=== PATIENT | female | born 1965 | race Caucasian/White ===

== ENCOUNTER 2017-03-17 13:17 | Emergency (ER) | payer OTHER ==
[2017-03-17] MEDS: NS 0.9% 1000 ML* 1,000 ML IV SCH ×2 (18:42→22:04)
[2017-03-17 18:50] LABS: Hematocrit 42 % (35-47); Hemoglobin 13.9 g/dl (12.0-16.0); Mean Corpuscular HGB Conc 33 g/dl (31-36); Mean Corpuscular Hemoglobin 28 pg (27-31); Mean Corpuscular Volume 86 fL (80-97); Mean Platelet Volume 10 um3 (7.4-10.4); Red Blood Count 4.94 10^6/ul (4.0-5.4); Red Cell Distribution Width 15 % (10.5-15); White Blood Count 11.1 10^3/ul (3.5-10.8)
[2017-03-17 19:03] LABS: Urine Bacteria Absent (Absent); Urine Bilirubin Negative (Negative); Urine Glucose Negative (Negative); Urine Nitrite Negative (Negative)
[2017-03-17 19:08] LABS: Albumin 4.6 g/dL (3.2-5.2); BUN/Creatinine Ratio 13.2 (8-20); C Reactive Protein 2.92 mg/L (< 5.00); Calcium 9.6 mg/dL (8.6-10.3); EGFR African American 116.9 (>60); EGFR Non-African American 90.9 (>60); Globulin 3.6 g/dL (2-4); Potassium 3.4 mmol/L (3.5-5.0); Total Bilirubin 0.3 mg/dL (0.2-1.0); Total Protein 8.2 g/dL (6.4-8.9)
[2017-03-17] MEDS ORDERED: Iodixanol* (CONTRAST) 320 MG/ML 100 ML SDV IV ONE (20:06)
--- NOTE | 2017-03-17 20:08 | ED ---
Matteo Guerin Matthew, scribed for Sawyer Bolivar MD on 03/17/17 at 2008 . Abdominal Pain/Female - HPI Summary HPI Summary: A 51 y/o female presents to the ED with abdominal pain since 2 days ago. The pain is rated 8/10 in severity. Associated symptoms include bloating and decreased appetite. She states that she had an abdominal hernia 6 years ago and her current pain feels similar. - History of Current Complaint Chief Complaint: EDAbdPain Stated Complaint: ABDOMINAL PAIN Time Seen by Provider: 03/17/17 19:32 Hx Obtained From: Patient ?: No Onset/Duration: Lasting Days, Still Present Timing: Constant Severity Initially: Moderate Severity Currently: Moderate Pain Intensity: 8 Pain Scale Used: 0-10 Numeric Associated Signs and Symptoms: Positive: Decreased Appetite, Other: - Bloating Allergies/Adverse Reactions: Allergies Allergy/AdvReac Type Severity Reaction Status Date / Time Penicillins [PCN] Allergy Intermediate Rash Verified 03/17/17 18:06 Aspirin Allergy Blisters Verified 03/17/17 18:06 Latex Allergy Rash Verified 03/17/17 18:06 NSAIDs Allergy Rash Verified 03/17/17 18:06 Sulfa Antibiotics Allergy Rash Verified 03/17/17 18:06 Meloxicam AdvReac Itching Verified 03/17/17 18:06 Tramadol AdvReac Unknown Verified 03/17/17 18:06 Reaction Details PMH/Surg Hx/FS Hx/Imm Hx Endocrine/Hematology History: Reports: Hx Diabetes - borderline type 2 Cardiovascular History: Reports: Hx Hypertension Denies: Hx Pacemaker/ICD Respiratory History: Reports: Hx Asthma, Hx Chronic Obstructive Pulmonary Disease (COPD) History: Denies: Hx Renal Disease Musculoskeletal History: Reports: Hx Arthritis, Hx Back Problems Denies: Hx Osteoporosis Sensory History: Reports: Hx Contacts or Glasses Denies: Hx Hearing Aid Opthamlomology History: Reports: Hx Contacts or Glasses Psychiatric History: Denies: Hx Panic Disorder - Cancer History Hx Chemotherapy: No Hx Radiation Therapy: No - Surgical History Surgery Procedure, Year, and Place: APPY, CHOLECYSTECTOMY, CSECTION X 1, EXPLORATORY STOMACH SURGERY, HYSTERECTOMY. STOMACH MESH - HERNIATION WITH MESH REPAIR. Infectious Disease History: No Infectious Disease History: Denies: Traveled Outside the [place] in Last 30 Days - Family History Family History: No FHx of breast CA - Social History Alcohol Use: None Substance Use Type: Reports: Marijuana Substance Use Comment - Amount & Last Used: SMOKES MARIJUANA OCCASSIONALLY, NONE IN LAST MONTH Smoking Status (MU): Current Every Day Smoker Type: Cigarettes Amount Used/How Often: 1/2 PPD Review of Systems Constitutional: Negative Eyes: Negative ENT: Negative Cardiovascular: Negative Respiratory: Negative Gastrointestinal: Other - decreased appetite; abdominal bloating Positive: Abdominal Pain Genitourinary: Negative Musculoskeletal: Negative Skin: Negative Neurological: Negative Psychological: Normal All Other Systems Reviewed And Are Negative: Yes Physical Exam Triage Information Reviewed: Yes Vital Signs On Initial Exam: Initial Vitals Temp Pulse Resp BP Pulse Ox 97.7 F 87 19 177/96 97 03/17/17 13:20 03/17/17 13:20 03/17/17 13:20 03/17/17 13:20 03/17/17 13:20 Vital Signs Reviewed: Yes Appearance: Positive: Well-Appearing, Pain Distress - mild discomfort, Obese Skin: Positive: Warm Head/Face: Positive: Normal Head/Face Inspection Eyes: Positive: ALYSE ENT: Positive: Hearing grossly normal Neck: Positive: Supple Respiratory/Lung Sounds: Positive: Clear to Auscultation, Breath Sounds Present Cardiovascular: Positive: RRR Abdomen Description: Positive: No Organomegaly, Soft, Other: - mild mid abd tenderness Bowel Sounds: Positive: Present Musculoskeletal: Positive: Strength/ROM Intact Neurological: Positive: Sensory/Motor Intact, Alert, Oriented to Person Place, Time Psychiatric: Positive: Affect/Mood Appropriate Diagnostics - Vital Signs Vital Signs Temp Pulse Resp BP Pulse Ox 03/17/17 18:05 78 97 03/17/17 18:03 139/94 03/17/17 18:02 97.4 F 80 18 139/94 98 03/17/17 16:40 97.6 F 81 17 136/68 97 03/17/17 15:49 97.7 F 71 19 130/70 98 03/17/17 14:30 97.6 F 81 17 135/74 98 03/17/17 13:20 97.7 F 87 19 177/96 97 - Laboratory Lab Results: Lab Results 03/17/17 03/17/17 03/17/17 Range/Units 16:44 18:40 18:40 WBC 11.1 H (3.5-10.8) 10^3/ul RBC 4.94 (4.0-5.4) 10^6/ul Hgb 13.9 (12.0-16.0) g/dl Hct 42 (35-47) % MCV 86 (80-97) fL MCH 28 (27-31) pg MCHC 33 (31-36) g/dl RDW 15 (10.5-15) % Plt Count 182 (150-450) 10^3/ul MPV 10 (7.4-10.4) um3 Neut % (Auto) 63.0 (38-83) % Lymph % (Auto) 27.9 (25-47) % Schuyler % (Auto) 7.0 (1-9) % Eos % (Auto) 1.2 (0-6) % Baso % (Auto) 0.9 (0-2) % Absolute Neuts (auto) 7.0 (1.5-7.7) 10^3/ul Absolute Lymphs (auto) 3.1 (1.0-4.8) 10^3/ul Absolute Monos (auto) 0.8 (0-0.8) 10^3/ul Absolute Eos (auto) 0.1 (0-0.6) 10^3/ul Absolute Basos (auto) 0.1 (0-0.2) 10^3/ul Absolute Nucleated RBC 0.01 10^3/ul Nucleated RBC % 0.1 INR (Anticoag Therapy) 0.82 L (0.89-1.11) APTT 28.2 (26.0-36.3) seconds Sodium (133-145) mmol/L Potassium (3.5-5.0) mmol/L Chloride (101-111) mmol/L Carbon Dioxide (22-32) mmol/L Anion Gap (2-11) mmol/L BUN (6-24) mg/dL Creatinine (0.51-0.95) mg/dL Est GFR ( Amer) (>60) Est GFR (Non-Af Amer) (>60) BUN/Creatinine Ratio (8-20) Glucose (70-100) mg/dL POC Glucose (mg/dL) 113 H (74-106) mg/dL Lactic Acid (0.5-2.0) mmol/L Calcium (8.6-10.3) mg/dL Total Bilirubin (0.2-1.0) mg/dL AST (13-39) U/L ALT (7-52) U/L Alkaline Phosphatase (34-104) U/L C-Reactive Protein (< 5.00) mg/L Total Protein (6.4-8.9) g/dL Albumin (3.2-5.2) g/dL Globulin (2-4) g/dL Albumin/Globulin Ratio (1-3) Lipase (11.0-82.0) U/L Urine Color Urine Appearance Urine pH (5-9) Ur Specific Hazen (1.010-1.030) Urine Protein (Negative) Urine Ketones (Negative) Urine Blood (Negative) Urine Nitrate (Negative) Urine Bilirubin (Negative) Urine Urobilinogen (Negative) Ur Leukocyte Esterase (Negative) Urine WBC (Auto) (Absent) Urine RBC (Auto) (Absent) Ur Squamous Epith Cells (Absent) Urine Bacteria (Absent) Urine Glucose (Negative) 03/17/17 03/17/17 03/17/17 Range/Units 18:40 18:40 18:45 WBC (3.5-10.8) 10^3/ul RBC (4.0-5.4) 10^6/ul Hgb (12.0-16.0) g/dl Hct (35-47) % MCV (80-97) fL MCH (27-31) pg MCHC (31-36) g/dl RDW (10.5-15) % Plt Count (150-450) 10^3/ul MPV (7.4-10.4) um3 Neut % (Auto) (38-83) % Lymph % (Auto) (25-47) % Schuyler % (Auto) (1-9) % Eos % (Auto) (0-6) % Baso % (Auto) (0-2) % Absolute Neuts (auto) (1.5-7.7) 10^3/ul Absolute Lymphs (auto) (1.0-4.8) 10^3/ul Absolute Monos (auto) (0-0.8) 10^3/ul Absolute Eos (auto) (0-0.6) 10^3/ul Absolute Basos (auto) (0-0.2) 10^3/ul Absolute Nucleated RBC 10^3/ul Nucleated RBC % INR (Anticoag Therapy) (0.89-1.11) APTT (26.0-36.3) seconds Sodium 137 (133-145) mmol/L Potassium 3.4 L (3.5-5.0) mmol/L Chloride 100 L (101-111) mmol/L Carbon Dioxide 28 (22-32) mmol/L Anion Gap 9 (2-11) mmol/L BUN 9 (6-24) mg/dL Creatinine 0.68 (0.51-0.95) mg/dL Est GFR ( Amer) 116.9 (>60) Est GFR (Non-Af Amer) 90.9 (>60) BUN/Creatinine Ratio 13.2 (8-20) Glucose 123 H (70-100) mg/dL POC Glucose (mg/dL) (74-106) mg/dL Lactic Acid 2.3 H* (0.5-2.0) mmol/L Calcium 9.6 (8.6-10.3) mg/dL Total Bilirubin 0.30 (0.2-1.0) mg/dL AST 21 (13-39) U/L ALT 25 (7-52) U/L Alkaline Phosphatase 111 H (34-104) U/L C-Reactive Protein 2.92 (< 5.00) mg/L Total Protein 8.2 (6.4-8.9) g/dL Albumin 4.6 (3.2-5.2) g/dL Globulin 3.6 (2-4) g/dL Albumin/Globulin Ratio 1.3 (1-3) Lipase 26 (11.0-82.0) U/L Urine Color Yellow Urine Appearance Cloudy Urine pH 5.0 (5-9) Ur Specific Hazen 1.013 (1.010-1.030) Urine Protein Negative (Negative) Urine Ketones Negative (Negative) Urine Blood Negative (Negative) Urine Nitrate Negative (Negative) Urine Bilirubin Negative (Negative) Urine Urobilinogen Negative (Negative) Ur Leukocyte Esterase 1+ H (Negative) Urine WBC (Auto) 1+(6-10/hpf) H (Absent) Urine RBC (Auto) Trace(0-2/hpf) (Absent) Ur Squamous Epith Cells Present H (Absent) Urine Bacteria Absent (Absent) Urine Glucose Negative (Negative) Result Diagrams: 03/17/17 18:40 03/17/17 18:40 Lab Statement: Any lab studies that have been ordered have been reviewed, and results considered in the medical decision making process. - CT A/P CT CT Interpretation: No Acute Changes - IMPRESSION: 1. NO EVIDENCE FOR ACUTE FINDING OR CAUSE FOR THE PATIENT'S ABDOMINAL PAIN IS SEEN. 2. HEPATOMEGALY AND HEPATIC STEATOSIS. 3. STATUS POST CHOLECYSTECTOMY AND HYSTERECTOMY. 4. STATUS POST ANTERIOR ABDOMINAL WALL HERNIA REPAIR. NO EVIDENCE FOR RECURRENT HERNIA. CT Interpretation Completed By: Radiologist Re-Evaluation - Re-Evaluation First Eval Change: Improved Comment: results d/w pt Abdominal Pain Fem Course/Dx - Course Course Of Treatment: A 51 y/o female presents to the ED with abdominal pain since 2 days ago. The pain is rated 8/10 in severity. Associated symptoms include bloating and decreased appetite. She states that she had an abdominal hernia 6 years ago and her current pain feels similar. Labs were reviewed and lactic acid was 2.3. CT A/P shows 1. no evidence for acute finding or cause for the patient's abdominal pain is seen. 2. hepatomegaly and hepatic steatosis. 3. status post cholecystectomy and hysterectomy. 4. status post anterior abdominal wall hernia repair. no evidence for recurrent hernia. In the ED course, the patient was given Morphine and 1L of IV fluids. The patient will be discharged home to follow-up with her PCP. - Diagnoses Provider Diagnoses: Abdominal pain Discharge - Discharge Plan Condition: Stable Disposition: HOME Patient Education Materials: Abdominal Pain (ED) Referrals: Maddie Manzo MD [Primary Care Provider] - 2 Days Additional Instructions: Please follow-up with your primary care physician in 2 days. The documentation as recorded by the Matteo lemos Matthew accurately reflects the service I personally performed and the decisions made by me, Sawyer Bolivar MD.
[2017-03-17] MEDS ORDERED: Morphine INJ* 2 MG/ML 1 ML SYRINGE IV ONE (21:35)
--- NOTE | 2017-03-17 22:44 | RAD ---
INDICATION: Abdominal pain, history of mesh hernia repair. COMPARISON: There are no prior studies available for comparison. TECHNIQUE: A CT scan of the abdomen and pelvis was performed with intravenous and oral contrast following intravenous injection of 114 ml of 320 nonionic contrast. Contiguous axial sections were obtained from the lung bases through the symphysis pubis. Images were reconstructed in the coronal and sagittal planes. FINDINGS: The lung bases are clear. No pleural effusion is present. The liver is moderately enlarged and decreased in attenuation consistent with fatty infiltration. No significant focal abnormality is seen. The patient is status post cholecystectomy. No intrahepatic ductal distention is seen. There is mild extrahepatic ductal distention measuring 1 cm in diameter likely within normal limits in this postcholecystectomy patient. The spleen is within normal limits in size. The pancreas appears to be within normal limits. The kidneys and adrenal glands are normal in size. No hydronephrosis is seen. No significant focal renal abnormality is seen. The aorta is normal in caliber with mild calcific plaque present. No significant enlarged retroperitoneal lymph nodes are seen. The stomach, small and large bowel appear nondistended. The patient is status post appendectomy by history. There is no evidence for diverticulitis or colitis. The patient is status post anterior abdominal wall hernia repair. There is a mesh graft noted in place. There is no evidence for recurrent hernia. The patient is status post hysterectomy. No free intraperitoneal air or fluid is seen. No significant focal osseous abnormality is seen. IMPRESSION: 1. NO EVIDENCE FOR ACUTE FINDING OR CAUSE FOR THE PATIENT'S ABDOMINAL PAIN IS SEEN. 2. HEPATOMEGALY AND HEPATIC STEATOSIS. 3. STATUS POST CHOLECYSTECTOMY AND HYSTERECTOMY. 4. STATUS POST ANTERIOR ABDOMINAL WALL HERNIA REPAIR. NO EVIDENCE FOR RECURRENT HERNIA.
[2017-03-17 23:22] VITALS: BP 158/96
== END 2017-03-17 23:20 | disposition home or self-care (01) ==
LOC: ED 13:17
DX: R10.9 Unspecified abdominal pain (principal); F17.210 Nicotine dependence, cigarettes, uncomplicated
CPT/HCPCS: 36415; 74177; 80053; 81003; 81015; 83605; 83690; 85025; 85610; 85730; 86140; 87086; 99283; J2270; Q9967

== ENCOUNTER 2019-06-01 08:45 | Inpatient (IN) | payer OTHER ==
--- NOTE | 2019-05-16 13:40 | HP ---
AMENDED REPORT NOW INCLUDES DESIGNATED COSIGNER PREOPERATIVE HISTORY AND PHYSICAL: DATE OF ADMISSION: 06/01/19 ATTENDING PHYSICIAN: Dr. Tamia Odom.* (DICTATED BY JONO SOMMER) CHIEF COMPLAINT: Left hip pain. SURGERY SCHEDULED: Left total hip arthroplasty. HISTORY OF PRESENT ILLNESS: Ms. Paige is a 53-year-old female with a history of 2 years of left hip pain. She has 8/10 pain in her left groin and lateral hip. She is needed to use a cane. She has tried antiinflammatories, pain medication, muscle relaxers, ice, rest, home exercise program, and physical therapy without relief of her left hip pain. Her plain films revealed advanced degenerative arthritis and she is now elected to proceed with left total hip arthroplasty, which is scheduled for 06/01/19. PAST MEDICAL HISTORY: Significant for hypertension, COPD, asthma, hypercholesterolemia, chronic back pain, lupus, diabetes, depression, anxiety and sleep apnea. PAST SURGICAL HISTORY: She has had cataract surgery both eyes, , appendectomy, cholecystectomy, abdominal laparotomy, hernia repair. CURRENT MEDICATIONS: 1. Gabapentin 400 mg 1 tablet t.i.d. 2. Metformin 500 mg 1 tablet b.i.d. 3. Lisinopril/hydrochlorothiazide 20/12.5 mg 1 p.o. daily. 4. Potassium chloride ER 20 mEq 1 tablet daily. 5. Nicotrol 10 mg inhaler every 1 to 3 hours as needed. 6. Clonazepam 0.5 mg 1 q.a.m., 1 q.p.m., and 2 q.h.s. 7. Escitalopram 20 mg p.o. daily. 8. Amlodipine 2.5 mg p.o. daily. 9. Fenofibrate 160 mg p.o. daily. 10. Albuterol inhaler, nebulizer 4 times a day as needed. 11. Omeprazole 40 mg 1 tablet q.a.m. 12. Nateglinide 60 mg 3 times daily. 13. Trazodone 300 mg 1 p.o. q.h.s. 14. Methocarbamol 500 mg 2 tabs p.o. t.i.d. p.r.n. muscle spasm. ALLERGIES: To PENICILLIN, SULFA, LATEX, TRAMADOL, MELOXICAM, ADHESIVE TAPE, and BEE VENOM. FAMILY HISTORY: Mother with a history of diabetes and hypertension. Father with a history of colorectal cancer and lung cancer. SOCIAL HISTORY: The patient states she lives alone. She is currently disabled. She continues to smoke cigarettes, roughly one-half pack cigarettes per day. She denies use of alcohol. She states she uses marijuana for anxiety. REVIEW OF SYSTEMS: A 14-point review of systems reviewed. Positive for left hip pain, diarrhea, chronic back pain, prior fracture, weight loss, fatigue, easy bleeding and bruising, seasonal allergies, depression, and anxiety. PHYSICAL EXAMINATION GENERAL: She is alert and oriented x3, in no acute distress, pleasant, cooperative. VITAL SIGNS: Height 4 feet 10 inches tall, weight 186 pounds. Pulse 62, BP 124 /82. HEENT: PERRLA. EOMI. LUNGS: Clear to auscultation without wheeze. HEART: Regular rate and rhythm. Positive murmur auscultated. ABDOMEN: Soft, nontender. Normoactive bowel sounds x4 quadrants. EXTREMITIES: Left lower extremity: The patient's skin is intact. No abrasions or open wounds. Hip flexion to 95 degrees, 0 degrees internal rotation, 35 degrees external rotation. She has full sensation distally. She has active dorsiflexion of the left ankle. She has 2+ dorsalis pedis pulse. IMPRESSION: Advanced degenerative arthritis, left hip. PLAN: The patient has failed conservative management and continues to have debilitating left hip pain. She is scheduled for left total [place] Tamia [place] [facility] [place] The patient has been cleared medically by her primary care provider; however, cardiac clearance will need to be obtained due to the new onset murmur. She is scheduled to see a donor technician 05/26/19 for preoperative cardiology clearance. Risks and benefits of procedure fully discussed by Dr. Odom today. All questions were answered at her preoperative history and physical examination today 05/15/19. JONO VELASQUEZ [id number]/[facility] #: [id number]
[~2019-06-01 08:45] MED LIST: Acetaminophen TAB* 325 MG PO ONE; Buffered Lidocaine 1% SYRIN* 1 ML/SYRINGE INTRADERM ONE; Famotidine IV* 10 MG/ML 2 ML (20 mg) IV ONE; Lactated Ringers 1000 ML Bag* 1,000 ML IV SCH; Tranexamic Acid 1,000 MG in NS 0.9% 50 ML* (outpatient use) IV SCH
--- OUTSIDE RECORDS SUMMARY | 2019-06-01 08:49 | XMS REPORT | Continuity of Care Document ---
:1965 External Reference #:[id number] Author Name Carol Flores Care Team Providers Name Role Phone Carleen Murrieta M.D. Primary Care Physician Unavailable Payers Date Identification Numbers Payment Provider Subscriber Effective: 2012 Policy Number: [id number] Jonathan Juan Francisco Paige Group Name: [id number] [address] PayID: [id number] [place] [address] Advance Directives Type Date Description Status Comment Other Directive 11/19/2017 Health Care Proxy Current and Verified Problems Active Problems Provider Date Essential hypertension Maddie Manzo M.D. Onset: 03/24/2012 Degenerative joint disease involving multiple Maddie Manzo M.D. Onset: 01/2012 joints Tobacco user Maddie Manzo M.D. Onset: 03/24/2012 Chronic obstructive lung disease Maddie Manzo M.D. Onset: 03/24/2012 Family history of cancer of colon Maddie Manzo M.D. Onset: 01/30/2015 Note: 1st degree relative Internal hemorrhoids without Maddie Manzo M.D. Onset: 01/30/2015 complication Chronic paranoid schizophrenia Maddie Manzo M.D. Onset: 01/30/2015 Insomnia Maddie Manzo M.D. Onset: 01/30/2015 Hypertriglyceridemia Maddie Manzo M.D. Onset: 01/30/2015 Type 2 diabetes mellitus in obese Maddie Manzo M.D. Onset: 01/30/2015 Allergic rhinitis Maddie Manzo M.D. Onset: 12/30/2015 Morbid obesity Maddie Manzo M.D. Onset: 12/30/2015 Cannabis abuse Maddie Manzo M.D. Onset: 12/30/2015 Osteopenia Maddie Manzo M.D. Onset: 02/08/2013 Obstructive sleep apnea syndrome Nabil Beasley M.D. Onset: 04/09/2016 Obesity Bety Diallo DNP, RN, Onset: 07/22/2016 DISABILITY PROGRAM NAVIGATOR-BC Type 2 diabetes mellitus Jefferson Long M.D. Onset: 11/19/2017 Chronic obstructive pulmonary disease Jefferson Long M.D. Onset: 2016 with (acute) exacerbation Gastroesophageal reflux disease Jefferson Long M.D. Onset: 11/19/2017 Localized, primary osteoarthritis of Tamia Odom M.D. Onset: 04/10/2019 the pelvic region and thigh Inactive Problems Impaired fasting glycaemia Maddie Manzo M.D. Onset: 03/24/2012 Inactive: 02/03/2015 Family History Date Family Member(s) Observation Comments General Diabetes General Heart Disease General Hypertension General Stroke General Cancer General Rheumatoid Arthritis Father due to Heart () - smoker + Disease Colon cancer in late 50's Mother due to Pneumonia () - 70 Mother due to Diabetes () Onset: (age 23 Children 1 daughter ( healthy) Years) Siblings 4 Social History Type Date Description Comments Sex Unknown Marital Status Significant Other Marital Status Lives With Alone Occupation Unemployed ETOH Use Denies alcohol use Recreational Drug Use Current Drug User Tobacco Use Start: Unknown Heavy tobacco smoker (more than 10 cigarettes/day) Recreational Drug Use marihuana Smoking Status Reviewed: 05/15/19 Heavy tobacco smoker (more than 10 cigarettes/day) Exercise Type/Frequency Exercises regularly Currently Active Patient is currently sexually active Allergies, Adverse Reactions, Alerts Active Allergies Reaction Severity Comments Date Penicillin Contact dermatitis 03/24/2012 Sulfa Contact dermatitis 03/24/2012 Latex Contact dermatitis 03/24/2012 Antiinflamatory Drugs Blisters ?? has taken ibuprofen 03/24/2012 with no issues Bee Sting throat swelling 03/08/2013 /difficulty breathing Tramadol 03/24/2017 Meloxicam 03/24/2017 Adhesive 04/10/2019 Medications Active Medications SIG Qnty Indications Ordering Date Provider Clindamycin HCL take one tab 2 times 10caps Tamia Odom, 05/22/2019 150mg a day for 5 days M.D. Capsules Walker rolling walker with 1units Z47.1 Tamia Odom, 04/19/2019 [facility] [place] seat dx: s/p left M.D. hip replacement; left hip OA Toilet Seat Elevator s/p left hip 1units Z47.1 Tamia Odom, 04/19/2019 replacement M.D. [facility] [place] Cane standard adjustable 1units Tamia Odom, 04/10/2019 [facility] [place] height cane. dx: M.D. left hip OA Ketoconazole apply twice a day as 120units B35.4 [place] 07/28/2018 2% Cream needed Aurea Long Freestyle Lite Test test BS 2 times a 100units E11.9 [place] 07/15/2018 day and prn Pachika, Strips M.D. Calcium Take One Tablet By 90tabs [facility] 01/31/2018 Carbonate-Vitamin D Mouth Every Day Aurea Manzo [id number] Tablets Omeprazole Take 1 Capsule By 30caps K21.9 [place] 11/19/2017 40mg Mouth In The Morning EkaterinaikaMikhail scott DR 1 Hour Before Eating M.DAngel Nebulizer every 4-6 hrs as 1units J44.1 [facility] 09/01/2017 [facility] [place] needed Aurea Manzo Albuterol Sulfate Inhale The Contents 300units J44.1 [facility] 09/01/2017 Of One Vial Via Aurea Manzo (2.5mg/3ML) 0.083% Nebulizer Four Times Nebulizer A Day as Needed Fenofibrate take one tablet once 90tabs E78.1 [place] 07/06/2017 160mg daily Pachikara, Tablets Aurea Amlodipine Besylate take one tablet by 90tabs I10 Constantino Garcia 01/21/2016 mouth every day Ono, 2.5mg Tablets M.D.,FACP Freestyle Lancets 2 daily and as 100units E11.9 [facility] 08/06/2014 needed Aurea Manzo [facility] [place] Freestyle Glucometer test 2 times a day 1units Maddie 08/06/2014 Aurea Manzo Epipen 2-Timi subcutaneously as 2unmarcelle Perkins 05/27/2014 needed for Aurea Manzo 0.3mg/0.3ML Solution anaphylaxis Auto-Inject Ventolin HFA Inhale Two Puffs By 18unmarcelle Paulino 03/13/2013 Mouth Every 4 Hours Pachika, 108(90Base) mcg/Act as Needed M.DAngel Aerosol Potassium Chloride Take One Tablet By 30tabs Maddie 10/10/2012 [facility] ER Mouth Every Day Aurea Manzo 20Meq Tablets ER Cetirizine HCL 1 by mouth every day Unknown 10mg Tablets Betoptic-S Instill 1 Drop In Unknown 0.25% Both Eyes Two Times Suspension A Day Latanoprost as directed Christiana 0.005% Wayne Elias MD Solution Metformin HCL 1 by mouth twice a Unknown 500mg day Tablets Ibuprofen one tablet by mouth Unknown 600mg every 6 hours as Tablets needed pain Gabapentin take one capsule by Unknown 400mg mouth 3 times a day Capsules Hydrocodone-Acetamin 1 tab every 4 hours Unknown ophen up to 6 a day 7.5-325mg Tablets Lisinopril-Hydrochlo take one tablet by 90tabs Jefferson rothiazide mouth every day Mercedes 20-12.5mg M.DAngel Tablets Methocarbamol 2 tabs by mouth tid Unknown 500mg as needed for spasm Tablets Mirtazapine 1 tab po hs 30tabs Unknown 15mg Tablets Dispers Ziprasidone HCL 1 tab po qd Unknown 60mg Capsules Clonazepam 2 po qd 60tabs Unknown 0.5mg Tablets Trazodone HCL 1 po qhs 7tabs Unknown 300mg Tablets History Medications Clotrimazole apply twice daily 90gm B35.4 Jefferson 07/14/2018 - 1% to back of right Aurea Long 07/28/2018 Cream thigh Montelukast Sodium Take One Tablet By 30tabs J30.2 [place] 04/26/2018 - Mouth Every Day Aurea Long 05/01/2019 10mg Tablets Nateglinide three times a day 90tabs [place] 02/16/2018 - 60mg Aurea Long 05/01/2019 Tablets Prednisone 2 tab by mouth 5 10tabs [place] 11/30/2017 - 20mg days Aurea Long 01/13/2018 Tablets Metformin HCL Take One Tablet By 180tabs Constantino Garcia 11/29/2017 - Mouth Twice A Day Aurea Yarbrough,[facility] 05/01/2019 1000mg Tablets Azithromycin 2 tab today and 6tabs [place] 11/23/2017 - 250mg then 1tab daily Aurea Long 11/28/2017 Tablets Mucinex 1 tab twice a day 30tabs [place] 11/23/2017 - 600mg by mouth Aurea Long 04/25/2018 Tablets ER 12HR Cheratussin ac 10 milliliters by 473ml Constantino Garcia 09/16/2017 - mouth four times a Aurea Yarbrough,[facility] 11/19/2017 100-10mg/5ML Syrup day as needed Azithromycin 2 tab today and 6tabs J06.9 [place] 09/07/2017 - 250mg then 1tab daily Aurea Long 04/25/2018 Tablets Prednisone 3 tab by mouth QS J44.1 Maddie Manzo, 09/01/2017 - 20mg every day x1 day M.DAngel 09/11/2017 Tablets then 2 tab daily for 3 days, then 1 tab daily X 3 days then 1/2 tab daily for 3 days Nicotrol every 6 hrs as 168units F17.210 Maddie Manzo, 09/01/2017 - 10mg needed for M.D. 04/25/2018 Inhaler cravings Magnesium 1 by mouth daily 30tabs Maddie Manzo, 07/18/2017 - 400mg M.D. 05/01/2019 Tablets Calcium 600-D 1 by mouth every 90tabs Maddie Manzo, 02/24/2017 - day M.DAngel 01/31/2018 [id number] Tablets Atorvastatin 1 by mouth every 90tabs E78.2 Maddie Manzo, 02/15/2017 - Calcium day M.D. 07/06/2017 10mg Tablets Levaquin 1 by mouth every 14tabs S92.511A Philipp Armijo, 08/06/2016 - 500mg day x 14 days - M.D. 02/15/2017 Tablets verbal order given to lavelle at [facility] (No longer taking) Nicotine Step 3 once a day 30units Z71.6 Maddie Manzo, 07/23/2016 - M.D. 07/05/2017 7mg/24HR Patches 24HR Lidocaine apply patch up to 30units Maddie Manzo, 07/01/2016 - 5% 12 hours once a M.D. 03/23/2017 Patches day. (pt not using due to insurance) Lidocaine apply to painful 35.440gm Maddie Manzo, 05/05/2016 - 5% areas three times M.D. 03/23/2017 Ointment a day as needed. Ibuprofen Take One Tablet By 45tabs Maddie Manzo, 04/21/2016 - 400mg Mouth Every 8 hrs M.D. 05/02/2019 Tablets as Needed For Lower Back Pain (taking 600mg) Caltrate 600+D 1 by mouth once a 60tabs Maddie Manzo, 03/23/2016 - day M.D. 02/23/2017 [id number] Tablets Ibuprofen Take One Tablet By 30tabs Maddie Manzo, 03/16/2016 - 600mg Mouth Three Times M.D. 04/21/2016 Tablets A Day as Needed Freestyle 28G Use For Testing 100units Maddie Manzo, 01/16/2016 - Lancets Two Times A Day as M.D. 07/15/2018 Needed Freestyle Lite Test use for testing 100units E11.9 Jefferson 01/15/2016 - two times a day Rachel Long.DAngel 07/15/2018 Strip Atorvastatin take one tablet by 90tabs E78.1 Maddie Manzo, 12/30/2015 - Calcium mouth at bedtime M.D. 02/15/2017 20mg Tablets Ibuprofen Take One Tablet By 45tabs M15.0 Maddie Manzo, 12/16/2015 - 400mg Mouth Every Day as M.D. 03/16/2016 Tablets Needed For Lower Back Pain Permethrin apply to all body 1units B86 Maddie Manzo, 12/10/2015 - 5% Cream once/may repeat in M.D. 03/23/2017 1 week (Never used) Freestyle Lite Test Use as Directed 100units Shirlene 11/19/2015 - Every Day 2 To 3 Cotton, M.D. 01/15/2016 Strip Times Or as Needed Benzonatate one by mouth three 30caps Paola Hopson, 09/13/2015 - 100mg times daily as N.P. 09/23/2015 Capsules needed for cough Doxycycline Hyclate 1 tablet twice a 20tabs J01.80 Maddie Manzo, 2014 - day x 10 days M.D. 12/10/2015 100mg Tablets Prednisone take 4 tab daily x QS J44.1 Maddie Manzo, 09/12/2015 - 10mg 2 days then 3 tab M.D. 12/10/2015 Tablets daily x 3 days and then 2 tab daily x 3 days then 1 tab daily X 3 days Albuterol Sulfate every 6 hours as 75ml J44.1 Maddie Manzo, 09/12/2015 - needed M.D. 09/01/2017 1.25mg/3ML Nebulizer Percocet 11/23 -1 tab by 14tabs M15.0 Maddie Manzo, 08/05/2015 - 5-325mg mouth every 12 M.D. 12/16/2015 Tablets hours as needed pain Fexofenadine HCL 1 by mouth every 90tabs Maddie Manzo, 05/14/2015 - day as needed for M.D. 11/19/2017 180mg Tablets allergies Doxycycline Hyclate 1 tablet twice a 20tabs 461.8 Maddie Manzo, 2014 - day x 10 days M.D. 08/05/2015 100mg Tablets Requip Take One Tablet By 30tabs G25.81 Maddie Manzo, 05/14/2015 - 0.25mg Mouth AT Bedtime M.D. 04/09/2019 Tablets Nicotine Polacrilex as needed for 30units 305.1 Maddie Manzo, 2014 - cravings M.D. 05/14/2015 2mg Lozenges Fluticasone [place] One [place] In 16units Jefferson 02/20/2015 - Propionate Each Nostril Every Pachikara, M.D. 05/01/2019 Day 50mcg/Act Suspension Benzonatate one by mouth three 30caps Paola Hopson, 02/01/2015 - 100mg times daily as N.P. 02/15/2015 Capsules needed for cough Advair Diskus Inhale One puff By 60units J44.9 Maddie Manzo, 01/30/2015 - Mouth Twice A Day M.D. 04/09/2019 250-50mcg/Dose Aerosol Doxycycline Hyclate 1 by mouth twice a 14caps Maddie Manzo, 01/30/2015 - day M.D. 02/20/2015 100mg Capsules Azithromycin take 2 tab on day 6tabs 461.8 Maddie Manzo, 01/30/2015 - 250mg 1 then 1 tab daily M.D. 01/30/2015 Tablets x 4 days Freestyle Lite Test use as directed 100units Maddie Manzo, 08/06/2014 - Strip every day 2-3 or M.D. 11/19/2015 as needed dx: 250.00 Accucheck Purvi check bs 2 100units 250.00 Maddie Manzo, 08/02/2014 - Chem Strips times/day dx M.D. 08/06/2014 250.00 Accucheck Lancets check bs 2 times a 100units 250.00 Maddie Manzo, 08/02 - day M.D. 08/06/2014 Accu-Check Glucose check 2-3 times a 1units E11.9 Maddie Manzo, 2013 - Monitor day dx 250.00 M.D. 01/15/2016 Device Ibuprofen Take One Tablet By 90tabs 715.09 Maddie Manzo, 08/02/2014 - 600mg Mouth Three Times M.D. 12/16/2015 Tablets A Day as Needed for severe pain Metformin HCL Take One Tablet By 60tabs E11.9 Maddie Manzo, 08/02/2014 - 500mg Mouth Twice A Day M.D. 11/29/2017 Tablets Accu-Chek Softclix Use as Directed as 100units Maddie Manzo, 2012 - Lancets Needed M.D. 01/15/2016 Misc Caltrate 600+D 1 by mouth once a 60tabs Maddie Manzo, 09/14/2013 - day M.D. 03/23/2016 [id number] Tablets Fluconazole 1 po qd 2tabs 112.1 Maddie Manzo, 07/05/2013 - 150mg M.D. 08/07/2013 Tablets Calcium 500 +D 1 po bid 60tabs Maddie Manzo, 06/06/2013 - M.D. 09/14/2013 [id number] Tablets Fluconazole 1 po then repeat 2tabs Angélica Lee, 05/16/2013 - 150mg x1 in 1week M.D. 06/06/2013 Tablets Ergocalciferol 1 tab by mouth 8caps Maddie Manzo, 04/24/2013 - every week M.D. 06/06/2013 [id number] Capsules 2-Timi sc as needed as 1units Maddie Manzo, 03/20/2013 - 0.3mg/0.3ML needed for M.D. 08/05/2015 Device anaphylaxis Fluconazole 1 po qd 2tabs Maddie Manzo, 03/09/2013 - 150mg M.D. 06/06/2013 Tablets Nystatin apply to affected 5units 112.3 Maddie Manzo, 03/08/2013 - areas twice a day M.D. 08/07/2013 [id number]/GM as needed for rash Powder x 10 days Nicotine apply every day 30units 305.1 Maddie Manzo, 03/08/2013 - 7mg/24HR M.D. 08/07/2013 Patches 24HR Januvia 1 po qd 90tabs 112.1 Maddie Manzo, 01/25/2013 - 50mg M.D. 08/07/2013 Tablets Hydroxyzine tid Maddie Manzo, 12/27/2012 - M.D. 01/30/2015 Fluticasone 1 squirts each 1units 477.9 Maddie Manzo, 12/27/2012 - Propionate nostril qd M.D. 03/12/2014 50mcg/Act Suspension Claritin take one tablet by 90tabs 477.9 Maddie Manzo, 12/27/2012 - 10mg mouth every day as M.D. 05/14/2015 Tablets needed for [id number] Blood test daily 1units Juliana Spann, 11/11/2012 - Glucose Monitoring N.P. 01/15/2016 System w/Device Kit Truetest Blood test daily 50units Maddie Manzo, 11/11/2012 - Glucose T Est M.D. 01/15/2016 Strips Ciprofloxacin HCL 1 tab by mouth 20tabs 616.3 Maddie Manzo, 11/03/2012 - twice a day M.D. 12/27/2012 500mg Tablets Fluconazole 1 po qd 3tabs 112.1 Maddie Manzo, 11/03/2012 - 150mg M.D. 12/27/2012 Tablets Ciprofloxacin HCL 1 tab by mouth 14tabs 599.0 Maddie Manzo, 10/20/2012 - twice a day M.D. 11/03/2012 250mg Tablets Flovent Diskus 1 puff twice a 1units Maddie Manzo, 09/30/2012 - day, swish mouth M.D. 04/01/2015 250mcg/Blist 45 min afterwar Aerosol the intake Flovent Diskus 1 puff bid, swish 1units Maddie Manzo, 08/25/2012 - mouth 45 min M.D. 09/30/2012 250mcg/Blist afterwar the Aerosol intake Fluconazole 1 po daily X 3 3tabs Maddie Manzo, 08/11/2012 - 150mg days M.D. 08/16/2012 Tablets Albuterol Sulfate every 4-6 hrs as 1box Maddie Manzo, 08/04/2012 - needed M.D. 06/06/2013 (2.5mg/3ML) 0.083% Nebulizer Prednisone 3 tab by mouth 27tabs Maddie Manzo, 08/03/2012 - 20mg every day x3 days M.D. 08/16/2012 Tablets then 2 tab daily for 5 days, then 1 tab daily for 5 days then 1/2 tab daily for 5 days Levaquin 1 po qd 5tabs Maddie Manzo, 08/03/2012 - 750mg M.D. 08/16/2012 Tablets Percocet 1 tab po q12 h prn 10tabs 715.09 Angélica Lee, 08/02/2012 - 5-325mg pain M.D. 09/14/2013 Tablets Anusol-HC apply 5units 455.6 Maddie Manzo, 07/26/2012 - 25mg intrarectally M.D. 09/29/2012 Suppository every day Metamucil once a day as 30units 564.00 Maddie Manzo, 07/26/2012 - 48.57% needed M.D. 03/12/2014 Powder Percocet 1 tab bid 60tabs 715.98 Maddie Manzo, 06/30/2012 - 7.5-325mg M.D. 09/01/2012 Tablets Oxybutynin Chloride Take One Tablet By 90tabs Maddie Manzo, 06/13/2012 - Mouth Every Day M.D. 08/02/2014 5mg Tablets Vesicare once a day 30tabs 788.33 Maddie Manzo, 06/09/2012 - 5mg M.D. 06/13/2012 Tablets Oxycodone HCL 1 tablet po q 40tabs 715.09 Maddie Manzo, 06/09/2012 - 10mg 12hrs prn M.D. 07/10/2012 Tablets Nicotine as directed for 60units 305.1 Maddie Manzo, 05/26/2012 - 2mg Gum cravings M.D. 03/08/2013 Janumet Take One Tablet 90tabs Maddie Manzo, 05/04/2012 - 50-500mg tab by mouth every M.D. 01/25/2013 Tablets day Nicotine Polacrilex as needed for 60units 305.1 Maddie Manzo, 2011 - cravings M.D. 05/26/2012 2mg Lozenges Symbicort 2 puff inhaled bid 1units 496 Maddie Manzo, 04/25/2012 - M.D. 08/25/2012 160-4.5mcg/Act Aerosol Metformin HCL Take One Tablet By 60tabs Maddie Manzo, 03/30/2012 - 500mg Mouth Twice A Day M.D. 05/05/2012 Tablets Januvia Take One Tablet By 30tabs Maddie Manzo, 03/30/2012 - 50mg Mouth Every Day M.D. 05/05/2012 Tablets Gemfibrozil take one tablet by 180tabs E78.1 Maddielele Manzo, 03/29/2012 - 600mg mouth twice a day M.D. 12/30/2015 Tablets Accucheck Purvi check BS1- 2 100units 599.0 [facility] Jovany, 03/29/2012 - Chem Strips times/day M.D. 11/11/2012 Accucheck Lancets as needed 100units 599.0 [facility] Jovany, 03/29/2012 - (Soft-Clix) M.D. 11/11/2012 Accu-Check Glucose check 2-3 times a 1units 599.0 [facility] Jovany, 2011 - Monitor day M.D. 08/02/2014 Device Janumet 1 po bid 60tabs 599.0 Maddielele Manzo, 03/29/2012 - 50-500mg M.D. 03/30/2012 Tablets Percocet 1 tab times a day 56tabs 715.09 Maddievy Manzo, 03/24/2012 - 7.5-500mg as needed M.D. 06/09/2012 Tablets Morphine Sulfate take 1 tab every Unknown - 12 hours as needed 04/06/2019 15mg Tablets for pain. rx'd by pain clinic Famotidine Take One Tablet By 120tabs Maddie Manzo, - 40mg Mouth Twice A Day M.D. 11/19/2017 Tablets Hydrocodone-Acetami 1 tab by mouth 60tabs Unknown - nophen four times a day 03/25/2018 5-325mg Tablets Colace take 1-2 tab 2 Unknown - 100mg times a day as 11/19/2017 Capsules needed for constipation Dulcolax 1 PO bid Unknown - 5mg 05/01/[address] Duralax Unknown - 03/25/2017 Tylenol With 1 tablet by mouth Unknown - Codeine #3 every 6- 8 hours 07/05/2017 300-30mg as needed MDD=4 Tablets Amlodipine Besylate Take One Tablet By 90tabs Maddie Manzo, - Mouth Every Day M.D. 01/30/2014 5mg Tablets Gabapentin 1 po qd 90tabs Unknown - 600mg 06/06/2013 Tablets Anusol-HC apply 5units 455.6 Maddie Manzo, - 25mg intrarectally M.D. 10/20/2012 Suppository every day Benzonatate po tid prn 20caps Unknown - 200mg 09/29/2012 Capsules Hydrocodone/Acetami 1 po qid prn 120tabs Unknown - nophen 05/26/2012 10-650mg Tablets Gabapentin 1 po tid 120caps Unknown - 100mg 09/29/2012 Capsules Gabapentin 1 po tid Unknown - 400mg 09/29/2012 Capsules Potassium Chloride 1 po qd 30tabs Maddie Jovany, - CR M.D. 10/20/2012 20Meq Tablets ER Medications Administered in Office Medication SIG Qnty Indications Ordering Provider Date Depomedrol 40MG Roscoe Trinidad MD 04/11/2018 Injection Immunizations CPT Code Status Date Vaccine Lot # [id number] Given 04/01/2015 Pneumococcal Conjugate Vaccine 13 Valent For [id number] Intramuscular Use 36718 Given 09/26/2014 Flu Vaccine Split Virus Preservative Free For [id number] Indiv 3Yr Older 72096 Given 09/14/2013 Flu Vaccine Split Virus Preservative Free For [id number] Indiv 3Yr Older 21582 Given 01/25/2013 Pneumonia Vaccine [id number] Given 08/16/2012 Fluzone Vaccine [id number] Given 08/16/2012 Influenza Virus 3Yrs & Over [id number] Given 05/26/2012 Tdap - Tetanus/Diptheria/Acellular Pertussis [id number] Vital Signs Date Vital Result Comment 05/15/2019 1:39pm Height 59 inches 4'11" Weight 186.00 lb Heart Rate 62 /min BP Systolic 124 mmHg BP Diastolic 82 mmHg Respiratory Rate 16 /min Pain Level 9 BMI (Body Mass Index) 37.6 kg/m2 05/02/2019 10:45am Height 59 inches 4'11" Weight 185.00 lb Heart Rate 71 /min BP Systolic Sitting 182 mmHg BP Diastolic Sitting 94 mmHg Respiratory Rate 14 /min O2 % BldC Oximetry 93 % room air BMI (Body Mass Index) 37.4 kg/m2 04/10/2019 8:29am Height 59 inches 4'11" Weight 189.00 lb Heart Rate 72 /min BP Systolic 160 mmHg BP Diastolic 92 mmHg Pain Level 8 BMI (Body Mass Index) 38.2 kg/m2 07/28/2018 9:34am Height 58 inches 4'10" Weight 190.00 lb Heart Rate 79 /min BP Systolic 120 mmHg BP Diastolic 80 mmHg O2 % BldC Oximetry 93 % BMI (Body Mass Index) 39.7 kg/m2 07/14/2018 8:43am Height 58 inches 4'10" Weight 211.38 lb Body Temperature 97.7 F BMI (Body Mass Index) 44.2 kg/m2 04/26/2018 10:05am Heart Rate 68 /min BP Systolic Sitting 118 mmHg BP Diastolic Sitting 74 mmHg Respiratory Rate 16 /min Pain Level 7 O2 % BldC Oximetry 93 % 04/11/2018 1:16pm Height 58 inches 4'10" Weight 207.00 lb Heart Rate 74 /min BP Systolic 126 mmHg BP Diastolic 76 mmHg Respiratory Rate 12 /min Pain Level 6 BMI (Body Mass Index) 43.3 kg/m2 03/30/2018 10:10am Height 58 inches 4'10" Weight 209.50 lb Heart Rate 66 /min BP Systolic Sitting 118 mmHg Rue large cuff BP Diastolic Sitting 80 mmHg Rue large cuff Respiratory Rate 20 /min O2 % BldC Oximetry 92 % On Ra BMI (Body Mass Index) 43.8 kg/m2 03/25/2018 10:55am Height 58 inches 4'10" Weight 210.00 lb Heart Rate 91 /min BP Systolic Sitting 120 mmHg BP Diastolic Sitting 80 mmHg Body Temperature 97.6 F O2 % BldC Oximetry 91 % BMI (Body Mass Index) 43.9 kg/m2 01/13/2018 8:38am Height 58 inches 4'10" Weight 216.50 lb Heart Rate 71 /min BP Systolic Sitting 146 mmHg BP Diastolic Sitting 82 mmHg O2 % BldC Oximetry 94 % BMI (Body Mass Index) 45.2 kg/m2 11/19/2017 8:43am Height 58 inches 4'10" Weight 214.00 lb Heart Rate 73 /min BP Systolic Sitting 150 mmHg BP Diastolic Sitting 90 mmHg Body Temperature 97.5 F O2 % BldC Oximetry 94 % BMI (Body Mass Index) 44.7 kg/m2 09/07/2017 3:21pm Weight 218.00 lb Heart Rate 104 /min BP Systolic Sitting 118 mmHg BP Diastolic Sitting 70 mmHg Body Temperature 97.6 F O2 % BldC Oximetry 94 % 09/01/2017 2:47pm Weight 215.00 lb Heart Rate 75 /min BP Systolic Sitting 125 mmHg BP Diastolic Sitting 78 mmHg Respiratory Rate 19 /min Body Temperature 96.9 F O2 % BldC Oximetry 95 % 07/06/2017 10:50am Weight 218.00 lb Heart Rate 73 /min BP Systolic Sitting 140 mmHg BP Diastolic Sitting 82 mmHg Body Temperature 97.3 F O2 % BldC Oximetry 93 % 03/25/2017 8:48am Height 58 inches 4'10" Weight 226.12 lb Heart Rate 70 /min BP Systolic 140 mmHg BP Diastolic 84 mmHg Body Temperature 98.0 F O2 % BldC Oximetry 95 % BMI (Body Mass Index) 47.3 kg/m2 03/24/2017 8:37am Height 58 inches 4'10" Weight 220.00 lb Heart Rate 71 /min BP Systolic Sitting 126 mmHg BP Diastolic Sitting 78 mmHg Respiratory Rate 16 /min O2 % BldC Oximetry 94 % BMI (Body Mass Index) 46.0 kg/m2 02/15/2017 11:48am Height 58 inches 4'10" Weight 220.25 lb Heart Rate 74 /min BP Systolic 132 mmHg BP Diastolic 80 mmHg BP Systolic Sitting 148 mmHg Lue lrg cuff BP Diastolic Sitting 94 mmHg Lue lrg cuff Respiratory Rate 18 /min Body Temperature 98.0 F O2 % BldC Oximetry 95 % BMI (Body Mass Index) 46.0 kg/m2 09/29/2016 10:31am BP Systolic Sitting 112 mmHg BP Diastolic Sitting 82 mmHg Pain Level 4 in toe 08/27/2016 11:24am Height 58.5 inches 4'10.50" Weight 216.00 lb Pain Level 5 BMI (Body Mass Index) 44.4 kg/m2 08/06/2016 9:24am Height 58.5 inches 4'10.50" Weight 216.00 lb BP Systolic 130 mmHg BP Diastolic 80 mmHg Pain Level 4 BMI (Body Mass Index) 44.4 kg/m2 07/23/2016 11:44am Weight 214.00 lb Heart Rate 69 /min BP Systolic 118 mmHg BP Diastolic 78 mmHg Body Temperature 97.8 F O2 % BldC Oximetry 98 % 07/22/2016 11:38am Heart Rate 76 /min BP Systolic Sitting 130 mmHg BP Diastolic Sitting 70 mmHg Respiratory Rate 16 /min O2 % BldC Oximetry 95 % 06/30/2016 10:51am Weight 220.00 lb Heart Rate 90 /min BP Systolic Sitting 128 mmHg BP Diastolic Sitting 86 mmHg Body Temperature 97.9 F O2 % BldC Oximetry 97 % 04/09/2016 1:04pm Height 58 inches 4'10" Heart Rate 81 /min BP Systolic 124 mmHg BP Diastolic 84 mmHg Respiratory Rate 16 /min O2 % BldC Oximetry 95 % 02/04/2016 9:15am Heart Rate 84 /min BP Systolic Sitting 122 mmHg L Arm BP Diastolic Sitting 80 mmHg L Arm BP Systolic Standing 118 mmHg R Arm BP Diastolic Standing 82 mmHg R Arm 01/30/2016 1:47pm Height 58 inches 4'10" Weight 215.00 lb Heart Rate 86 /min BP Systolic 130 mmHg BP Diastolic 86 mmHg Respiratory Rate 14 /min O2 % BldC Oximetry 93 % BMI (Body Mass Index) 44.9 kg/m2 01/21/2016 10:58am Height 58 inches 4'10" Weight 215.00 lb Heart Rate 80 /min BP Systolic Sitting 160 mmHg BP Diastolic Sitting 90 mmHg O2 % BldC Oximetry 96 % BMI (Body Mass Index) 44.9 kg/m2 12/30/2015 11:46am Height 58 inches 4'10" Weight 217.00 lb Heart Rate 80 /min BP Systolic Sitting 132 mmHg BP Diastolic Sitting 88 mmHg Body Temperature 98.1 F O2 % BldC Oximetry 98 % BMI (Body Mass Index) 45.3 kg/m2 12/10/2015 11:59am Weight 218.00 lb Heart Rate 75 /min BP Systolic Sitting 110 mmHg BP Diastolic Sitting 66 mmHg Respiratory Rate 20 /min Body Temperature 96.4 F Pain Level 7 back O2 % BldC Oximetry 96 % 09/12/2015 10:22am Weight 202.00 lb Heart Rate 83 /min BP Systolic Sitting 113 mmHg BP Diastolic Sitting 76 mmHg Body Temperature 97.8 F O2 % BldC Oximetry 97 % 08/05/2015 1:06pm Weight 201.00 lb Heart Rate 90 /min BP Systolic Sitting 148 mmHg BP Diastolic Sitting 95 mmHg Body Temperature 97.9 F 05/21/2015 10:25am Heart Rate 71 /min BP Systolic 116 mmHg BP Diastolic 78 mmHg 05/14/2015 10:53am Weight 214.00 lb Heart Rate 85 /min BP Systolic Sitting 150 mmHg BP Diastolic Sitting 90 mmHg Body Temperature 98.3 F 04/01/2015 10:10am Weight 223.00 lb Heart Rate 87 /min BP Systolic Sitting 120 mmHg BP Diastolic Sitting 85 mmHg 02/20/2015 9:48am Weight 218.50 lb Heart Rate 81 /min BP Systolic Sitting 118 mmHg BP Diastolic Sitting 74 mmHg Respiratory Rate 16 /min Body Temperature 97.5 F O2 % BldC Oximetry 96 % 01/30/2015 2:49pm Weight 216.25 lb Heart Rate 80 /min BP Systolic Sitting 100 mmHg BP Diastolic Sitting 70 mmHg Body Temperature 98.7 F 09/26/2014 10:53am Weight 209.00 lb Heart Rate 74 /min BP Systolic Sitting 122 mmHg BP Diastolic Sitting 76 mmHg 08/02/2014 1:58pm Weight 210.00 lb Heart Rate 72 /min BP Systolic Sitting 124 mmHg BP Diastolic Sitting 80 mmHg 03/12/2014 1:14pm Height 58 inches 4'10" Weight 196.00 lb Heart Rate 76 /min BP Systolic Sitting 113 mmHg BP Diastolic Sitting 85 mmHg Body Temperature 98.1 F BMI (Body Mass Index) 41.0 kg/m2 01/30/2014 1:47pm Height 58 inches 4'10" Weight 195.00 lb Heart Rate 80 /min BP Systolic Sitting 105 mmHg BP Diastolic Sitting 68 mmHg Body Temperature 98.4 F BMI (Body Mass Index) 40.8 kg/m2 09/14/2013 11:49am Weight 193.50 lb Heart Rate 80 /min BP Systolic Sitting 110 mmHg BP Diastolic Sitting 78 mmHg 08/07/2013 10:41am Weight 197.00 lb Heart Rate 85 /min BP Systolic Sitting 118 mmHg BP Diastolic Sitting 78 mmHg 07/05/2013 2:25pm Weight 202.50 lb Heart Rate 83 /min BP Systolic Sitting 112 mmHg BP Diastolic Sitting 76 mmHg 06/06/2013 1:52pm Weight 204.50 lb Heart Rate 87 /min BP Systolic Sitting 124 mmHg BP Diastolic Sitting 91 mmHg 03/08/2013 1:14pm Weight 213.00 lb Heart Rate 70 /min BP Systolic Sitting 110 mmHg BP Diastolic Sitting 82 mmHg 02/27/2013 10:34am Height 58.75 inches 4'10.75" Weight 214.00 lb Heart Rate 71 /min BP Systolic Sitting 111 mmHg BP Diastolic Sitting 70 mmHg BMI (Body Mass Index) 43.6 kg/m2 01/25/2013 9:57am Height 58.75 inches 4'10.75" Weight 216.00 lb Heart Rate 76 /min BP Systolic Sitting 118 mmHg BP Diastolic Sitting 80 mmHg BMI (Body Mass Index) 44.0 kg/m2 12/27/2012 11:59am Height 58.75 inches 4'10.75" Weight 214.50 lb Heart Rate 80 /min BP Systolic Sitting 120 mmHg BP Diastolic Sitting 82 mmHg BMI (Body Mass Index) 43.7 kg/m2 11/03/2012 9:53am Height 58.75 inches 4'10.75" Weight 211.00 lb Heart Rate 76 /min BP Systolic Sitting 118 mmHg BP Diastolic Sitting 78 mmHg BMI (Body Mass Index) 43.0 kg/m2 10/20/2012 10:38am Height 58.75 inches 4'10.75" Weight 212.00 lb Heart Rate 78 /min BP Systolic Sitting 118 mmHg BP Diastolic Sitting 76 mmHg Body Temperature 97.0 F BMI (Body Mass Index) 43.2 kg/m2 09/29/2012 11:49am Height 58.75 inches 4'10.75" Weight 219.00 lb Heart Rate 80 /min BP Systolic Sitting 114 mmHg BP Diastolic Sitting 68 mmHg O2 % BldC Oximetry 95 % Room air BMI (Body Mass Index) 44.6 kg/m2 09/01/2012 9:04am Height 58.75 inches 4'10.75" Weight 213.00 lb Heart Rate 84 /min BP Systolic Sitting 108 mmHg BP Diastolic Sitting 76 mmHg Body Temperature 97.3 F BMI (Body Mass Index) 43.4 kg/m2 08/16/2012 9:39am Height 58.75 inches 4'10.75" Weight 214.00 lb Heart Rate 88 /min BP Systolic Sitting 122 mmHg BP Diastolic Sitting 86 mmHg BMI (Body Mass Index) 43.6 kg/m2 08/02/2012 9:57am Height 58.75 inches 4'10.75" Weight 213.00 lb Heart Rate 98 /min BP Systolic Sitting 110 mmHg BP Diastolic Sitting 70 mmHg Body Temperature 97.4 F BMI (Body Mass Index) 43.4 kg/m2 07/26/2012 10:21am Height 58.75 inches 4'10.75" Weight 210.00 lb Heart Rate 100 /min BP Systolic Sitting 110 mmHg BP Diastolic Sitting 68 mmHg BMI (Body Mass Index) 42.8 kg/m2 06/30/2012 3:05pm Height 58.75 inches 4'10.75" Weight 210.00 lb Heart Rate 76 /min BP Systolic Sitting 108 mmHg BP Diastolic Sitting 80 mmHg BMI (Body Mass Index) 42.8 kg/m2 06/09/2012 9:49am Height 58.75 inches 4'10.75" Weight 214.00 lb Heart Rate 64 /min BP Systolic Sitting 118 mmHg BP Diastolic Sitting 68 mmHg BMI (Body Mass Index) 43.6 kg/m2 05/26/2012 9:03am Height 58.75 inches 4'10.75" Weight 215.00 lb Heart Rate 68 /min BP Systolic Sitting 110 mmHg BP Diastolic Sitting 70 mmHg BMI (Body Mass Index) 43.8 kg/m2 04/25/2012 9:12am Height 58.75 inches 4'10.75" Weight 217.00 lb Heart Rate 62 /min BP Systolic Sitting 104 mmHg BP Diastolic Sitting 70 mmHg BMI (Body Mass Index) 44.2 kg/m2 03/29/2012 9:29am Height 58.75 inches 4'10.75" Weight 234.00 lb Heart Rate 80 /min BP Systolic Sitting 104 mmHg BP Diastolic Sitting 70 mmHg BMI (Body Mass Index) 47.7 kg/m2 03/24/2012 8:43am Height 58.75 inches 4'10.75" Weight 234.00 lb Heart Rate 60 /min BP Systolic Sitting 114 mmHg BP Diastolic Sitting 80 mmHg BMI (Body Mass Index) 47.7 kg/m2 Results Test Date Facility Test Result H/L Range Note Urinalysis Profile 05/19/2019 [facility] Urine Color Yellow [address] [place] [address] [phone] Urine Appearance Clear Urine Specific Tuttle 1.016 N 1.010-1.030 Urine pH 5.0 N 5-9 Urine Urobilinogen Negative Negative Urine Ketones Negative Negative Urine Protein Negative Negative Urine Leukocytes Negative Negative Urine Blood Negative Negative Urine Nitrite Negative Negative Urine Bilirubin Negative Negative Urine Glucose Negative Negative Urine Culture And 05/19/2019 [facility] Urine Culture SEE RESULT [address] [place] [address] [phone] Inr/Protime 05/19/2019 [facility] Inr 0.94 N 0.82- [address] 1[address]09 [place] [address] [phone] Laboratory test 05/19/2019 [facility] Partial 30.9 seconds N 26.0- finding [address] Thrombo Time 38.0 [place] [address] PTT [phone] Comp Metabolic 05/19/2019 [facility] Sodium 141 mmol/L N 135- [address] [place] [address] [phone] Potassium 4.0 mmol/L N 3.5-5.0 Chloride 104 mmol/L N 101-111 Co2 Carbon Dioxide 32 mmol/L N 22-32 Anion Gap 5 mmol/L N 2-11 Glucose 94 mg/dL N 70-100 Blood Urea Nitrogen 14 mg/dL N 6-24 Creatinine 0.50 mg/dL Low 0.51-0.95 BUN/Creatinine Ratio 28.0 High 8-20 Calcium 9.4 mg/dL N 8.6-10.3 Total Protein 7.0 g/dL N 6.4-8.9 Albumin 4.1 g/dL N 3.2-5.2 Globulin 2.9 g/dL N 2-4 Albumin/Globulin Ratio 1.4 N 1-3 Total Bilirubin 0.20 mg/dL N 0.2-1.0 Alkaline Phosphatase 73 U/L N 34-104 Alt 10 U/L N 7-52 Ast 13 U/L N 13-39 Egfr Non- 128.6 >60 Egfr 155.6 >60 3 CBC Auto 05/19/2019 [facility] White Blood 12.2 10^3/uL High 3.5-10.[address] [place] [address] [phone] Red Blood Count 4.61 10^6/uL N 3.70-4.87 Hemoglobin 11.9 g/dL Low 12.0-16.0 Hematocrit 37 % N 35-47 Mean Corpuscular Volume 81 fL N 80-97 Mean Corpuscular Hemoglobin 26 pg Low 27-31 Mean Corpuscular HGB Conc 32 g/dL N 31-36 Red Cell Distribution Width 14 % N 10-15 Platelet Count Platelets clumpe <SEE NOTE> 10^3/uL High 150-450 4 Abs Neutrophils 8.3 10^3/uL High 1.5-7.7 Abs Lymphocytes 2.8 10^3/uL N 1.0-4.8 Abs Monocytes 0.7 10^3/uL N 0-0.8 Abs Eosinophils 0.3 10^3/uL N 0-0.6 Abs Basophils 0.1 10^3/uL N 0-0.2 Abs Nucleated RBC 0.0 10^3/uL Granulocyte % 67.8 % Lymphocyte % 23.2 % Monocyte % 5.7 % Eosinophil % 2.4 % Basophil % 0.9 % Nucleated Red Blood Cells % 0.1 Type & Screen 05/19/2019 [facility] Patient Blood Type O Positive [address] [place] [address] [phone] Antibody Screen NEGATIVE Laboratory test 07/28/2018 [facility] Hemoglobin A1c 7.4 High 5-7 finding Lipid Profile 07/26/2018 [facility] Triglycerides 309 mg/dL 5 (Trig/Chol/HDL) [address] [place] [phone] Cholesterol 138 mg/dL 6 HDL Cholesterol 25.3 mg/dL 7 LDL Cholesterol 51 mg/dL 8 Laboratory test 04/26/2018 [facility] Hemoglobin A1c 7.2 High 5-7 finding Lipid Profile 02/10/2018 [facility] Triglycerides 370 mg/dL 9, 10 (Trig/Chol/HDL) [address] [place] [address] [phone] Cholesterol 160 mg/dL 11 HDL Cholesterol 27.4 mg/dL 12 LDL Cholesterol 59 mg/dL 13 Comp Metabolic Panel 02/10/2018 [facility] Sodium 137 mmol/L N 133-145 [address] [place] [address] [phone] Potassium 3.9 mmol/L N 3.5-5.0 Chloride 102 mmol/L N 101-111 Co2 Carbon Dioxide 26 mmol/L N 22-32 Anion Gap 9 mmol/L N 2-11 Glucose 212 mg/dL High 70-100 Blood Urea Nitrogen 20 mg/dL N 6-24 Creatinine 0.62 mg/dL N 0.51-0.95 BUN/Creatinine Ratio 32.3 High 8-20 Calcium 9.5 mg/dL N 8.6-10.3 Total Protein 7.4 g/dL N 6.4-8.9 Albumin 4.3 g/dL N 3.2-5.2 Globulin 3.1 g/dL N 2-4 Albumin/Globulin Ratio 1.4 N 1-3 Total Bilirubin 0.40 mg/dL N 0.2-1.0 Alkaline Phosphatase 69 U/L N 34-104 Alt 25 U/L N 7-52 Ast 23 U/L N 13-39 Egfr Non- 100.7 >60 Egfr 129.5 >60 14 Laboratory test 02/10/2018 [facility] Hemoglobin A1c 8.2 % High 4.0-5.6 [address] (Glyco HGB) [place] [address] [phone] Laboratory test 01/13/2018 [facility] Hemoglobin A1c 7.6 High 5-7 finding Laboratory test 11/19/2017 [facility] Hemoglobin A1c 8.7 High 5-7 finding Laboratory test 07/14/2017 [facility] Magnesium 1.7 Low 1.9- 2.[address] mg/[place] [address] [phone] Calcium Ionized 4.85 mg/dL N 4.65-5.28 Basic Metabolic Panel 07/14/2017 [facility] Sodium 135 mmol/L N 133-[address] [place] [address] [phone] Potassium 4.0 mmol/L N 3.5-5.0 Chloride 101 mmol/L N 101-111 Co2 Carbon Dioxide 28 mmol/L N 22-32 Anion Gap 6 mmol/L N 2-11 Glucose 199 mg/dL High 70-100 Blood Urea Nitrogen 12 mg/dL N 6-24 Creatinine 0.60 mg/dL N 0.51-0.95 BUN/Creatinine Ratio 20.0 N 8-20 Calcium 9.6 mg/dL N 8.6-10.3 Egfr Non- 104.6 N >60 Egfr 134.5 N >60 16 Laboratory test 06/14/2017 [facility] Hemoglobin A1c 6.9 % High Less [address] (Glyco HGB) than 6.0 [place] [address] [phone] Lipid Profile 06/14/2017 [facility] Triglycerides 369 N 18 (Trig/Chol/HDL) [address] mg/dL [place], [place] [id number] [phone] Cholesterol 113 mg/dL N 19 HDL Cholesterol 28.2 mg/dL N 20 LDL Cholesterol 11 mg/dL N 21 Urine Microalbumin 06/14/2017 [facility] Urine Creatinine 95.45 mg/dL N Random [address] [place] [address] [phone] Ur Microalbumin (mg/L) 27.4 mg/L N Urine Microalbumin/Creatinine 28.7 ug/mg N <31 Urinalysis Profile 03/17/2017 [facility] Urine Color Yellow [address] [place] [address] [phone] Urine Appearance Cloudy N Urine Specific Tuttle 1.013 N 1.010-1.030 Urine pH 5.0 N 5-9 Urine Urobilinogen Negative N Negative Urine Ketones Negative N Negative Urine Protein Negative N Negative Urine Leukocytes 1+ Abnormal Negative Urine Blood Negative N Negative Urine Nitrite Negative N Negative Urine Bilirubin Negative N Negative Urine Glucose Negative N Negative Urine White Blood Cell 1+(6-10/hpf) Abnormal Absent Urine Red Blood Cell Trace(0-2/hpf) N Absent Urine Bacteria Absent N Absent Urine Squamous Epithelial Cell Present Abnormal Absent Comp Metabolic Panel 03/17/2017 [facility] Sodium 137 mmol/L N 133-[address] [place] [address] [phone] Potassium 3.4 mmol/L Low 3.5-5.0 Chloride 100 mmol/L Low 101-111 Co2 Carbon Dioxide 28 mmol/L N 22-32 Anion Gap 9 mmol/L N 2-11 Glucose 123 mg/dL High 70-100 Blood Urea Nitrogen 9 mg/dL N 6-24 Creatinine 0.68 mg/dL N 0.51-0.95 BUN/Creatinine Ratio 13.2 N 8-20 Calcium 9.6 mg/dL N 8.6-10.3 Total Protein 8.2 g/dL N 6.4-8.9 Albumin 4.6 g/dL N 3.2-5.2 Globulin 3.6 g/dL N 2-4 Albumin/Globulin Ratio 1.3 N 1-3 Total Bilirubin 0.30 mg/dL N 0.2-1.0 Alkaline Phosphatase 111 U/L High 34-104 Alt 25 U/L N 7-52 Ast 21 U/L N 13-39 Egfr Non- 90.9 N >60 Egfr 116.9 N >60 22 Laboratory test 03/17/2017 [facility] Point of 113 mg/dL High 74-106 [address] [place] [address] Glucose [phone] Urine Culture And 03/17/2017 [facility] Urine SEE RESULT [address] [place] [address] [phone] Laboratory test 03/17/2017 [facility] Lipase 26 U/L N 11.0- 82.[address] [place], [place] [id number] [phone] C Reactive Protein 2.92 mg/L N < 5.00 25 Lactic Acid 2.3 mmol/L High 0.5-2.0 26 CBC Auto 03/17/2017 [facility] White Blood 11.1 10^3/uL High 3.5-10.[address] [place] [address] [phone] Red Blood Count 4.94 10^6/uL N 4.0-5.4 Hemoglobin 13.9 g/dL N 12.0-16.0 Hematocrit 42 % N 35-47 Mean Corpuscular Volume 86 fL N 80-97 Mean Corpuscular Hemoglobin 28 pg N 27-31 Mean Corpuscular HGB Conc 33 g/dL N 31-36 Red Cell Distribution Width 15 % N 10.5-15 Platelet Count 182 10^3/uL N 150-450 Mean Platelet Volume 10 um3 N 7.4-10.4 Abs Neutrophils 7.0 10^3/uL N 1.5-7.7 Abs Lymphocytes 3.1 10^3/uL N 1.0-4.8 Abs Monocytes 0.8 10^3/uL N 0-0.8 Abs Eosinophils 0.1 10^3/uL N 0-0.6 Abs Basophils 0.1 10^3/uL N 0-0.2 Abs Nucleated RBC 0.01 10^3/uL N Granulocyte % 63.0 % N 38-83 Lymphocyte % 27.9 % N 25-47 Monocyte % 7.0 % N 1-9 Eosinophil % 1.2 % N 0-6 Basophil % 0.9 % N 0-2 Nucleated Red Blood Cells % 0.1 N Inr/Protime 03/17/2017 [facility] Inr 0.82 Low 0.89-1.[address] [place] [address] [phone] Laboratory 03/17/2017 [facility] Partial Thrombo 28.2 N 26.0- 36.[address] [place] [address] [phone] Lipid Profile 02/08/2017 [facility] Triglycerides 207 mg/dL N 27 (Trig/Chol/HDL [address] ) [place] [address] [phone] Cholesterol 111 mg/dL N 28 HDL Cholesterol 32.1 mg/dL N 29 LDL Cholesterol 38 mg/dL N 30 Laboratory test 02/08/2017 [facility] Hemoglobin A1c 7.3 % High Less than 31 finding (Glyco HGB) 6.0 [place] [address] [phone] Comp Metabolic 07/31/2016 [facility] Sodium 135 N 133-[address] mmol/[place] [address] [phone] Potassium 4.0 mmol/L N 3.5-5.0 Chloride 103 mmol/L N 101-111 Co2 Carbon Dioxide 27 mmol/L N 22-32 Anion Gap 5 mmol/L N 2-11 Glucose 158 mg/dL High 70-100 Blood Urea Nitrogen 10 mg/dL N 6-24 Creatinine 0.65 mg/dL N 0.51-0.95 BUN/Creatinine Ratio 15.4 N 8-20 Calcium 9.5 mg/dL N 8.6-10.3 Total Protein 7.0 g/dL N 6.4-8.9 Albumin 4.2 g/dL N 3.2-5.2 Globulin 2.8 g/dL N 2-4 Albumin/Globulin Ratio 1.5 N 1-3 Total Bilirubin 0.40 mg/dL N 0.2-1.0 Alkaline Phosphatase 90 U/L N 34-104 Alt 19 U/L N 7-52 Ast 17 U/L N 13-39 Egfr Non- 95.7 N >60 Egfr 123.1 N >60 32 Laboratory test 06/30/2016 [facility] Hemoglobin A1c 6.1 5-7 finding Laboratory test 02/04/2016 [facility] Hepatitis C Nonreactive N Nonreactive finding [address] [place] [address] [phone] HIV 1/2 AB 02/04/2016 [facility] HIV 1 2 Nonreactive N Nonreactive [address] [place] [address] [phone] Liver Function 02/04/2016 [facility] Total Protein 6.9 g/dL N 6.4-8.[address] [place] [address] [phone] Albumin 4.3 g/dL N 3.2-5.2 Globulin 2.6 g/dL N 2-4 Albumin/Globulin Ratio 1.7 N 1-3 Total Bilirubin 0.20 mg/dL N 0.2-1.0 Direct Bilirubin 0.10 mg/dL N 0.03-0.18 Indirect Bilirubin 0.1 mg/dL Low 0.3-1.0 Alkaline Phosphatase 89 U/L N 34-104 Alt 16 U/L N 7-52 Ast 14 U/L N 13-39 Laboratory test 02/04/2016 [facility] Potassium 4.2 mmol/L N 3.5-5.[address] [place] [address] [phone] Urine 01/21/2016 [facility] Ur Microalbumin 44.0 mg/L N Microalbumin [address] (mg/L) [place] [address] [phone] Urine Creatinine 82.01 mg/dL N Urine Microalbumin/Creatinine 53.6 ug/mg High <31 Laboratory test 12/30/2015 [facility] Hemoglobin A1c 6.0 5-7 finding Oxycodone,Urine 12/10/2015 [facility] Oxycodone Negative ng/mL N [address] [place] [address] [phone] Oxymorphone 270 ng/mL N 35 Oxycodone Interpretation Positive. N 36 THC Confirmation 12/10/2015 [facility] Urine Carboxy 280 ng/mL N [address] [place] [place] [address] [phone] Urine THC Interpretation Positive. N 38 Drug Abuse 20 12/10/2015 [facility] Urine Amphetamine Negative ng/mL N [address] [place] [address] [phone] Urine Barbiturates Negative ng/mL N 40 Urine Benzodiazepines Negative ng/mL N 41 Urine Cocaine Negative ng/mL N 42 Urine Methadone Negative ng/mL N 43 Urine Opiates Negative ng/mL N 44 Urine Phencyclidine Negative ng/mL N Cutoff: 25 Urine Tetrahydrocannabinol Presumptive Posi <SEE NOTE> ng/mL N Cutoff: 20 45 Urine Oxycodone Presumptive Posi <SEE NOTE> ng/mL N 46 Comp Metabolic Panel 08/02/2015 [facility] Sodium 136 mmol/L N 133-[address] [place] [address] [phone] Potassium 4.7 mmol/L N 3.5-5.0 Chloride 101 mmol/L N 101-111 Co2 Carbon Dioxide 28 mmol/L N 22-32 Anion Gap 7 mmol/L N 2-11 Glucose 151 mg/dL High 70-100 Blood Urea Nitrogen 10 mg/dL N 6-24 Creatinine 0.64 mg/dL N 0.51-0.95 BUN/Creatinine Ratio 15.6 N 8-20 Calcium 9.2 mg/dL N 8.6-10.3 Total Protein 7.2 g/dL N 6.4-8.9 Albumin 4.4 g/dL N 3.2-5.2 Globulin 2.8 g/dL N 2-4 Albumin/Globulin Ratio 1.6 N 1-3 Total Bilirubin 0.30 mg/dL N 0.2-1.0 Alkaline Phosphatase 69 U/L N 34-104 Alt 13 U/L N 7-52 Ast 15 U/L N 13-39 Egfr Non- 97.8 N >60 Egfr 125.8 N >60 47 Lipid Profile 08/02/2015 [facility] Triglycerides 72 mg/dL N 48 (Trig/Chol/HDL) [address] [place] [address] [phone] Cholesterol 111 mg/dL N 49 HDL Cholesterol 34.0 mg/dL N 50 LDL Cholesterol 63 mg/dL N 51 Laboratory test 08/02/2015 [facility] Hemoglobin A1c 6.1 % High Less than [address] (Glyco HGB) 6.0 [place] [address] [phone] Laboratory test 01/30/2015 [facility] Hemoglobin A1c 6.2 5-7 finding Comp Metabolic 01/18/2015 [facility] Sodium 136 N 133-145 [address] mmol/[place] [address] [phone] Potassium 4.2 mmol/L N 3.5-5.0 Chloride 102 mmol/L N 101-111 Co2 Carbon Dioxide 27 mmol/L N 22-32 Anion Gap 7 mmol/L N 2-11 Glucose 126 mg/dL High 70-100 Blood Urea Nitrogen 10 mg/dL N 6-24 Creatinine 0.68 mg/dL N 0.51-0.95 BUN/Creatinine Ratio 14.7 N 8-20 Calcium 9.7 mg/dL N 8.6-10.3 Total Protein 7.4 g/dL N 6.4-8.9 Albumin 4.5 g/dL N 3.2-5.2 Globulin 2.9 g/dL N 2-4 Albumin/Globulin Ratio 1.6 N 1-3 Total Bilirubin 0.30 mg/dL N 0.2-1.0 Alkaline Phosphatase 78 U/L N 34-104 Alt 13 U/L N 7-52 Ast 14 U/L N 13-39 Egfr Non- 91.6 N >60 Egfr 117.8 N >60 54 Lipid Profile 07/27/2014 [facility] Triglycerides 98 mg/dL N 55, 56 (Trig/Chol/HDL) [address] [place] [address] [phone] Cholesterol 144 mg/dL N 57 HDL Cholesterol 27.0 mg/dL N 58 LDL Cholesterol 97 mg/dL N 59 Comp Metabolic Panel 07/27/2014 [facility] Sodium 136 mmol/L N 133-145 [address] [place] [address] [phone] Potassium 4.0 mmol/L N 3.7-5.6 Chloride 102 mmol/L N 101-111 Co2 Carbon Dioxide 28 mmol/L N 22-32 Anion Gap 6 mmol/L N 2-11 Glucose 131 mg/dL High 70-100 Blood Urea Nitrogen 12 mg/dL N 6-24 Creatinine 0.68 mg/dL N 0.51-0.95 BUN/Creatinine Ratio 17.6 N 8-20 Calcium 9.4 mg/dL N 8.6-10.3 Total Protein 7.8 g/dL N 6.4-8.9 Albumin 4.6 g/dL N 3.2-5.2 Globulin 3.2 g/dL N 2-4 Albumin/Globulin Ratio 1.4 N 1-3 Total Bilirubin 0.30 mg/dL N 0.2-1.0 Alkaline Phosphatase 83 U/L N 34-104 Alt 16 U/L N 7-52 Ast 19 U/L N 13-39 Egfr Non- 91.6 N >60 Egfr 117.8 N >60 60 Urine Microalbumin 07/27/2014 [facility] Ur Microalbumin 6.0 mg/ dL N <30 [address] (mg/L) [place] [address] [phone] Urine Creatinine 70.22 mg/dL N Urine Microalbumin/Creatinine 8.5 N Less Than 31 Laboratory test 07/27/2014 [facility] Hemoglobin A1c 6.4 % High Less than [address] 6[address]0 [place] [address] [phone] Ua Routine 03/12/2014 [facility] Ua Specific 1.005 Tuttle Ua PH 5 Ua Color yellow Ua Appera clear Ua WBC neg Ua Protein neg Ua Glucose neg Ua Ketones neg Ua Bilirubin neg Ua Urobilinogen neg Ua Nitrite neg Ua Occult Blood neg Vitamin D, 25 01/30/2014 [facility] 25-Hydroxy Vitamin 4.8 ng/ mL Hydroxy [address] D2 [place] [address] [phone] 25-Hydroxy Vitamin D3 35 ng/mL 25-Hydroxy Vitamin D Total 40 ng/mL 63 Basic Metabolic Panel 01/30/2014 [facility] Sodium 136 mmol/L 133-[address] [place] [address] [phone] Potassium 4.2 mmol/L 3.7-5.6 Chloride 100 mmol/L Low 101-111 Co2 Carbon Dioxide 27 mmol/L 22-32 Anion Gap 9 mmol/L 2-11 Glucose 87 mg/dL 70-100 Blood Urea Nitrogen 8 mg/dL 6-24 Creatinine 0.68 mg/dL 0.51-0.95 BUN/Creatinine Ratio 11.8 8-20 Calcium 9.3 mg/dL 8.6-10.3 Egfr Non- 92.0 >60 Egfr 118.3 >60 64 Urine Microalbumin 01/30/2014 [facility] Ur Microalbumin 12.0 mg /dL <30 65 Random [address] [facility] (mg/L) [place] [address] [phone] Urine Creatinine 35.77 mg/dL Urine Microalbumin/Creatinine 33.5 High Less Than 31 Laboratory test 01/30/2014 [facility] Hemoglobin A1c 5.5 5-7 finding Comp Metabolic Panel 08/07/2013 [facility] Sodium 135 mmol/L 133-145 [address] [place] [address] [phone] Potassium 4.0 mmol/L 3.5-5.0 Chloride 99 mmol/L Low 101-111 Co2 Carbon Dioxide 28.0 mmol/L 22-32 Anion Gap 8.0 mmol/L 2-11 Glucose 126 mg/dL High 70-100 Blood Urea Nitrogen 7 mg/dL 6-24 Creatinine 0.70 mg/dL 0.50-1.40 BUN/Creatinine Ratio 10.0 8-20 Calcium 9.7 mg/dL 8.1-9.9 Total Protein 7.0 g/dL 6.2-8.1 Albumin 4.3 g/dL 3.6-5.4 Globulin 2.7 g/dL 2-4 Albumin/Globulin Ratio 1.6 1-3 Total Bilirubin 0.5 mg/dL 0.4-1.5 Alkaline Phosphatase 62 U/L 30-110 Alt 16 U/L 14-54 Ast 21 U/L 12-42 Egfr Non- 88.9 >60 Egfr 114.4 >60 66 Lipid Profile 08/07/2013 [facility] Triglycerides 196 mg/dL 40-200 (Trig/Chol/HDL) [address] [place] [address] [phone] Cholesterol 152 mg/dL Less than 200 HDL Cholesterol 31 mg/dL Low 40-60 67 Cholesterol/HDL Ratio 4.9 Average High 1-4.44 LDL Cholesterol 81.8 Less Than 100 68 Drug Abuse 20 08/07/2013 [facility] Urine Amphetamine Negative ng/mL 69 Urine [address] [place] [address] [phone] Urine Barbiturates Negative ng/mL 70 Urine Benzodiazepines Negative ng/mL 71 Urine Cocaine Negative ng/mL 72 Urine Methadone Negative ng/mL 73 Urine Opiates Negative ng/mL 74 Urine Phencyclidine Negative ng/mL Cutoff: 25 Urine Propoxyphene Negative ng/mL 75 Urine Tetrahydrocannabinol Presumptive Posi <SEE NOTE> ng/mL Cutoff: 20 76 Creatinine 88.8 mg/dL Specific Tuttle 1.013 pH 7.0 Oxidants Negative 77 Urine Opiates Screen Negative 78 Urine Codeine Confirmation Negative ng/mL 79 Urine Hydrocodone Confirm Negative ng/mL 80 Urine Hydromorphone Confirm Negative ng/mL 81 Urine Morphine Confirm Negative ng/mL 82 Urine Oxycodone Confirm 993 ng/mL 83 Urine Opiates Interpretation See Comment 84 THC Confirmation 08/07/2013 [facility] Urine THC Presumptive Cutoff: 20 [address] Screen Posi <SEE NOTE> [place] [address] [phone] Urine Carboxy THC Confirm 226 ng/mL Cutoff: 3 Urine THC Interpretation Positive. 86 Laboratory test 08/07/2013 [facility] Hemoglobin A1c 5.7 5-7 finding Vitamin D, 25 06/06/2013 [facility] 25-Hydroxy Vitamin 31 ng/mL Hydroxy [address] D[address] [place] [address] [phone] 25-Hydroxy Vitamin D3 14 ng/mL 25-Hydroxy Vitamin D Total 45 ng/mL 87 Pthi 04/13/2013 [facility] PTH Intact 2.5 pmol/L 1.3-9.[address] [place] [address] [phone] Calcium (PTH Intact) 9.5 mg/dL 8.1-9.9 Vitamin D, 25 04/13/2013 [facility] 25-Hydroxy Vitamin <4.0 ng/ mL Hydroxy [address] D[address] [place] [address] [phone] 25-Hydroxy Vitamin D3 20 ng/mL 25-Hydroxy Vitamin D Total 20 ng/mL Abnormal 88 Laboratory test 03/08/2013 [facility] Cytology RUN DATE: [address] 03/09/ <[place] [address] NOTE> [phone] Liver Function 02/27/2013 [facility] Total Protein 7.8 g/dL 6.2-8. Panel [address] [place] [address] [phone] Albumin 4.1 g/dL 3.6-5.4 Globulin 3.7 g/dL 2-4 Albumin/Globulin Ratio 1.1 1-3 Total Bilirubin 0.4 mg/dL 0.4-1.5 Direct Bilirubin < 0.1 mg/dL Low 0.1-0.5 Indirect Bilirubin (SEE NOTE) mg/dL 0.3-1.0 90 Alkaline Phosphatase 80 U/L 30-110 Alt 17 U/L 14-54 Ast 24 U/L 12-42 Drug Abuse 20 02/27/2013 [facility] Urine Amphetamine Negative ng/mL 91 Urine [address] [place] [address] [phone] Urine Barbiturates Negative ng/mL 92 Urine Benzodiazepines Negative ng/mL 93 Urine Cocaine Negative ng/mL 94 Urine Methadone Negative ng/mL 95 Urine Opiates Negative ng/mL 96 Urine Phencyclidine Negative ng/mL Cutoff: 25 Urine Propoxyphene Negative ng/mL 97 Urine Tetrahydrocannabinol Negative ng/mL Cutoff: 20 98 Creatinine 16.9 mg/dL 99 Specific Tuttle 1.004 pH 6.3 Oxidants Negative 100 Urine Opiates Screen Negative 101 Urine Codeine Confirmation Negative ng/mL 102 Urine Hydrocodone Confirm Negative ng/mL 103 Urine Hydromorphone Confirm Negative ng/mL 104 Urine Morphine Confirm Negative ng/mL 105 Urine Oxycodone Confirm 481 ng/mL 106 Urine Opiates Interpretation See Comment 107 Lipid Profile 01/25/2013 [facility] Triglycerides 342 mg/dL High 40-200 (Trig/Chol/HDL) [address] [place] [address] [phone] Cholesterol 187 mg/dL Less than 200 HDL Cholesterol 34 mg/dL Low 40-60 108 Cholesterol/HDL Ratio 5.5 Average High 1-4.44 LDL Cholesterol 84.6 mg/dL Less Than 100 109 Comp Metabolic Panel 01/25/2013 [facility] Sodium 137 mmol/L 133-145 [address] [place] [address] [phone] Potassium 4.1 mmol/L 3.5-5.0 Chloride 100 mmol/L Low 101-111 Co2 Carbon Dioxide 28.0 mmol/L 22-32 Anion Gap 9.0 mmol/L 2-11 Glucose 96 mg/dL 70-100 Blood Urea Nitrogen 9 mg/dL 6-24 Creatinine 0.60 mg/dL 0.50-1.40 BUN/Creatinine Ratio 15.0 8-20 Calcium 9.2 mg/dL 8.1-9.9 Total Protein 7.1 g/dL 6.2-8.1 Albumin 4.0 g/dL 3.6-5.4 Globulin 3.1 g/dL 2-4 Albumin/Globulin Ratio 1.3 1-3 Total Bilirubin 0.4 mg/dL 0.4-1.5 Alkaline Phosphatase 86 U/L 30-110 Alt 16 U/L 14-54 Ast 19 U/L 12-42 Egfr Non- 106.7 >60 Egfr 137.2 >60 110 Urine Microalbumin 01/25/2013 [facility] Ur Microalbumin 4.0 mg/ L [address] (Mg/L) [place] [address] [phone] Urine Creatinine 33.0 mg/dL Urine Microalbumin/Creatinine 12.1 ug/mg Less Than 31 Drug Abuse 01/25/2013 [facility] Urine Amphetamine Negative ng/ mL 112 [address] [place] [address] [phone] Urine Barbiturates Negative ng/mL 113 Urine Benzodiazepines Negative ng/mL 114 Urine Cocaine Negative ng/mL 115 Urine Methadone Negative ng/mL 116 Urine Opiates Negative ng/mL 117 Urine Phencyclidine Negative ng/mL Cutoff: 25 Urine Propoxyphene Negative ng/mL 118 Urine Tetrahydrocannabinol Negative ng/mL Cutoff: 20 119 Creatinine 32.3 mg/dL Specific Tuttle 1.008 pH 6.9 Oxidants Negative 120 Urine Opiates Screen Negative 121 Urine Codeine Confirmation Negative ng/mL 122 Urine Hydrocodone Confirm Negative ng/mL 123 Urine Hydromorphone Confirm Negative ng/mL 124 Urine Morphine Confirm Negative ng/mL 125 Urine Oxycodone Confirm 233 ng/mL 126 Urine Opiates Interpretation See Comment 127 CBC Auto 01/25/2013 [facility] White Blood 11.2 10^3/uL High 4.8-10.[address] [place] [address] [phone] Red Blood Count 4.98 10^6/uL 4.0-5.4 Hemoglobin 13.1 g/dL 12.0-16.0 Hematocrit 40 % 35-47 Mean Corpuscular Volume 80 fL 80-97 Mean Corpuscular Hemoglobin 26 pg Low 27-31 Mean Corpuscular HGB Conc 33 g/dL 31-36 Red Cell Distribution Width 14 % 10.5-15 Platelet Count 192 10^3/uL 150-450 Mean Platelet Volume 10 um3 7.4-10.4 Abs Neutrophils 6.8 10^3/uL 1.5-7.7 Abs Lymphocytes 3.4 10^3/uL 1.0-4.8 Abs Monocytes 0.7 10^3/uL 0-0.8 Abs Eosinophils 0.2 10^3/uL 0-0.6 Abs Basophils 0.1 10^3/uL 0-0.2 Abs Nucleated RBC 0.02 10^3/uL Granulocyte % 60.8 % 38-83 Lymphocyte % 30.1 % 25-47 Monocyte % 6.4 % 1-9 Eosinophil % 2.0 % 0-6 Basophil % 0.7 % 0-2 Nucleated Red Blood Cells % 0.2 Laboratory test finding 01/25/2013 [facility] Hemoglobin A1c 5.6 5-7 Ua Routine 10/20/2012 [facility] Ua Specific Tuttle 1.010 Ua PH 5 Ua Color yellow Ua Appera slightly cloudy Ua WBC trace Ua Protein trace Ua Glucose negative Ua Ketones negative Ua Bilirubin negative Ua Urobilinogen negative Ua Nitrite negative Ua Occult Blood trace Urine Culture And 10/20/2012 [facility] Urine Culture (SEE NOTE ) [address] [place] [address] [phone] CBC Auto Diff 10/02/2012 [facility] White Blood 9.4 10^3/uL 4.8-[address] Count 0.8 [place] [address] [phone] Red Blood Count 4.80 10^6/uL 4.0-5.4 Hemoglobin 12.5 g/dL 12.0-16.0 Hematocrit 38 % 35-47 Mean Corpuscular Volume 79 fL Low 80-97 Mean Corpuscular Hemoglobin 26 pg Low 27-31 Mean Corpuscular HGB Conc 33 g/dL 31-36 Red Cell Distribution Width 15 % 10.5-15 Platelet Count 173 10^3/uL 150-450 Mean Platelet Volume 9 um3 7.4-10.4 Abs Neutrophils 5.2 10^3/uL 1.5-7.7 Abs Lymphocytes 3.3 10^3/uL 1.0-4.8 Abs Monocytes 0.6 10^3/uL 0-0.8 Abs Eosinophils 0.2 10^3/uL 0-0.6 Abs Basophils 0.1 10^3/uL 0-0.2 Abs Nucleated RBC 0.01 10^3/uL Granulocyte % 55.7 % 38-83 Lymphocyte % 35.0 % 25-47 Monocyte % 6.8 % 1-9 Eosinophil % 1.6 % 0-6 Basophil % 0.9 % 0-2 Nucleated Red Blood Cells % 0.1 Laboratory test 10/02/2012 [facility] Uric Acid 5.9 mg/dL 2.6 -7.[address] [place] [address] [phone] Laboratory test 09/01/2012 [facility] Throat Culture (SEE [address] NOTE) [place] [address] [phone] Laboratory test 08/16/2012 [facility] Hemoglobin A1c 5.7 5-7 finding Laboratory test 06/30/2012 [facility] Potassium 4.5 3.5-5.[address] mmol/[place] [address] [phone] Laboratory test 03/29/2012 [facility] Hemoglobin A1c 8.3 High 5-7 finding Comp Metabolic 03/28/2012 [facility] Sodium 132 Low 135-[address] mmol/[place] [address] [phone] Potassium 4.1 mmol/L 3.5-5.0 Chloride 97 mmol/L Low 101-111 Co2 (Carbon Dioxide) 30.0 mmol/L 22-32 Anion Gap 5.0 mmol/L 2-11 130 Glucose 234 mg/dL High 70-100 BUN 8 mg/dL 6-24 Creatinine 0.6 mg/dL 0.50-1.40 One Over Creatinine 1.66 BUN/Creatinine Ratio 13.3 8-20 Calcium 8.8 mg/dL 8.1-9.9 Total Protein 6.7 GM/DL 6.2-8.1 Albumin 3.7 GM/DL 3.6-5.4 Globulin 3.0 GM/DL 2-4 Albumin/Globulin Ratio 1.2 1-3 Bilirubin Total 0.4 mg/dL 0.4-1.5 131 Alkaline Phosphatase 91 U/L 30-110 Alt (SGPT) 39 U/L 14-54 Ast (Sgot) 50 U/L High 12-42 eGFR Non- 107.2 > 60 eGFR 137.8 > 60 132 Lipid Profile 03/28/2012 [facility] Triglyceride 348 mg/dL High 40-200 (Trig/Chol/HDL) [address] [place] [address] [phone] Cholesterol 170 mg/dL Less Than 200 133 High Density Lipoprotein 23 mg/dL Low 40-60 134 Cholesterol/HDL Ratio 7.39 AVERAGE High 1-4.44 Low Density Lipoprotein 77 mg/dL Less Than 100 135 Drug Abuse 03/24/2012 [facility] Urine Ampetamines Negative ng/ mL () 136 20 Urine [address] [place] [address] [phone] Urine Barbiturates Negative ng/mL () 137 Urine Benzodiazepines Negative ng/mL () 138 Urine Cocaine Negative ng/mL () 139 Urine Methadone Negative ng/mL () 140 Urine Opiates Negative ng/mL () 141 Urine Phencyclidine Negative ng/mL Cutoff: 25 Urine Propoxyphene Negative ng/mL () 142 Urine Tetrahydrocannabinol Negative ng/mL Cutoff: 20 143 Urine Opiates Screen Negative () 144 Urine Codeine By GC/MS Negative ng/mL () 145 Urine Hydrocodone By GC/MS Negative ng/mL () 146 Urine Hydromophone By GC/MS Negative ng/mL () 147 Urine Morphine By GC/MS Negative ng/mL () 148 Urine Oxycodone By GC/MS Negative ng/mL () 149 Urine Opiates Interpretation Negative. () 150 1 SEE RESULT BELOW Name: JUAN FRANCISCO PAIGE : [address]: Tamia Odom MD Acct: [id number] Unit: [id number] AGE: 53 Location: [facility] Re05/19/19 SEX: F Status: REG REF SPEC: [id number] RASHAAD: 05/19/[address]: Tamia Odom MD REQ: [id number] RECD: 05/19/19 STATUS: SHAINA CH DR: Carleen Murrieta MD _ SOURCE: URINE [facility]: ORDERED: Urine Culture Procedure Result Reported Site Urine Culture Final 05/20/19- 0945 ML Organism 1 STREP GROUP B Sanders Count 25-50,000 (Moderate) CFU/ML Susceptibility testing of penicillins and other B-lactams approved by FDA for treatment of Streptococcus pyogenes (Group A Strep) and Streptococcus agalactiae (Group B Strep) is not necessary for clinical purposes and need not be done routinely, since as with vancomycin, resistant strains have not been recognized. (CLSI D364-J61;p.66) Positive isolates will be saved for one week. Please call the Microbiology Laboratory if further susceptibility testing is needed. * ML - Main Lab . END OF REPORT DEPARTMENT OF PATHOLOGY, [address] [place] [address] Hugo Camacho M.D. Director [facility] # [id number] 2 Standard intensity warfarin therapeutic range: 2.0-3.0 High intensity warfarin therapeutic range: 2.5-3.5 3 Because ethnic data is not always readily available, this report includes an eGFR for both -Americans and non- Americans. The National Kidney Disease Education Program (NKDEP) does not endorse the use of the MDRD equation for patients that are not between the ages of 18 and 70, are , have extremes of body size, muscle mass, or nutritional status, or are non- or non-. According to the National Kidney Foundation, irrespective of diagnosis, the stage of the disease is based on the level of kidney function: Stage Description GFR(mL/min/1.73 m(2)) 1 Kidney damage with normal or decreased GFR 90 2 Kidney damage with mild decrease in GFR 60-89 3 Moderate decrease in GFR 30-59 4 Severe decrease in GFR 15-29 5 Kidney failure <15 (or dialysis) 4 Platelets clumped. Unable to perform accurate count. 5 Desirable: <150 Borderline High: 150-199 High: 200-499 Very High: >500 6 Desirable: <200 Borderline High: 200-239 High: >239 7 Low: <40 Desirable: 40-60 High: >60 8 Desirable: <100 Near Optimal: 100-129 Borderline High: 130-159 High: 160-189 Very High: >189 9 FASTING 10 Desirable: <150 Borderline High: 150-199 High: 200-499 Very High: >500 11 Desirable: <200 Borderline High: 200-239 High: >239 12 Low: <40 Desirable: 40-60 High: >60 13 Desirable: <100 Near Optimal: 100-129 Borderline High: 130-159 High: 160-189 Very High: >189 14 Because ethnic data is not always readily available, this report includes an eGFR for both -Americans and non- Americans. The National Kidney Disease Education Program (NKDEP) does not endorse the use of the MDRD equation for patients that are not between the ages of 18 and 70, are , have extremes of body size, muscle mass, or nutritional status, or are non- or non-. According to the National Kidney Foundation, irrespective of diagnosis, the stage of the disease is based on the level of kidney function: Stage Description GFR(mL/min/1.73 m(2)) 1 Kidney damage with normal or decreased GFR 90 2 Kidney damage with mild decrease in GFR 60-89 3 Moderate decrease in GFR 30-59 4 Severe decrease in GFR 15-29 5 Kidney failure <15 (or dialysis) 15 Therapeutic target for the treatment of diabetes mellitus patients is <7% HBA1C, and in selective patients <6.0%. Please refer to [place] [employer] diabetic care guidelines for further information. 16 Because ethnic data is not always readily available, this report includes an eGFR for both -Americans and non- Americans. The National Kidney Disease Education Program (NKDEP) does not endorse the use of the MDRD equation for patients that are not between the ages of 18 and 70, are , have extremes of body size, muscle mass, or nutritional status, or are non- or non-. According to the National Kidney Foundation, irrespective of diagnosis, the stage of the disease is based on the level of kidney function: Stage Description GFR(mL/min/1.73 m(2)) 1 Kidney damage with normal or decreased GFR 90 2 Kidney damage with mild decrease in GFR 60-89 3 Moderate decrease in GFR 30-59 4 Severe decrease in GFR 15-29 5 Kidney failure <15 (or dialysis) 17 Therapeutic target for the treatment of diabetes Mellitus patients is <7% HBA1C, and in selective patients <6.0%.Please refer to [place] [employer] Diabetic care guidelines for further information. 18 Desirable <150 Borderline high 150-199 High 200-499 Very High >500 19 Desirable <200 Borderline high 200-239 High >239 20 Low <40 Desirable: 40-60 High: >60 21 Desirable: <100 mg/dL Near Optimal: 100-129 mg/dL Borderline High: 130-159 mg/dL High: 160-189 mg/dL Very High: >189 mg/dL 22 Because ethnic data is not always readily available, this report includes an eGFR for both -Americans and non- Americans. The National Kidney Disease Education Program (NKDEP) does not endorse the use of the MDRD equation for patients that are not between the ages of 18 and 70, are , have extremes of body size, muscle mass, or nutritional status, or are non- or non-. According to the National Kidney Foundation, irrespective of diagnosis, the stage of the disease is based on the level of kidney function: Stage Description GFR(mL/min/1.73 m(2)) 1 Kidney damage with normal or decreased GFR 90 2 Kidney damage with mild decrease in GFR 60-89 3 Moderate decrease in GFR 30-59 4 Severe decrease in GFR 15-29 5 Kidney failure <15 (or dialysis) 23 [employer]: [id number] 24 SEE RESULT BELOW Name: JUAN FRANCISCO PAIGE : [address]: Sawyer Bolivar MD Acct: [id number] Unit: [id number] AGE: 51 Location: ED Re03/17/17 SEX: F Status: DEP ER SPEC: [id number] RASHAAD: 03/17/17-[address] [facility] [address]: David Loera MD REQ: [id number] RECD: 03/17/17 STATUS: COMP [facility] DR: [facility] Maddie Manzo MD _ SOURCE: URINE SPDES: ORDERED: Urine Culture Procedure Result Reported Site Urine Culture Final 03/19/17- 808 ML No Growth (<1,000 CFU/mL) * ML - MAIN LAB ([facility]) . END OF REPORT * ML=Testing performed at Main Lab DEPARTMENT OF PATHOLOGY, [address] [place] [address] Hugo Camacho M.D. Director [facility] # [id number] 25 Acute inflammation: >10.00 26 Critical Result LACT:2.3 Called to [id number] at: 19:15:13 by:[id number] Read back by:[facility] Severe Sepsis and Septic Shock Management Bundle Measure requires all lactic acids initially measuring >2.0 mmol/L be repeated. 27 Desirable <150 Borderline high 150-199 High 200-499 Very High >500 28 Desirable <200 Borderline high 200-239 High >239 29 Low <40 Desirable: 40-60 High: >60 30 Desirable: <100 mg/dL Near Optimal: 100-129 mg/dL Borderline High: 130-159 mg/dL High: 160-189 mg/dL Very High: >189 mg/dL 31 Therapeutic target for the treatment of diabetes Mellitus patients is <7% HBA1C, and in selective patients <6.0%.Please refer to [place] [employer] Diabetic care guidelines for further information. 32 Because ethnic data is not always readily available, this report includes an eGFR for both -Americans and non- Americans. The National Kidney Disease Education Program (NKDEP) does not endorse the use of the MDRD equation for patients that are not between the ages of 18 and 70, are , have extremes of body size, muscle mass, or nutritional status, or are non- or non-. According to the National Kidney Foundation, irrespective of diagnosis, the stage of the disease is based on the level of kidney function: Stage Description GFR(mL/min/1.73 m(2)) 1 Kidney damage with normal or decreased GFR 90 2 Kidney damage with mild decrease in GFR 60-89 3 Moderate decrease in GFR 30-59 4 Severe decrease in GFR 15-29 5 Kidney failure <15 (or dialysis) 33 It is recognized that currently available assays for the detection of antibodies to HIV-1 and/or HIV-2 may not detect all infected individuals. HIV antibodies may be undetectable in some stages of the infection and in some clinical conditions. The performance of this assay has not been established for populations of infants or children. Assayed by Chemiluminescence Microparticle Immunoassay on the Siemens Advia Centaur CP. Values obtained with different methods or kits cannot be used interchangeably.The diagnostic specificity of the ADVIA Centaur 1/O/2 Enhanced assay in the low risk population was 99.90% (6052/6058) with a 95% confidence interval of 99.78 to 99.96%. 34 REFERENCE VALUE Cutoff: 100 35 REFERENCE VALUE Cutoff: 100 36 ADDITIONAL INFORMATION This report is intended for use in clinical monitoring and management of patients. It is not intended for use in employment-related testing. Test Performed by: [place] [address] [employer] Type: David Logan II, M.D., Ph.D. 37 REFERENCE VALUE Cutoff: 3.0 38 ADDITIONAL INFORMATION This report is intended for use in clinical monitoring and management of patients. It is not intended for use in employment-related testing. Test Performed by: [facility] [place] [address] [employer] Type: David Logan II, M.D., Ph.D. 39 REFERENCE VALUE Cutoff: 500 40 REFERENCE VALUE Cutoff: 200 41 REFERENCE VALUE Cutoff: 200 42 REFERENCE VALUE Cutoff: 150 43 REFERENCE VALUE Cutoff: 150 44 REFERENCE VALUE Cutoff: 300 45 Presumptive Positive Drug confirmation to follow. Presumptive Positive means that the screening method is positive, but the test needs to be run by a confirmatory method before being finalized. ADDITIONAL INFORMATION This report is intended for use in clinical monitoring or management of patients. It is not intended for use in employment-related testing. 46 Presumptive Positive Drug confirmation to follow. Presumptive Positive means that the screening method is positive, but the test needs to be run by a confirmatory method before being finalized. REFERENCE VALUE Cutoff: 100 ADDITIONAL INFORMATION This report is intended for use in clinical monitoring or management of patients. It is not intended for use in employment-related testing. Test Performed by: [facility] [address] [address] [employer] Type: David Logan II, M.D., Ph.D. 47 Because ethnic data is not always readily available, this report includes an eGFR for both -Americans and non- Americans. The National Kidney Disease Education Program (NKDEP) does not endorse the use of the MDRD equation for patients that are not between the ages of 18 and 70, are , have extremes of body size, muscle mass, or nutritional status, or are non- or non-. According to the National Kidney Foundation, irrespective of diagnosis, the stage of the disease is based on the level of kidney function: Stage Description GFR(mL/min/1.73 m(2)) 1 Kidney damage with normal or decreased GFR 90 2 Kidney damage with mild decrease in GFR 60-89 3 Moderate decrease in GFR 30-59 4 Severe decrease in GFR 15-29 5 Kidney failure <15 (or dialysis) 48 Desirable <150 Borderline high 150-199 High 200-499 Very High >500 49 Desirable <200 Borderline high 200-239 High >239 50 Low <40 Desirable: 40-60 High: >60 51 Desirable: <100 mg/dL Near Optimal: 100-129 mg/dL Borderline High: 130-159 mg/dL High: 160-189 mg/dL Very High: >189 mg/dL 52 Therapeutic target for the treatment of diabetes Mellitus patients is <7% HBA1C, and in selective patients <6.0%.Please refer to [place] [employer] Diabetic care guidelines for further information. 53 FASTING 10 HOUR 54 Because ethnic data is not always readily available, this report includes an eGFR for both -Americans and non- Americans. The National Kidney Disease Education Program (NKDEP) does not endorse the use of the MDRD equation for patients that are not between the ages of 18 and 70, are , have extremes of body size, muscle mass, or nutritional status, or are non- or non-. According to the National Kidney Foundation, irrespective of diagnosis, the stage of the disease is based on the level of kidney function: Stage Description GFR(mL/min/1.73 m(2)) 1 Kidney damage with normal or decreased GFR 90 2 Kidney damage with mild decrease in GFR 60-89 3 Moderate decrease in GFR 30-59 4 Severe decrease in GFR 15-29 5 Kidney failure <15 (or dialysis) 55 PT IS FASTING 56 Desirable <150 Borderline high 150-199 High 200-499 Very High >500 57 Desirable <200 Borderline high 200-239 High >239 58 Low <40 Desirable: 40-60 High: >60 59 Desirable <100 Near Optimal 100-129 Borderline high 130-159 High 160-189 Very High >189 60 Because ethnic data is not always readily available, this report includes an eGFR for both -Americans and non- Americans. The National Kidney Disease Education Program (NKDEP) does not endorse the use of the MDRD equation for patients that are not between the ages of 18 and 70, are , have extremes of body size, muscle mass, or nutritional status, or are non- or non-. According to the National Kidney Foundation, irrespective of diagnosis, the stage of the disease is based on the level of kidney function: Stage Description GFR(mL/min/1.73 m(2)) 1 Kidney damage with normal or decreased GFR 90 2 Kidney damage with mild decrease in GFR 60-89 3 Moderate decrease in GFR 30-59 4 Severe decrease in GFR 15-29 5 Kidney failure <15 (or dialysis) 61 Microalbuminuria in a random sample is defined as: Microalbumin/Creatinine ratio of 30-299 ug/mg. 62 Therapeutic target for the treatment of diabetes Mellitus patients is <7% HBA1C, and in selective patients <6.0%.Please refer to [place] [employer] Diabetic care guidelines for further information. 63 -- REFERENCE VALUE -- 25-HYDROXY D TOTAL (D2+D3) Optimum levels in the healthy population are 20-50, patients with bone disease may benefit from higher levels within this range. Test Performed by: [address] [address] [employer] Type: Param Richardson III, M.D. 64 Because ethnic data is not always readily available, this report includes an eGFR for both -Americans and non- Americans. The National Kidney Disease Education Program (NKDEP) does not endorse the use of the MDRD equation for patients that are not between the ages of 18 and 70, are , have extremes of body size, muscle mass, or nutritional status, or are non- or non-. According to the National Kidney Foundation, irrespective of diagnosis, the stage of the disease is based on the level of kidney function: Stage Description GFR(mL/min/1.73 m(2)) 1 Kidney damage with normal or decreased GFR 90 2 Kidney damage with mild decrease in GFR 60-89 3 Moderate decrease in GFR 30-59 4 Severe decrease in GFR 15-29 5 Kidney failure <15 (or dialysis) 65 Microalbuminuria in a random sample is defined as: Microalbumin/Creatinine ratio of 30-299 ug/mg. 66 Because ethnic data is not always readily available, this report includes an eGFR for both -Americans and non- Americans. The National Kidney Disease Education Program (NKDEP) does not endorse the use of the MDRD equation for patients that are not between the ages of 18 and 70, are , have extremes of body size, muscle mass, or nutritional status, or are non- or non-. According to the National Kidney Foundation, irrespective of diagnosis, the stage of the disease is based on the level of kidney function: Stage Description GFR(mL/min/1.73 m(2)) 1 Kidney damage with normal or decreased GFR 90 2 Kidney damage with mild decrease in GFR 60-89 3 Moderate decrease in GFR 30-59 4 Severe decrease in GFR 15-29 5 Kidney failure <15 (or dialysis) 67 HDL Interpretation: Undesirable: High Risk: Less than 40 mg/dL Desirable: Low Risk: Greater than 60 mg/dL 68 LDL Interpretation: Low Risk Optimal Level: LDL Less than 100 mg/dL Near or Above Optimal: LDL 100-129 mg/dL Borderline High Risk: LDL 130-159 mg/dL High Risk: LDL 160-189 mg/dL Very High Risk: LDL Greater than 189 mg/dL 69 -- REFERENCE VALUE -- Cutoff: 500 70 -- REFERENCE VALUE -- Cutoff: 200 71 -- REFERENCE VALUE -- Cutoff: 200 72 -- REFERENCE VALUE -- Cutoff: 150 73 -- REFERENCE VALUE -- Cutoff: 300 74 -- REFERENCE VALUE -- Cutoff: 300 75 -- REFERENCE VALUE -- Cutoff: 300 76 Presumptive Positive Drug confirmation to follow. Presumptive Positive means that the screening method is positive, but the test needs to be run by a confirmatory method before being finalized. This report is intended for use in clinical monitoring or management of patients. It is not intended for use in employment-related testing. 77 Test Performed by: [address] [address] Screw Machine Operator [place] Type: Param Richardson III, M.D. 78 -- REFERENCE VALUE -- Cutoff: 300 79 -- REFERENCE VALUE -- Cutoff: 100 80 -- REFERENCE VALUE -- Cutoff: 100 81 -- REFERENCE VALUE -- Cutoff: 100 82 -- REFERENCE VALUE -- Cutoff: 100 83 -- REFERENCE VALUE -- Cutoff: 100 84 Positive. Discrepancy noted between immunoassay result and GC/MS result. The GC/MS result is the definitive result. This report is intended for use in clinical monitoring and management of patients. It is not intended for use in employment-related testing. Test Performed by: [place] [address] Scre[employer] Machine Operator [place] Type: aPram Richardson III, M.D. 85 Presumptive Positive 86 This report is intended for use in clinical monitoring and management of patients. It is not intended for use in employment-related testing. Test Performed by: [place] [address] [employer] Machine [employer] [place] Type: Param Richardson III, M.D. 87 -- REFERENCE VALUE -- 25-HYDROXY D TOTAL (D2+D3) Optimum levels in the normal population are 25-80 Test Performed by: [place] [address] [employer] Machine [employer] [place] Type: Param Richardson III, M.D. 88 Interpretation: 10-24 (mild to moderate deficiency) -- REFERENCE VALUE -- 25-HYDROXY D TOTAL (D2+D3) Optimum levels in the normal population are 25-80 Test Performed by: [place] [address] Scre[employer] Machine Operator [place] Type: Param Richardson III, M.D. 89 RUN DATE: 03/09/13 [facility] LAB LIVE PAGE 1 RUN TIME: [address] [place] [address] Specimen Inquiry Name: JUAN FRANCISCO PAIGE : [address]: Maddie Manzo MD Acct: [id number] Unit: [id number] AGE: 47 Location: [facility] Re03/08/13 SEX: F Status: REG REF SPEC: [id number] RASHAAD: 03/08/13-[address] [facility] [address]: Maddie Manzo MD REQ: [id number] RECD: 03/08/131543 STATUS: SOUT _ ORDERED: IMAGE ANALYSIS FINAL DIAGNOSIS Negative for Intraepithelial lesion or Malignancy Fungal organisms morphologically consistent with Francisca species A. Vaginal Specimen Adequacy: Satisfactory of evaluation Patient Information: HPV: Thin Layer Pap Test w/reflex to high risk HPV DNA testing when ASCUS Actual Specimen Date: 03/08/13 LMP If Unknown: 2004 ?: N Hysterectomy?: Y Previous Abnormal Pap Smears?:N Signed (signature on file) ALEX Shea (ASCP) 03/09/13 6994 This Pap test was evaluated with the assistance of the iVerse MediaPrep Test Imaging System. Due to cytologic findings at the hand spinner microscope, comprehensive manual rescreening by a Pan Dumper may be required. The Pap Smear is a screening test designed to aid in the detection of premalignant and malignant conditions of the uterine cervix. It is not a diagnostic procedure and should not be used as the sole means of detecting cervical cancer. Both false- positive and false- negative reports do occur. Depending on your risk status, a Pap smear shoudl be obtained and evaluated every 1-3 years. END OF REPORT * ML=Testing performed at Main Lab DEPARTMENT OF PATHOLOGY, [address] [place] [address] Hugo Camacho M.D. Director [facility] Permit #[id number] 90 UNABLE TO CALCULATE IND.BILI D.BILI IS <0.1 91 -- REFERENCE VALUE -- Cutoff: 500 92 -- REFERENCE VALUE -- Cutoff: 200 93 -- REFERENCE VALUE -- Cutoff: 200 94 -- REFERENCE VALUE -- Cutoff: 150 95 -- REFERENCE VALUE -- Cutoff: 300 96 -- REFERENCE VALUE -- Cutoff: 300 97 -- REFERENCE VALUE -- Cutoff: 300 98 This report is intended for use in clinical monitoring or management of patients. It is not intended for use in employment-related testing. 99 Specimen unusually dilute. 10 Test Performed by: [address] [address] Screw Machine Operator [place] Type: Param Richardson III, M.D. 10 -- REFERENCE VALUE -- 1 Cutoff: 300 10 -- REFERENCE VALUE -- 2 Cutoff: 100 10 -- REFERENCE VALUE -- 3 Cutoff: 100 10 -- REFERENCE VALUE -- 4 Cutoff: 100 10 -- REFERENCE VALUE -- 5 Cutoff: 100 10 -- REFERENCE VALUE -- 6 Cutoff: 100 10 Positive. 7 Discrepancy noted between immunoassay result and GC/MS result. The GC/MS result is the definitive result. This report is intended for use in clinical monitoring and management of patients. It is not intended for use in employment-related testing. Test Performed by: [address] [address] Screw Machine Operator [place] Type: Param Richardson III, M.D. 10 HDL Interpretation: 8 Undesirable: High Risk: Less than 40 MG/DL Desirable: Low Risk: Greater than 60 MG/DL 10 LDL Interpretation: 9 Low Risk Optimal Level: LDL Less than 100 MG/DL Near or Above Optimal: LDL 100-129 MG/DL Borderline High Risk: LDL 130-159 MG/DL High Risk: LDL 160-189 MG/DL Very High Risk: LDL Greater than 189 MG/DL 11 Because ethnic data is not always readily available, 0 this report includes an eGFR for both -Americans and non- Americans. The National Kidney Disease Education Program (NKDEP) does not endorse the use of the MDRD equation for patients that are not between the ages of 18 and 70, are , have extremes of body size, muscle mass, or nutritional status, or are non- or non-. According to the National Kidney Foundation, irrespective of diagnosis, the stage of the disease is based on the level of kidney function: Stage Description GFR(mL/min/1.73 m(2)) 1 Kidney damage with normal or decreased GFR 90 2 Kidney damage with mild decrease in GFR 60-89 3 Moderate decrease in GFR 30-59 4 Severe decrease in GFR 15-29 5 Kidney failure <15 (or dialysis) 11 Microalbuminuria in a random sample is defined as: 1 Microalbumin/Creatinine ratio of 30-299 ug/mg. 11 -- REFERENCE VALUE -- 2 Cutoff: 500 11 -- REFERENCE VALUE -- 3 Cutoff: 200 11 -- REFERENCE VALUE -- 4 Cutoff: 200 11 -- REFERENCE VALUE -- 5 Cutoff: 150 11 -- REFERENCE VALUE -- 6 Cutoff: 300 11 -- REFERENCE VALUE -- 7 Cutoff: 300 11 -- REFERENCE VALUE -- 8 Cutoff: 300 11 This report is intended for use in clinical monitoring or 9 management of patients. It is not intended for use in employment-related testing. 12 Test Performed by: [address] [place] [id number] Scre[employer] Machine Operator [place] Type: Param Richardson III, M.D. 12 -- REFERENCE VALUE -- 1 Cutoff: 300 12 -- REFERENCE VALUE -- 2 Cutoff: 100 12 -- REFERENCE VALUE -- 3 Cutoff: 100 12 -- REFERENCE VALUE -- 4 Cutoff: 100 12 -- REFERENCE VALUE -- 5 Cutoff: 100 12 -- REFERENCE VALUE -- 6 Cutoff: 100 12 Positive. 7 Discrepancy noted between immunoassay result and GC/MS result. The GC/MS result is the definitive result. This report is intended for use in clinical monitoring and management of patients. It is not intended for use in employment-related testing. Test Performed by: [address] [address] Screw Machine Operator [place] Type: Param Richardson III, M.D. 12 RUN DATE: 10/23/12 [facility] LAB LIVE PAGE 1 8 RUN TIME: [address] [place] [address] Specimen Inquiry Name: JUAN FRANCISCO PAIGE : [address]: Maddie Manzo MD Acct: [id number] Unit: [id number] AGE: 47 Location: [facility] Re10/20/12 SEX: F Status: REG REF SPEC: [id number] RASHAAD: 10/20/[address]: Maddie Manzo MD REQ: [id number] RECD: 10/20/12 STATUS: COMP _ SOURCE: URINE SPDESC: ORDERED: Urine Culture QUERIES: Medent Number [id number] Procedure Result Verified Site Urine Culture Final 10/23/12- 0839 ML Organism 1 ESCHERICHIA COLI Sanders Count 25-50,000 (Moderate) CFU/ML Organism 2 NORMAL DEISY Sanders Count 1-10,000 (Few) CFU/ML 1. ESCHERICHIA COLI M.I.C. RX --------- ------ Amikacin <=2 S Ampicillin <=2 S * Ampicillin/Sublactam <=2 S Cefazolin <=4 S Cefepime <=1 S Cefoxitin <=4 S Ceftazidime <=1 S Ceftriaxone <=1 S Ciprofloxacin <=0.25 S Gentamicin <=1 S Imipenem <=1 S Levofloxacin <=0.12 S Nitrofurantoin <=16 S Piperacillin <=4 S Tigecycline <=0.5 S Trimethoprim/Sulfamethoxazole <=20 S CONTINUED ON NEXT PAGE * ML=Testing performed at Main Lab DEPARTMENT OF PATHOLOGY, [facility] [place] [employer] [place] [address] Hugo Camacho M.D. Director [facility] Permit #[id number] RUN DATE: 10/23/12 [facility] LAB LIVE PAGE 2 RUN TIME: 838 [facility] [place] [employer] [place] [address] Specimen Inquiry Patient: JUAN FRANCISCO PAIGE [id number] (Continued) Specimen: [id number] Collected: 10/20/12 Received: 10/20/12-1552 (Continued) Procedure Result Verified Site Urine Culture Final (continued) * These antibiotics are not available in the [facility] Formulary Contact the Microbiology Department for any additional antibiotic reporting. END OF REPORT * ML=Testing performed at Main Lab DEPARTMENT OF PATHOLOGY, [facility] [place] [employer] [place], [place] [address] Hugo Camacho M.D. Director [facility] Permit #[id number] 12 RUN DATE: 09/04/12 [facility] LAB LIVE PAGE 1 9 RUN TIME: 7876 [facility] [place] [employer] [place], [place] [address] Specimen Inquiry Name: JUAN FRANCISCO PAIGE : [address]: Maddie Manzo MD Acct: [id number] Unit: [id number] AGE: 47 Location: [facility] Re09/01/12 SEX: F Status: REG REF SPEC: [id number] RASHAAD: 09/01/[address] [facility] [address]: Maddie Manzo MD REQ: [id number] RECD: 09/01/12 STATUS: COMP _ SOURCE: THROAT SPDESC: ORDERED: Throat Culture QUERIES: Medent Number [id number] Procedure Result Verified Site Throat Culture Final 09/04/12- 1246 ML Organism 1 NORMAL DEISY Quantity 3+ Throat cultures are clinically indicated to detect the presence of group A strep, arcanobacterium and yeast. END OF REPORT * ML=Testing performed at Main Lab DEPARTMENT OF PATHOLOGY, [address] [place] [address] Hugo Camacho M.D. Director [facility] Permit #[id number] 13 Anion gap measurement may be of limited value in the 0 presence of any alkalosis, especially in a combined acid base disorder. . 13 A metabolite of Naproxen, O-desmethylnaproxen, has been 1 shown to interfere with the Jendrassik-Mary Anne method for measuring total bilirubin. Samples from patients who have taken Naproxen have shown spurious elevation in total bilirubin levels. 13 Because ethnic data is not always readily available, 2 this report includes an eGFR for both -Americans and non- Americans. The National Kidney Disease Education Program (NKDEP) does not endorse the use of the MDRD equation for patients that are not between the ages of 18 and 70, are , have extremes of body size, muscle mass, or nutritional status, or are non- or non-. According to the National Kidney Foundation, irrespective of diagnosis, the stage of the disease is based on the level of kidney function: Stage Description GFR(mL/min/1.73 m(2)) 1 Kidney damage with normal or decreased GFR 90 2 Kidney damage with mild decrease in GFR 60-89 3 Moderate decrease in GFR 30-59 4 Severe decrease in GFR 15-29 5 Kidney failure <15 (or dialysis) 13 CHOLESTEROL INTERPRETATION: 3 Desirable: Less than 200 MG/DL Borderline-High Risk: 200-239 MG/DL High-Risk: 240 MG/DL and over 13 HDL INTERPRETATION: 4 Undesirable: High Risk: Less than 40 MG/DL Desirable: Low Risk: Greater than 60 MG/DL 13 LDL INTERPRETATION: 5 Low Risk Optimal Level: LDL Less than 100 MG/DL Near or Above Optimal: LDL 100-129 MG/DL Borderline High Risk: LDL 130-159 MG/DL High Risk: LDL 160-189 MG/DL Very High Risk: LDL Greater than 189 MG/DL 13 -- REFERENCE VALUE -- 6 Cutoff: 500 13 -- REFERENCE VALUE -- 7 Cutoff: 200 13 -- REFERENCE VALUE -- 8 Cutoff: 200 13 -- REFERENCE VALUE -- 9 Cutoff: 300 14 -- REFERENCE VALUE -- 0 Cutoff: 300 14 -- REFERENCE VALUE -- 1 Cutoff: 300 14 -- REFERENCE VALUE -- 2 Cutoff: 300 14 This report is intended for use in clinical monitoring or 3 management of patients. It is not intended for use in employment-related testing. Test Performed by: [facility] Dpt of Lab Med and Pathology [address] [place] [address] Screw Machine Operator Swiss Type: Param Richardson III, M.D. 14 -- REFERENCE VALUE -- 4 Cutoff: 300 14 -- REFERENCE VALUE -- 5 Cutoff: 100 14 -- REFERENCE VALUE -- 6 Cutoff: 100 14 -- REFERENCE VALUE -- 7 Cutoff: 100 14 -- REFERENCE VALUE -- 8 Cutoff: 100 14 -- REFERENCE VALUE -- 9 Cutoff: 100 15 This report is intended for use in clinical monitoring and 0 management of patients. It is not intended for use in employment-related testing. Test Performed by: [facility] Dpt of Lab Med and Pathology [address] [place] [address] Screw Machine Operator Swiss Type: Param Richardson III, M.D. Procedures Date Code Description Status 05/26/2019 00690 ECHO Transthoracic, Real-Time 2D With Doppler And Completed Color Flow 2018 [id number] Diabetic Retinal Eye Exam Completed 04/11/2018 26163 Inject/Drain Joint/Bursa Major W/O US Completed 12/30/2017 01129 Diffusing Capacity Completed 12/30/2017 37543 Plethysmography Determination Lung Volumes & Per Completed Airway Resist 12/30/2017 07294 Pulmonary Function><Bronchodil Completed 12/30/2017 [id number] Mammogram Completed 09/01/2017 36818 Inhalation TX For Acute Airway Obstruction Completed W/Nebulizer/Inhaler 03/30/2017 47185 ECHO Transthoracic, Real-Time 2D With Doppler And Completed Color Flow 02/15/2017 72301 EKG Tracing & Interpretation Completed 02/11/2016 [id number] Bone Mineral Density Test Completed 08/26/2015 [id number] Diabetic Foot Exam Completed 07/02/2015 [id number] Mammogram Completed 03/13/2015 19107 Pulmonary Function><Bronchodil Completed 03/13/2015 31426 Plethysmography Determination Lung Volumes & Per Completed Airway Resist 12/25/2014 [id number] Mammogram Completed 06/22/2014 [id number] Mammogram Completed 04/25/2014 [id number] Colonoscopy Completed 03/17/2013 078096624 Bone Mineral Density Test Completed 03/06/2013 768035408 Diabetic Foot Exam Completed 08/16/2012 07927 EKG Tracing & Interpretation Completed 05/31/2012 [id number] Bone Mineral Density Test Completed 05/31/2012 [id number] Mammogram Completed Encounters Type Date Location Provider Dx Diagnosis Office Visit 05/02/2019 Pulmonology And Bety Diallo, G47.33 Obstructive sleep 10:30a [facility], RN, DISABILITY PROGRAM NAVIGATOR-BC apnea (adult) [facility] (pediatric) F17.210 Nicotine dependence, cigarettes, uncomplicated E66.9 Obesity, unspecified Office Visit 04/10/2019 8:30a [facility] Tamia Odom, M25.552 Pain in left Of C.MAngelA. MJonathon hip M16.12 Unilateral primary osteoarthritis, left hip Office Visit 07/28/2018 9:40a [facility] Internal [place] E11.9 Type 2 diabetes Diana Long M.D. mellitus without [address] complications E78.1 Pure hyperglyceridemia I10 Essential (primary) hypertension B35.4 Tinea corporis J44.9 Chronic obstructive pulmonary disease, unspecified Office Visit 07/14/2018 8:40a [facility] Internal [place] B35.4 Tinea corporis Diana Long M.D. [address] Office Visit 04/26/2018 9:40a [facility] Internal [place] E11.9 Type 2 diabetes Diana Long M.D. mellitus without Suite R complications I10 Essential (primary) hypertension E78.1 Pure hyperglyceridemia K21.9 Gastro-esophageal reflux disease without esophagitis J30.2 Other seasonal allergic rhinitis Office Visit 04/11/2018 1:30p Orthopedic Roscoe F M25.562 Pain in left Services Of CAngelM.A. Amos, MD knee M71.22 Synovial cyst of popliteal space [Soto], left knee M17.12 Unilateral primary osteoarthritis, left knee Office Visit 03/30/2018 Pulmonology And Bety G47.33 Obstructive sleep 10:30a [facility] Diallo, RN, apnea (adult) [facility] DISABILITY PROGRAM NAVIGATOR-BC (pediatric) F17.201 Nicotine dependence, unspecified, in remission Z68.41 Body mass index (BMI) 40.0-44.9, adult Office Visit 03/25/2018 11:20a [facility] Internal [place] Long, J06.9 Acute upper Medicine - MJonathon respiratory [address] infection, unspecified M79.662 Pain in left lower leg Office Visit 01/13/2018 8:40a [facility] Krystin Paulino E11.9 Type 2 diabetes Diana Long M.D. mellitus without Suite [address] complications J44.1 Chronic obstructive pulmonary disease w (acute) exacerbation K21.9 Gastro-esophageal reflux disease without esophagitis E78.1 Pure hyperglyceridemia I10 Essential (primary) hypertension Office Visit 11/19/2017 9:00a [facility] Internal [place] Long, Z00.01 Encounter for Medicine - MJonathon general adult Suite [address] medical exam w abnormal findings E11.9 Type 2 diabetes mellitus without complications J44.1 Chronic obstructive pulmonary disease w (acute) exacerbation R18.8 Other ascites K21.9 Gastro-esophageal reflux disease without esophagitis J06.9 Acute upper respiratory infection, unspecified F17.210 Nicotine dependence, cigarettes, uncomplicated Z12.31 Encntr screen mammogram for malignant neoplasm of breast Office Visit 09/07/2017 3:00p [facility] Krystin Paulino J06.9 Acute upper Medicine Wallace Long M.D. respiratory [address] infection, unspecified Office Visit 09/01/2017 2:40p Hemant Nelson Cma44.1 Chronic Internal MJonathon obstructive Medicine-Wes[place]w pulmonary disease ood w (acute) exacerbation J06.9 Acute upper respiratory infection, unspecified F17.210 Nicotine dependence, cigarettes, uncomplicated Office 07/06/2017 KaneotDamian [facility] Krystin Perkins E11Angel9 Type 2 diabetes Visit 10:10a Medicine-Randy Manzo M.D. mellitus without complications E78.1 Pure hyperglyceridemia R25.2 Cramp and spasm F17.210 Nicotine dependence, cigarettes, uncomplicated Z12.31 Encntr screen mammogram for malignant neoplasm of breast Office 03/25/2017 Alisson [facility] Internal Maddie K59.03 Drug induced Visit 8:50a Ashvin Manzo M.D. constipation R01.1 Cardiac murmur, unspecified Z71.6 Tobacco abuse counseling Office Visit 03/24/2017 Pulmonology And Bety G47.33 Obstructive sleep 8:45a [facility] Diallo, RN, apnea (adult) [facility] (pediatric) E66.9 Obesity, unspecified R00.8 Other abnormalities of heart beat F17.210 Nicotine dependence, cigarettes, uncomplicated Office 02/15/2017 Alisson [facility] Internal Maddie E11.9 Type 2 diabetes Visit 11:50a Ashvin Manzo M.D. mellitus without complications E78.2 Mixed hyperlipidemia I10 Essential (primary) hypertension Z71.6 Tobacco abuse counseling Office Visit 09/29/2016 Orthopedic Philipp S92.511D Disp fx of prox 11:00a Services Of Aurea Armijo phalanx of r less C.M.A. toe(s), 7thD Office Visit 08/27/2016 Orthopedic Philipp S92.511D Disp fx of prox 11:00a Services Of Aurea Armijo phalanx of r less C.M.A. toe(s), 7thD Office Visit 08/06/2016 Orthopedic Philipp S92.511A Disp fx of 9:00a Services Of Aurea Armijo proximal phalanx C.M.A. of right lesser toe(s), init Office Visit 07/23/2016 Alisson Rodriguesa I10 Essential 11:50a Krystin Manzo M.D. (primary) Medicine-Wes[facility]wo hypertension od Z71.6 Tobacco abuse counseling Office Visit 07/22/2016 Pulmonology And Bety G47.33 Obstructive sleep 11:45a [facility] Diallo RN, apnea (adult) [facility] (pediatric) E66.9 Obesity, unspecified Office Visit 06/30/2016 10:50a [facility] Internal Maddie E11.9 Type 2 diabetes Diana Manzo M.D. mellitus without Ccmob complications M79.671 Pain in right foot I10 Essential (primary) hypertension F17.210 Nicotine dependence, cigarettes, uncomplicated Office Visit 04/09/2016 1:15p Pulmonology And Nabil BAEZA G47.33 Obstructive sleep [facility] Beasley apnea (adult) [facility] (pediatric) Office Visit 02/04/2016 9:00a [facility] Internal Nurse Visit C Z11.59 [facility] other [facility] diseases Z11.4 Encounter for screening for human immunodeficiency virus E78.1 Pure hyperglyceridemia I10 Essential (primary) hypertension E87.6 Hypokalemia Office Visit 01/30/2016 1:30p Pulmonology And Nabil BAEZA G47.33 Obstructive sleep [facility] Beas[facility] apnea (adult) [facility] (pediatric) Office Visit 01/21/2016 11:10a [facility] Internal Maddie Z00.00 Encntr for Medicine - Annalisa Manzo M.D. general adult medical exam w/o abnormal findings I10 Essential (primary) hypertension M85.862 Oth disrd of bone density and structure, left lower leg Office Visit 12/30/2015 11:50a [facility] Internal Maddie E11.9 Type 2 diabetes Diana Manzo M.D. mellitus without Ccmob complications E78.1 Pure hyperglyceridemia B86 Scabies M47.896 Other spondylosis, lumbar region E87.6 Hypokalemia Office Visit 12/10/2015 11:50a [facility] Internal Maddie Manzo M54.5 Low back pain Medicine - Annalisa Villar B86 Scabies G47.30 Sleep apnea, unspecified Office Visit 09/12/2015 10:10a [facility] Internal Maddie Manzo J01.80 Other [facility] sinusitis J44.1 Chronic obstructive pulmonary disease w (acute) exacerbation Office Visit 08/05/2015 1:10p [facility] Internal Maddie 250.00 Diabetes Mellitus [facility] W/O Compl Type II Or Unspec Controlled 272.1 Hypertriglyceridemia Pure 715.09 Osteoarthrosis Generalized Multiple Sites 110.1 Dermatophytosis Nail Office Visit 05/21/2015 10:30a [facility] Internal Nurse Visit A 401.9 Hypertension Unspec Medicine - Ccmob Office Visit 05/14/2015 10:50a [facility] Internal Maddie 461.8 Sinusitis Acute Medicine Wallace Manzo M.D. Other Ccmob 477.9 Rhinitis Allergic Cause Unspec 845.00 Sprains & Strains Ankle Unspec Site 333.94 Restless Leg Syndrome 401.9 Hypertension Unspec Office Visit 04/01/2015 10:10a [facility] Internal Maddie Jovany, 496 COPD Airway [facility] [facility] Obstruction Chronic Not Class Elsewhere 305.1 Tobacco Use Disorder V76.0 Screening Malignant Neoplasm Respiratory Organs V03.82 Streptococcus Pneumoniae Vaccination Spec Other Office Visit 02/20/2015 9:50a [facility] Maddie Jovany, 477.9 [facility] Allergic Cause Unspec 305.1 Tobacco Use Disorder Office Visit 01/30/2015 2:30p [facility] Maddie Jovany, 461.8 Sinusitis [facility] Other 250.00 Diabetes Mellitus W/O Compl Type II Or Unspec Controlled 496 COPD Airway Obstruction Chronic Not Class Elsewhere 715.09 Osteoarthrosis Generalized Multiple Sites Office Visit 09/26/2014 10:30a [facility] Maddie 715.09 Osteoarthrosis Diana Manzo M.D. [facility] V04.81 Need For Prophylactic Vaccination & Inoculation/Influenza 305.1 Tobacco Use Disorder Office Visit 08/02/2014 2:10p [facility] Maddie 250.00 Diabetes Mellitus Diana Manzo M.D. W/O Compl Type II Or Unspec Controlled 272.1 Hypertriglyceridemia Pure 715.09 Osteoarthrosis Generalized Multiple Sites Office Visit 03/12/2014 1:10p [facility] Maddie V70.0 Examination Medicine Wallace Manzo M.D. General Medical Routine [facility] 788.1 Dysuria 112.9 Candidiasis Unspec Site 305.1 Tobacco Use Disorder V76.41 Screening Malignant Neoplasm Rectum V76.10 Screening For Malignant Neoplasm Breast 995.0 Other Anaphylactic Reaction Office Visit 01/30/2014 1:50p [facility] Maddie 250.00 Diabetes Mellitus Diana Manzo M.D. W/O Compl Type II Or Unspec Controlled 401.1 Hypertension Benign 305.1 Tobacco Use Disorder 715.09 Osteoarthrosis Generalized Multiple Sites 268.9 Vitamin D Deficiency Unspec Office Visit 09/14/2013 [facility] Maddie 272.1 Hypertriglyceridemia Pure 11:50a Diana Manzo M.D. Ccmob 305.22 Cannabis Abuse Episodic 715.09 Osteoarthrosis Generalized Multiple Sites V04.81 Need For Prophylactic Vaccination & Inoculation/Influenza V65.42 Counseling On Substance Use & Abuse Office Visit 08/07/2013 10:30a [facility] Maddie 250.00 Diabetes Mellitus Diana Manzo M.D. W/O Compl Type II Or Unspec Controlled 715.09 Osteoarthrosis Generalized Multiple Sites V16.49 Family History Malignant Neoplasm Other 305.1 Tobacco Use Disorder 790.21 Impaired Fasting Glucose Office Visit 07/05/2013 2:30p [facility] Maddie 112.1 Candidiasis The Diana Manzo M.D. Vulva & Vagina 715.09 Osteoarthrosis Generalized Multiple Sites Office Visit 06/06/2013 1:50p [facility] Maddie 715.09 Osteoarthrosis Diana Manzo M.D. Generalized Multiple Ccm[facility] Sites 268.9 Vitamin D Deficiency Unspec Office Visit 03/08/2013 1:10p [facility] Maddie V72.31 Routine Brushing Machine Operator Diana Manzo M.D. Examination Ccmob V76.19 Screening Breast Exam Malignant Neoplasms Other 112.3 Candidiasis Skin & Nails 305.1 Tobacco Use Disorder 995.0 Other Anaphylactic Reaction V76.43 Screening Malignant Neoplasm Skin 781.91 Loss Of Height V76.12 Screening Mammogram Malig Fabian Other Office Visit 02/27/2013 10:30a [facility] Maddie 715.09 Osteoarthrosis Diana Manzo M.D. Generalized Multiple [facility] Sites 272.1 Hypertriglyceridemia Pure Office Visit 01/25/2013 10:10a [facility] Maddie 250.00 Diabetes Mellitus Diana Manzo M.D. W/O Compl Type II Or Unspec Controlled 272.1 Hypertriglyceridemia Pure 305.1 Tobacco Use Disorder 401.9 Hypertension Unspec 715.09 Osteoarthrosis Generalized Multiple Sites V16.49 Family History Malignant Neoplasm Other V03.82 Streptococcus Pneumoniae Vaccination Spec Other Office Visit 12/27/2012 11:50a [facility] Maddie 715.09 Osteoarthrosis Diana Manzo M.D. Generalized Multiple Ccmob Sites 477.9 Rhinitis Allergic Cause Unspec Office Visit 11/03/2012 10:10a [facility] Maddie Manzo, 616.3 [facility] Bartholins Gland 112.1 Candidiasis The Vulva & Vagina Office Visit 10/20/2012 10:50a [facility] Maddie Manzo, 599.0 UTI Urinary Tract Medicine Wallace Fang M.D. Infection Site Not Spec 715.09 Osteoarthrosis Generalized Multiple Sites Office Visit 09/29/2012 11:50a [facility] Maddie 715.09 Osteoarthrosis Diana Manzo M.D. [facility] 110.1 Dermatophytosis Nail 278.01 Obesity Morbid Office Visit 09/01/2012 9:30a [facility] Maddie Manzo, 462 Pharyngitis Acute Medicine - Annalisa [facility] 715.09 Osteoarthrosis Generalized Multiple Sites Office Visit 08/16/2012 9:50a [facility] Maddie 250.00 Diabetes Mellitus Diana - Annalisa Manzo M.D. W/O Compl Type II Or Unspec Controlled 466.0 Bronchitis Acute 564.00 Constipation Unspecified 401.9 Hypertension Unspec 272.1 Hypertriglyceridemia Pure 715.09 Osteoarthrosis Generalized Multiple Sites 305.1 Tobacco Use Disorder V04.81 Need For Prophylactic Vaccination & Inoculation/Influenza Office Visit 08/02/2012 10:10a [facility] Maddie Manzo, 466.0 Bronchitis Acute Medicine - Annalisa [facility] 724.2 Lumbago 715.09 Osteoarthrosis Generalized Multiple Sites 564.00 Constipation Unspecified 455.6 Hemorrhoids Unspec W/O Complication Office Visit 07/26/2012 10:30a [facility] Maddie 455.6 Hemorrhoids Unspec Diana Manzo M.D. W/O Complication Ccmob 564.00 Constipation Unspecified Office Visit 06/30/2012 3:10p [facility] Medicine Maddie Manzo, 724.2 Lumbago - Annalisa [facility] 715.98 Osteoarthrosis Unspec Genlzd Or Localized Other Spec Sites 276.7 Hyperpotassemia 788.33 Incontinence Mixed (Male) (Female) Office Visit 06/09/2012 9:45a [facility] Maddie 715.09 Osteoarthrosis Diana Manzo M.D. 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 Examination Ccmob 305.1 Tobacco Use Disorder 724.2 Lumbago 788.33 Incontinence Mixed (Male) (Female) V76.19 Screening Breast Exam Malignant Neoplasms Other 781.91 Loss Of Height V06.1 Vlglxbvacs-Tzpknac-Unpuajbv Combined (DTaP) Office Visit 04/25/2012 9:00a [facility] Maddie Jovany, 496 COPD Airway Medicine - Annalisa [facility] Obstruction Chronic Not Class Elsewhere 305.1 Tobacco Use Disorder 250.02 Diabetes Mellitus W/O Compl Type II Or Unspec Type Uncontrol Office Visit 03/29/2012 9:45a [facility] Maddievy Manzo, 250.02 Diabetes Medicine - Annalisa [facility] Mellitus W/O Compl Type II Or Unspec Type Uncontrol 272.1 Hypertriglyceridemia Pure 278.01 Obesity Morbid 790.21 Impaired Fasting Glucose Office Visit 03/24/2012 9:00a [facility] Maddie 401.9 Hypertension Unspec Medicine - Aurea Manzo Ccmob 278.00 Obesity Unspec 715.09 Osteoarthrosis Generalized Multiple Sites 724.2 Lumbago 790.21 Impaired Fasting Glucose 305.1 Tobacco Use Disorder 496 COPD Airway Obstruction Chronic Not Class Elsewhere Plan of Treatment Future Appointment(s):06/14/2019 8:30 am - Tamia Odom M.D. at [facility]06/01/2019 12:00 pm - BHUPENDRA Page at [facility]06/01/2019 12:00 pm - JONO Romero at [facility]06/01/2019 12:00 pm - JONO Calvo at [facility]05/01/2020 9:15 am - Bety Diallo DNP, RN, DISABILITY PROGRAM NAVIGATOR- at [facility]06/01/2019 12:00 pm - Tamia Odom M.D. at [facility]05/15/2019 - Tamia Odom M.D.M25.552 Pain in left hipFollow up:Follow up: 2 weeks after oaczoioW91.12 Unilateral primary osteoarthritis, left hip
--- OUTSIDE RECORDS SUMMARY | 2019-06-01 08:49 | XMS REPORT | Continuity of Care Document ---
:1965 External Reference #:[id number] Author Name Juan Zamoraersten Care Team Providers Name Role Phone Carleen Murrieta M.D. Primary Care Physician Unavailable Payers Date Identification Numbers Payment Provider Subscriber Effective: 2012 Policy Number: [id number] [place] Juan Francisco Paige Group Name: [id number] [address] PayID: [id number] [place] [address] Advance Directives Type Date Description Status Comment [...] Obesity Bety Diallo DNP, RN, Onset: 07/22/2016 [employer]-BC Type 2 diabetes mellitus Jefferson Long M.D. [...] Medications SIG Qnty Indications Ordering Date Provider Walker rolling walker with 1units Z47.1 Tamia Odom, 04/19/2019 [facility] [place] seat dx: s/p left M.D. hip replacement; left hip OA Toilet Seat Elevator s/p left hip 1units Z47.1 Tamia Odom, 04/19/2019 replacement M.D. [facility] [place] Cane standard adjustable 1units Tamia Odom, 04/10/2019 [facility] [place] height cane. dx: M.D. left hip OA Ketoconazole apply twice a day as 120units B35.4 [place] 07/28/2018 2% Cream needed Aurea Long Freestyle Lite Test test BS 2 times a 100units E11.9 [place] 07/15/2018 day and prn Pachikara, Strips M.D. Calcium Take One Tablet By 90tabs [facility] 01/31/2018 Carbonate-Vitamin D Mouth Every Day Aurea Manzo [id number] Tablets Omeprazole Take 1 Capsule By 30caps K21.9 [place] 11/19/2017 40mg Mouth In The Morning Mercedes Capsules DR 1 Hour Before Eating M.DAngel Nebulizer every 4-6 hrs as 1units J44.1 [facility] 09/01/2017 [facility] [place] needed Aurea Manzo Albuterol Sulfate Inhale The Contents 300units J44.1 [facility] 09/01/2017 Of One Vial Via Aurea Manzo (2.5mg/3ML) 0.083% Nebulizer Four Times Nebulizer A Day as Needed Fenofibrate take one tablet once 90tabs E78.1 [place] 07/06/2017 160mg daily Pachikara, Tablets M.DAngel Amlodipine Besylate take one tablet by 90tabs I10 Constantino Garcia 01/21/2016 mouth every day [place], 2.5mg Tablets M.D.,FACP Freestyle Glucometer test 2 times a day 1units [facility] 08/06/2014 Aurea Manzo Freestyle Lancets 2 daily and as 100units E11.9 [facility] 08/06/2014 needed Aurea Manzo [facility] [place] [facility] Epipen 2-Timi subcutaneously as 2units Maddie 05/27/2014 needed for Aurea Manzo 0.3mg/0.3ML Solution anaphylaxis Auto-Inject Ventolin HFA Inhale Two Puffs By 18units Jefferson 03/13/2013 Mouth Every 4 Hours Mercedes 108(90Base) mcg/Act as Needed MJonathon Aerosol Potassium Chloride Take One Tablet By [...] Jefferson rothiazide mouth every day Mercedes 20-12.5mg Aurea Tablets Methocarbamol 2 tabs by mouth tid [...] Sodium Take One Tablet By 30tabs J30.2 Jefferson 04/26/2018 - Mouth Every Day Aurea Long 05/01/2019 10mg Tablets Nateglinide three times a day 90tabs [place] 02/16/2018 - 60mg Aurea Long 05/01/2019 Tablets Prednisone 2 tab by mouth 5 10tabs [place] 11/30/2017 - 20mg days Aurea Long 01/13/2018 Tablets Metformin HCL Take One Tablet By 180tabs Constantino Garcia 11/29/2017 - Mouth Twice A Day Aurea Yarbrough,[facility] 05/01/2019 1000mg Tablets Mucinex 1 tab twice a day 30tabs [place] 11/23/2017 - 600mg by mouth Aurea Long 04/25/2018 Tablets ER 12HR Azithromycin 2 tab today and 6tabs [place] 11/23/2017 - 250mg then 1tab daily Aurea Long 11/28/2017 Tablets Cheratussin ac 10 milliliters by 473ml Constantino Garcia 09/16/2017 - mouth four times a Aurea Yarbrough,[facility] 11/19/2017 100-10mg/5ML Syrup day as needed Azithromycin 2 tab today and 6tabs J06.9 [place] 09/07/2017 - 250mg then 1tab daily Aurea Long 04/25/2018 Tablets Prednisone 3 tab by mouth QS J44.1 Maddie Manzo, 09/01/2017 - 20mg every day x1 day M.D. 09/11/2017 Tablets then 2 tab daily for [...] every 90tabs Maddie Manzo, 02/24/2017 - day M.D. 01/31/2018 [id number] Tablets Atorvastatin 1 by mouth every 90tabs E78.2 Maddie Manzo, 02/15/2017 - Calcium day M.D. 07/06/2017 10mg Tablets Levaquin 1 by mouth every 14tabs S92.511A Philipp Armijo, 08/06/2016 - 500mg day x 14 days - M.D. 02/15/2017 Tablets verbal order given to lavelle at [facility] [place] (No longer taking) Nicotine Step 3 once [...] Maddie Manzo, 03/23/2016 - day M.D. 02/23/2017 [id number] Tablets Ibuprofen Take One Tablet By 30tabs Maddie Manzo, 03/16/2016 - 600mg Mouth Three Times M.D. 04/21/2016 Tablets A Day as Needed Freestyle 28G Use For Testing 100units Maddie Manzo, 01/16/2016 - Lancets Two Times A Day as M.D. 07/15/2018 Needed Freestyle Lite Test use for testing 100units E11.9 [place] 01/15/2016 - two times a day Mercedes M.D. 07/15/2018 Strip Atorvastatin take one tablet by [...] Benzonatate one by mouth three 30caps Paola Varn, 09/13/2015 - 100mg times daily as N.P. [...] - needed M.D. 09/01/2017 1.25mg/3ML Nebulizer Percocet 1/2 -1 tab by 14tabs M15.0 Maddie Manzo, [...] - cravings M.D. 05/14/2015 2mg Lozenges Fluticasone [place] One [place] In 16units [place] 02/20/2015 - Propionate Each Nostril Every Pachikara, M.D. 05/01/2019 Day 50mcg/Act Suspension Benzonatate one by mouth three 30caps Paola Hopson, 02/01/2015 - 100mg times daily as N.P. 02/15/2015 Capsules needed for cough Advair Diskus Inhale One puff By 60units J44.9 Maddie Manzo, 01/30/2015 - Mouth Twice A Day M.D. 04/09/2019 250-50mcg/Dose Aerosol Doxycycline Hyclate 1 by mouth twice a 14caps aMddie Manzo, 01/30/2015 - day M.D. 02/20/2015 100mg [...] Accu-Chek Softclix Use as Directed as 100units Maddei Manzo, 2012 - Lancets Needed M.D. 01/15/2016 Misc Caltrate 600+D 1 by mouth once a 60tabs Maddie Manzo, 09/14/2013 - day M.D. 03/23/2016 [id number] Tablets Fluconazole 1 po qd 2tabs 112.1 Maddie Manzo, 07/05/2013 - 150mg M.D. 08/07/2013 Tablets Calcium 500 +D 1 po bid 60tabs Maddie Manzo, 06/06/2013 - M.D. 09/14/2013 [id number] Tablets Fluconazole 1 po then repeat 2tabs Angélica Lee, 05/16/2013 - 150mg x1 in 1week M.D. 06/06/2013 Tablets Ergocalciferol 1 tab by mouth 8caps Maddie Manzo, 04/24/2013 - every week M.D. 06/06/2013 [id number] Capsules 2-Timi sc as needed as 1units Maddie Manzo, 03/20/2013 - 0.3mg/0.3ML needed for M.D. 08/05/2015 Device anaphylaxis Fluconazole 1 po qd 2tabs Maddie Manzo, 03/09/2013 - 150mg M.D. 06/06/2013 Tablets Nystatin apply to affected 5units 112.3 Maddie Manzo, 03/08/2013 - areas twice a day M.D. 08/07/2013 [id number]/GM as needed for rash Powder x 10 [...] day as M.D. 05/14/2015 Tablets needed for Ogbi0tg Blood test daily 1units Juliana Spann, 11/11/2012 [...] Gemfibrozil take one tablet by 180tabs E78.1 Maddie Manzo, 03/29/2012 - 600mg mouth twice a day M.D. 12/30/2015 Tablets Accucheck Purvi check BS1- 2 100units 599.0 [facility] Manzo, 03/29/2012 - Chem Strips times/day M.D. 11/11/2012 Accucheck Lancets as needed 100units 599.0 [facility] Manzo, 03/29/2012 - (Soft-Clix) M.D. 11/11/2012 Accu-Check Glucose check 2-3 times a 1units 599.0 [facility] Manzo, 2011 - Monitor day M.D. 08/02/2014 Device Janumet 1 po bid 60tabs 599.0 [facility] Manzo, 03/29/2012 - 50-500mg M.D. 03/30/2012 Tablets Percocet 1 tab times a day 56tabs 715.09 [facility] Manzo, 03/24/2012 - 7.5-500mg as needed M.D. [...] Potassium Chloride 1 po qd 30tabs Maddie Manzo, - CR M.D. 10/20/2012 20Meq Tablets ER Medications Administered in Office Medication SIG Qnty Indications Ordering Provider Date Depomedrol 40MG Roscoe Trinidad MD 04/11/2018 Injection Immunizations CPT Code Status Date Vaccine Lot # [id number] Given 04/01/2015 Pneumococcal Conjugate Vaccine 13 Valent For [id number] Intramuscular Use 14432 Given 09/26/2014 Flu Vaccine Split Virus Preservative Free For [id number] Indiv 3Yr Older 46403 Given 09/14/2013 Flu Vaccine Split Virus Preservative Free For [id number] Indiv 3Yr Older 77453 Given 01/25/2013 Pneumonia Vaccine [id number] Given 08/16/2012 Fluzone Vaccine [id number] 82609 Given 08/16/2012 Influenza Virus 3Yrs & Over 63074 Given 05/26/2012 Tdap - Tetanus/Diptheria/Acellular Pertussis [id number] Vital Signs Date Vital Result Comment 05/15/2019 [...] Date Facility Test Result H/L Range Note Laboratory test 07/28/2018 [facility] Hemoglobin A1c 7.4 High 5-7 finding Lipid Profile 07/26/2018 [facility] Triglycerides 309 mg/dL 1 (Trig/Chol/HDL) [address] [place] [address] [phone] Cholesterol 138 mg/dL 2 HDL Cholesterol 25.3 mg/dL 3 LDL Cholesterol 51 mg/dL 4 Laboratory test 04/26/2018 [facility] Hemoglobin A1c 7.2 High 5-7 finding Lipid Profile 02/10/2018 [facility] Triglycerides 370 mg/dL 5, 6 (Trig/Chol/HDL) [address] [place] [address] [phone] Cholesterol 160 mg/dL 7 HDL Cholesterol 27.4 mg/dL 8 LDL Cholesterol 59 mg/dL 9 Comp Metabolic Panel 02/10/2018 [facility] Sodium 137 mmol/L N 133-145 [address] [place] [address] [phone] Potassium 3.9 mmol/L N 3.5-5.0 Chloride 102 [...] Egfr Non- 100.7 >60 Egfr 129.5 >60 10 Laboratory test 02/10/2018 [facility] Hemoglobin A1c 8.2 % High 4.0-5.6 11 finding [address] [facility] (Glyco HGB) [place] [address] [phone] Laboratory test 01/13/2018 [facility] Hemoglobin A1c 7.6 High 5-7 finding Laboratory test 11/19/2017 [facility] Hemoglobin A1c 8.7 High 5-7 finding Laboratory test 07/14/2017 [facility] Magnesium 1.7 Low 1.9- 2.7 finding 101 [facility] mg/[place] [address] [phone] Calcium Ionized 4.85 mg/dL N 4.65-5.28 Basic Metabolic Panel 07/14/2017 [facility] Sodium 135 mmol/L N 133-[address] [place] [address] [phone] Potassium 4.0 mmol/L N 3.5-5.0 Chloride 101 mmol/L N 101-111 Co2 Carbon Dioxide 28 mmol/L N 22-32 Anion Gap 6 mmol/L N 2-11 Glucose 199 mg/dL High 70-100 Blood Urea Nitrogen 12 mg/dL N 6-24 Creatinine 0.60 mg/dL N 0.51-0.95 BUN/Creatinine Ratio 20.0 N 8-20 Calcium 9.6 mg/dL N 8.6-10.3 Egfr Non- 104.6 N >60 Egfr 134.5 N >60 12 Laboratory test 06/14/2017 [facility] Hemoglobin A1c 6.9 % High Less [address] (Glyco HGB) than 6.0 [place] [address] [phone] Lipid Profile 06/14/2017 [facility] Triglycerides 369 N 14 (Trig/Chol/HDL) [address] mg/[place] [address] [phone] Cholesterol 113 mg/dL N 15 HDL Cholesterol 28.2 mg/dL N 16 LDL Cholesterol 11 mg/dL N 17 Urine Microalbumin 06/14/2017 [facility] Urine Creatinine 95.45 mg/dL N Random [address] [place] [address] [phone] Ur Microalbumin (mg/L) 27.4 mg/L N Urine Microalbumin/Creatinine 28.7 ug/mg N <31 Laboratory test 03/17/2017 [facility] Point of Care 113 mg/dL High 74-106 [address] [place] [address] [phone] Urinalysis 03/17/2017 [facility] Urine Color Yellow N Profile [address] [place] [address] [phone] Urine Appearance Cloudy N Urine Specific [place] 1.013 N 1.010-1.030 Urine pH 5.0 N [...] Present Abnormal Absent Comp Metabolic Panel 03/17/2017 [facility] Sodium 137 mmol/L N 133-[address] [place] [address] [phone] Potassium 3.4 mmol/L Low 3.5-5.0 Chloride 100 [...] 90.9 N >60 Egfr 116.9 N >60 19 Laboratory test finding 03/17/2017 [facility] Lipase 26 U/L N 11.0-82.[address] [place] [address] [phone] C Reactive Protein 2.92 mg/L N < 5.00 20 Lactic Acid 2.3 mmol/L High 0.5-2.0 21 CBC Auto 03/17/2017 [facility] White Blood 11.1 10^3/uL High 3.5-10.[address] [place] [address] [phone] Red Blood Count 4.94 10^6/uL N 4.0-5.4 [...] Nucleated Red Blood Cells % 0.1 N Urine Culture And 03/17/2017 [facility] Urine Culture SEE RESULT [address] [place] [address] [phone] Inr/Protime 03/17/2017 [facility] Inr 0.82 Low 0.[address] -1.1 [place] [address] 1 [phone] Laboratory test 03/17/2017 [facility] Partial Thrombo 28.2 N 26.[address] Time PTT seconds -36. [place] [address] [phone] Lipid Profile 02/08/2017 [facility] Triglycerides 207 mg/dL N 23 (Trig/Chol/HDL) [address] [place], [place] [id number] [phone] Cholesterol 111 mg/dL N 24 HDL Cholesterol 32.1 mg/dL N 25 LDL Cholesterol 38 mg/dL N 26 Laboratory test 02/08/2017 [facility] Hemoglobin A1c 7.3 % High Less than [address] (Glyco HGB) 6.0 [place], [place] [phone] Comp Metabolic 07/31/2016 [facility] Sodium 135 N 133-[address] mmol/L [place], [place] [phone] Potassium 4.0 mmol/L N 3.5-5.0 Chloride 103 [...] 95.7 N >60 Egfr 123.1 N >60 28 Laboratory test 06/30/2016 [facility] Hemoglobin A1c 6.1 5-7 finding Laboratory test 02/04/2016 [facility] Hepatitis C Nonreactive N Nonreactive finding [address] [place] [address] [phone] HIV 1/2 AB 02/04/2016 [facility] HIV 1 2 Nonreactive N Nonreactive [address] [place] [address] [phone] Liver Function 02/04/2016 [facility] Total Protein 6.9 g/dL N 6.4-8.[address] [place] [address] [phone] Albumin 4.3 g/dL N 3.2-5.2 Globulin 2.6 g/dL N 2-4 Albumin/Globulin Ratio 1.7 N 1-3 Total Bilirubin 0.20 mg/dL N 0.2-1.0 Direct Bilirubin 0.10 mg/dL N 0.03-0.18 Indirect Bilirubin 0.1 mg/dL Low 0.3-1.0 Alkaline Phosphatase 89 U/L N 34-104 Alt 16 U/L N 7-52 Ast 14 U/L N 13-39 Laboratory test 02/04/2016 [facility] Potassium 4.2 mmol/L N 3.5-5.[address] [place] [address] [phone] Urine 01/21/2016 [facility] Ur Microalbumin 44.0 mg/L N Microalbumin [address] (mg/L) [place] [address] [phone] Urine Creatinine 82.01 mg/dL N Urine Microalbumin/Creatinine 53.6 ug/mg High <31 Laboratory test 12/30/2015 [facility] Hemoglobin A1c 6.0 5-7 finding Drug Abuse 20 12/10/2015 [facility] Urine Amphetamine Negative ng/mL N [address] [place] [address] [phone] Urine Barbiturates Negative ng/mL N 31 Urine Benzodiazepines Negative ng/mL N 32 Urine Cocaine Negative ng/mL N 33 Urine Methadone Negative ng/mL N 34 Urine Opiates Negative ng/mL N 35 Urine Phencyclidine Negative ng/mL N Cutoff: 25 Urine Tetrahydrocannabinol Presumptive Posi <SEE NOTE> ng/mL N Cutoff: 20 36 Urine Oxycodone Presumptive Posi <SEE NOTE> ng/mL N 37 Oxycodone,Urine 12/10/2015 [facility] Oxycodone Negative ng/mL N [address] [place] [address] [phone] Oxymorphone 270 ng/mL N 39 Oxycodone Interpretation Positive. N 40 THC Confirmation 12/10/2015 [facility] Urine Carboxy 280 ng/mL N [address] [place] [address] [phone] Urine THC Interpretation Positive. N 42 Comp Metabolic Panel 08/02/2015 [facility] Sodium 136 mmol/L N 133-[address] [place] [address] [phone] Potassium 4.7 mmol/L N 3.5-5.0 Chloride 101 [...] 97.8 N >60 Egfr 125.8 N >60 43 Lipid Profile 08/02/2015 [facility] Triglycerides 72 mg/dL N 44 (Trig/Chol/HDL) [address] [place] [address] [phone] Cholesterol 111 mg/dL N 45 HDL Cholesterol 34.0 mg/dL N 46 LDL Cholesterol 63 mg/dL N 47 Laboratory test 08/02/2015 [facility] Hemoglobin A1c 6.1 % High Less than [address] (Glyco HGB) 6.0 [place] [address] [phone] Laboratory test 01/30/2015 [facility] Hemoglobin A1c 6.2 5-7 finding Comp Metabolic 01/18/2015 [facility] Sodium 136 N 133-145 [address] mmol/[place] [address] [phone] Potassium 4.2 mmol/L N 3.5-5.0 Chloride 102 [...] 91.6 N >60 Egfr 117.8 N >60 50 Lipid Profile 07/27/2014 [facility] Triglycerides 98 mg/dL N 51, 52 (Trig/Chol/HDL) [address] [place] [address] [phone] Cholesterol 144 mg/dL N 53 HDL Cholesterol 27.0 mg/dL N 54 LDL Cholesterol 97 mg/dL N 55 Comp Metabolic Panel 07/27/2014 [facility] Sodium 136 mmol/L N 133-[address] [place] [address] [phone] Potassium 4.0 mmol/L N 3.7-5.6 Chloride 102 [...] 91.6 N >60 Egfr 117.8 N >60 56 Laboratory test 07/27/2014 [facility] Hemoglobin A1c 6.4 % High Less [address] than 6.0 [place] [address] [phone] Urine 07/27/2014 [facility] Ur Microalbumin 6.0 N <30 [address] (mg/L) mg/[place] [address] [phone] Urine Creatinine 70.22 mg/dL N Urine Microalbumin/Creatinine 8.5 N Less Than 31 Ua Routine 03/12/2014 [facility] Ua Specific [place] 1.005 Ua PH 5 Ua Color yellow Ua Appera clear Ua WBC neg Ua Protein neg Ua Glucose neg Ua Ketones neg Ua Bilirubin neg Ua Urobilinogen neg Ua Nitrite neg Ua Occult Blood neg Vitamin D, 25 01/30/2014 [facility] 25-Hydroxy Vitamin 4.8 ng/ mL Hydroxy [address] D2 [place] [address] [phone] 25-Hydroxy Vitamin D3 35 ng/mL 25-Hydroxy Vitamin D Total 40 ng/mL 59 Basic Metabolic Panel 01/30/2014 [facility] Sodium 136 mmol/L 133-[address] [place] [address] [phone] Potassium 4.2 mmol/L 3.7-5.6 Chloride 100 mmol/L Low 101-111 Co2 Carbon Dioxide 27 mmol/L 22-32 Anion Gap 9 mmol/L 2-11 Glucose 87 mg/dL 70-100 Blood Urea Nitrogen 8 mg/dL 6-24 Creatinine 0.68 mg/dL 0.51-0.95 BUN/Creatinine Ratio 11.8 8-20 Calcium 9.3 mg/dL 8.6-10.3 Egfr Non- 92.0 >60 Egfr 118.3 >60 60 Urine Microalbumin 01/30/2014 [facility] Ur Microalbumin 12.0 mg /dL <30 [address] (mg/L) [place] [address] [phone] Urine Creatinine 35.77 mg/dL Urine Microalbumin/Creatinine 33.5 High Less Than 31 Laboratory test 01/30/2014 [facility] Hemoglobin A1c 5.5 5-7 finding THC Confirmation 08/07/2013 [facility] Urine THC Presumptive Posi Cutoff: [address] Screen <SEE NOTE> 20 [place] [address] [phone] Urine Carboxy THC Confirm 226 ng/mL Cutoff: 3 Urine THC Interpretation Positive. 63 Laboratory test 08/07/2013 [facility] Hemoglobin A1c 5.7 5-7 finding Comp Metabolic Panel 08/07/2013 [facility] Sodium 135 mmol/L 133-[address] [place] [address] [phone] Potassium 4.0 mmol/L 3.5-5.0 Chloride 99 mmol/L [...] Egfr Non- 88.9 >60 Egfr 114.4 >60 64 Lipid Profile 08/07/2013 [facility] Triglycerides 196 mg/dL 40-200 (Trig/Chol/HDL) [address] [place] [address] [phone] Cholesterol 152 mg/dL Less than 200 HDL Cholesterol 31 mg/dL Low 40-60 65 Cholesterol/HDL Ratio 4.9 Average High 1-4.44 LDL Cholesterol 81.8 Less Than 100 66 Drug Abuse 20 08/07/2013 [facility] Urine Amphetamine Negative ng/mL 67 Urine [address] [place] [address] [phone] Urine Barbiturates Negative ng/mL 68 Urine Benzodiazepines Negative ng/mL 69 Urine Cocaine Negative ng/mL 70 Urine Methadone Negative ng/mL 71 Urine Opiates Negative ng/mL 72 Urine Phencyclidine Negative ng/mL Cutoff: 25 Urine Propoxyphene Negative ng/mL 73 Urine Tetrahydrocannabinol Presumptive Posi <SEE NOTE> ng/mL Cutoff: 20 74 Creatinine 88.8 mg/dL Specific [place] 1.013 pH 7.0 Oxidants Negative 75 Urine Opiates Screen Negative 76 Urine Codeine Confirmation Negative ng/mL 77 Urine Hydrocodone Confirm Negative ng/mL 78 Urine Hydromorphone Confirm Negative ng/mL 79 Urine Morphine Confirm Negative ng/mL 80 Urine Oxycodone Confirm 993 ng/mL 81 Urine Opiates Interpretation See Comment 82 Vitamin D, 25 06/06/2013 [facility] 25-Hydroxy Vitamin 31 ng/mL Hydroxy [address] [address] [phone] 25-Hydroxy Vitamin D3 14 ng/mL 25-Hydroxy Vitamin D Total 45 ng/mL 83 Pthi 04/13/2013 [facility] PTH Intact 2.5 pmol/L 1.3-9.0 [place] [address] [phone] Calcium (PTH Intact) 9.5 mg/dL 8.1-9.9 Vitamin D, 25 04/13/2013 [facility] 25-Hydroxy Vitamin <4.0 ng/ mL Hydroxy [address] [address] [phone] 25-Hydroxy Vitamin D3 20 ng/mL 25-Hydroxy Vitamin D Total 20 ng/mL Abnormal 84 Laboratory test 03/08/2013 [facility] Cytology RUN DATE: [address] 03/09/ <[place] [address] NOTE> [phone] Liver Function 02/27/2013 [facility] Total Protein 7.8 g/dL 6.2-8. Panel [address] [place] [address] [phone] Albumin 4.1 g/dL 3.6-5.4 Globulin 3.7 g/dL 2-4 Albumin/Globulin Ratio 1.1 1-3 Total Bilirubin 0.4 mg/dL 0.4-1.5 Direct Bilirubin < 0.1 mg/dL Low 0.1-0.5 Indirect Bilirubin (SEE NOTE) mg/dL 0.3-1.0 86 Alkaline Phosphatase 80 U/L 30-110 Alt 17 U/L 14-54 Ast 24 U/L 12-42 Drug Abuse 20 02/27/2013 [facility] Urine Amphetamine Negative ng/mL [address] [place] [address] [phone] Urine Barbiturates Negative ng/mL 88 Urine Benzodiazepines Negative ng/mL 89 Urine Cocaine Negative ng/mL 90 Urine Methadone Negative ng/mL 91 Urine Opiates Negative ng/mL 92 Urine Phencyclidine Negative ng/mL Cutoff: 25 Urine Propoxyphene Negative ng/mL 93 Urine Tetrahydrocannabinol Negative ng/mL Cutoff: 20 94 Creatinine 16.9 mg/dL 95 Specific [place] 1.004 pH 6.3 Oxidants Negative 96 Urine Opiates Screen Negative 97 Urine Codeine Confirmation Negative ng/mL 98 Urine Hydrocodone Confirm Negative ng/mL 99 Urine Hydromorphone Confirm Negative ng/mL 100 Urine Morphine Confirm Negative ng/mL 101 Urine Oxycodone Confirm 481 ng/mL 102 Urine Opiates Interpretation See Comment 103 Lipid Profile 01/25/2013 [facility] Triglycerides 342 mg/dL High 40-200 (Trig/Chol/HDL) [address] [place] [address] [phone] Cholesterol 187 mg/dL Less than 200 HDL Cholesterol 34 mg/dL Low 40-60 104 Cholesterol/HDL Ratio 5.5 Average High 1-4.44 LDL Cholesterol 84.6 mg/dL Less Than 100 105 Comp Metabolic Panel 01/25/2013 [facility] Sodium 137 mmol/L 133-[address] [place] [address] [phone] Potassium 4.1 mmol/L 3.5-5.0 Chloride 100 mmol/L [...] Egfr Non- 106.7 >60 Egfr 137.2 >60 106 Urine Microalbumin 01/25/2013 [facility] Ur Microalbumin 4.0 mg/ L [address] (Mg/L) [place] [address] [phone] Urine Creatinine 33.0 mg/dL Urine Microalbumin/Creatinine 12.1 ug/mg Less Than 31 Drug Abuse 01/25/2013 [facility] Urine Amphetamine Negative ng/ mL 108 [address] [place] [address] [phone] Urine Barbiturates Negative ng/mL 109 Urine Benzodiazepines Negative ng/mL 110 Urine Cocaine Negative ng/mL 111 Urine Methadone Negative ng/mL 112 Urine Opiates Negative ng/mL 113 Urine Phencyclidine Negative ng/mL Cutoff: 25 Urine Propoxyphene Negative ng/mL 114 Urine Tetrahydrocannabinol Negative ng/mL Cutoff: 20 115 Creatinine 32.3 mg/dL Specific [place] 1.008 pH 6.9 Oxidants Negative 116 Urine Opiates Screen Negative 117 Urine Codeine Confirmation Negative ng/mL 118 Urine Hydrocodone Confirm Negative ng/mL 119 Urine Hydromorphone Confirm Negative ng/mL 120 Urine Morphine Confirm Negative ng/mL 121 Urine Oxycodone Confirm 233 ng/mL 122 Urine Opiates Interpretation See Comment 123 CBC Auto 01/25/2013 [facility] White Blood 11.2 10^3/uL High 4.8-10.[address] [place] [address] [phone] Red Blood Count 4.98 10^6/uL 4.0-5.4 Hemoglobin [...] Red Blood Cells % 0.2 Laboratory test 01/25/2013 [facility] Hemoglobin A1c 5.6 5-7 finding Urine Culture And 10/20/2012 [facility] Urine Culture (SEE NOTE ) [address] [place] [address] [phone] Ua Routine 10/20/2012 [facility] Ua Specific 1.010 [place] Ua PH 5 Ua Color yellow Ua Appera slightly cloudy Ua WBC trace Ua Protein trace Ua Glucose negative Ua Ketones negative Ua Bilirubin negative Ua Urobilinogen negative Ua Nitrite negative Ua Occult Blood trace Laboratory test 10/02/2012 [facility] Uric Acid 5.9 mg/dL 2.6 -7.[address] [place] [address] [phone] CBC Auto Diff 10/02/2012 [facility] White Blood 9.4 10^3/uL 4.8-10.[address] [place] [address] [phone] Red Blood Count 4.80 10^6/uL 4.0-5.4 Hemoglobin [...] Red Blood Cells % 0.1 Laboratory test 09/01/2012 [facility] Throat Culture (SEE NOTE) [address] [place] [address] [phone] Laboratory test 08/16/2012 [facility] In House Hemoglobin A1c 5.7 5-7 finding Laboratory test 06/30/2012 [facility] Potassium 4.5 mmol/L 3.5-[address] [place] [address] [phone] Laboratory test 03/29/2012 [facility] In House Hemoglobin A1c 8.3 High 5-7 finding Lipid Profile 03/28/2012 [facility] Triglyceride 348 mg/dL High 40-20 (Trig/Chol/HDL) [address] [place] [address] [phone] Cholesterol 170 mg/dL Less Than 200 126 High Density Lipoprotein 23 mg/dL Low 40-60 127 Cholesterol/HDL Ratio 7.39 AVERAGE High 1-4.44 Low Density Lipoprotein 77 mg/dL Less Than 100 128 Comp Metabolic Panel 03/28/2012 [facility] Sodium 132 mmol/L Low 135-[address] [place], [place] [id number] [phone] Potassium 4.1 mmol/L 3.5-5.0 Chloride 97 mmol/L Low 101-111 Co2 (Carbon Dioxide) 30.0 mmol/L 22-32 Anion Gap 5.0 mmol/L 2-11 129 Glucose 234 mg/dL High 70-100 BUN 8 mg/dL 6-24 Creatinine 0.6 mg/dL 0.50-1.40 One Over Creatinine 1.66 BUN/Creatinine Ratio 13.3 8-20 Calcium 8.8 mg/dL 8.1-9.9 Total Protein 6.7 GM/DL 6.2-8.1 Albumin 3.7 GM/DL 3.6-5.4 Globulin 3.0 GM/DL 2-4 Albumin/Globulin Ratio 1.2 1-3 Bilirubin Total 0.4 mg/dL 0.4-1.5 130 Alkaline Phosphatase 91 U/L 30-110 Alt (SGPT) 39 U/L 14-54 Ast (Sgot) 50 U/L High 12-42 eGFR Non- 107.2 > 60 eGFR 137.8 > 60 131 Drug Abuse 03/24/2012 [facility] Urine Ampetamines Negative ng/ mL () 132 [address] [place] [address] [phone] Urine Barbiturates Negative ng/mL () 133 Urine Benzodiazepines Negative ng/mL () 134 Urine Cocaine Negative ng/mL () 135 Urine Methadone Negative ng/mL () 136 Urine Opiates Negative ng/mL () 137 Urine Phencyclidine Negative ng/mL Cutoff: 25 Urine Propoxyphene Negative ng/mL () 138 Urine Tetrahydrocannabinol Negative ng/mL Cutoff: 20 139 Urine Opiates Screen Negative () 140 Urine Codeine By GC/MS Negative ng/mL () 141 Urine Hydrocodone By GC/MS Negative ng/mL () 142 Urine Hydromophone By GC/MS Negative ng/mL () 143 Urine Morphine By GC/MS Negative ng/mL () 144 Urine Oxycodone By GC/MS Negative ng/mL () 145 Urine Opiates Interpretation Negative. () 146 1 Desirable: <150 Borderline High: 150-199 High: 200-499 Very High: >500 2 Desirable: <200 Borderline High: 200-239 High: >239 3 Low: <40 Desirable: 40-60 High: >60 4 Desirable: <100 Near Optimal: 100-129 Borderline High: 130-159 High: 160-189 Very High: >189 5 FASTING 6 Desirable: <150 Borderline High: 150-199 High: 200-499 Very High: >500 7 Desirable: <200 Borderline High: 200-239 High: >239 8 Low: <40 Desirable: 40-60 High: >60 9 Desirable: <100 Near Optimal: 100-129 Borderline High: 130-159 High: 160-189 Very High: >189 10 Because ethnic data is not always readily [...] 5 Kidney failure <15 (or dialysis) 11 Therapeutic target for the treatment of diabetes mellitus patients is <7% HBA1C, and in selective patients <6.0%. Please refer to [employer] diabetic care guidelines for further information. 12 Because ethnic data is not always readily [...] 5 Kidney failure <15 (or dialysis) 13 Therapeutic target for the treatment of diabetes Mellitus patients is <7% HBA1C, and in selective patients <6.0%.Please refer to [employer] Diabetic care guidelines for further information. 14 Desirable <150 Borderline high 150-199 High 200-499 Very High >500 15 Desirable <200 Borderline high 200-239 High >239 16 Low <40 Desirable: 40-60 High: >60 17 Desirable: <100 mg/dL Near Optimal: 100-129 mg/dL Borderline High: 130-159 mg/dL High: 160-189 mg/dL Very High: >189 mg/dL 18 Presales Senior Specialist: [id number] 19 Because ethnic data is not always readily [...] 15-29 5 Kidney failure <15 (or dialysis) 20 Acute inflammation: >10.00 21 Critical Result LACT:2.3 Called to [id number] at: 19:15:13 by:[id number] Read back by:[id number] [facility] Severe Sepsis and Septic Shock Management Bundle Measure requires all lactic acids initially measuring >2.0 mmol/L be repeated. 22 SEE RESULT BELOW Name: JUAN FRANCISCO PAIGE : [address]: Sawyer Bolivar MD Acct: [id number] Unit: [id number] AGE: 51 Location: ED Re03/17/17 SEX: F Status: DEP ER SPEC: [id number] RASHAAD: 03/17/17 [facility] DR: David Loera MD REQ: [id number] RECD: 03/17/17 STATUS: SHAINA CH DR: [facility] Maddie Manzo MD _ SOURCE: URINE SPDESC: ORDERED: Urine Culture Procedure Result Reported Site Urine Culture Final 03/19/17- 08 ML No Growth (<1,000 CFU/mL) * ML - MAIN LAB ([facility]) . END OF REPORT * ML=Testing performed at Main Lab DEPARTMENT OF PATHOLOGY, [address] [place] [address] Hugo Camacho M.D. Director [facility] # [id number] 23 Desirable <150 Borderline high 150-199 High 200-499 Very High >500 24 Desirable <200 Borderline high 200-239 High >239 25 Low <40 Desirable: 40-60 High: >60 26 Desirable: <100 mg/dL Near Optimal: 100-129 mg/dL Borderline High: 130-159 mg/dL High: 160-189 mg/dL Very High: >189 mg/dL 27 Therapeutic target for the treatment of diabetes Mellitus patients is <7% HBA1C, and in selective patients <6.0%.Please refer to [employer] Diabetic care guidelines for further information. 28 Because ethnic data is not always readily [...] 15-29 5 Kidney failure <15 (or dialysis) 29 It is recognized that currently available assays [...] 95% confidence interval of 99.78 to 99.96%. 30 REFERENCE VALUE Cutoff: 500 31 REFERENCE VALUE Cutoff: 200 32 REFERENCE VALUE Cutoff: 200 33 REFERENCE VALUE Cutoff: 150 34 REFERENCE VALUE Cutoff: 150 35 REFERENCE VALUE Cutoff: 300 36 Presumptive Positive Drug confirmation to follow. Presumptive Positive means that the screening method is positive, but the test needs to be run by a confirmatory method before being finalized. ADDITIONAL INFORMATION This report is intended for use in clinical monitoring or management of patients. It is not intended for use in employment-related testing. 37 Presumptive Positive Drug confirmation to follow. Presumptive Positive means that the screening method is positive, but the test needs to be run by a confirmatory method before being finalized. REFERENCE VALUE Cutoff: 100 ADDITIONAL INFORMATION This report is intended for use in clinical monitoring or management of patients. It is not intended for use in employment-related testing. Test Performed by: [facility] [place] [address] Outdoor Landscape Architect: David Logan II, M.D., Ph.D. 38 REFERENCE VALUE Cutoff: 100 39 REFERENCE VALUE Cutoff: 100 40 ADDITIONAL INFORMATION This report is intended for use in clinical monitoring and management of patients. It is not intended for use in employment-related testing. Test Performed by: [facility] [place] [address] Outdoor Landscape Architect: David Logan II, M.D., Ph.D. 41 REFERENCE VALUE Cutoff: 3.0 42 ADDITIONAL INFORMATION This report is intended for use in clinical monitoring and management of patients. It is not intended for use in employment-related testing. Test Performed by: [facility] - [address] [address] Outdoor Landscape Architect: David Logan II, M.D., Ph.D. 43 Because ethnic data is not always readily [...] 15-29 5 Kidney failure <15 (or dialysis) 44 Desirable <150 Borderline high 150-199 High 200-499 Very High >500 45 Desirable <200 Borderline high 200-239 High >239 46 Low <40 Desirable: 40-60 High: >60 47 Desirable: <100 mg/dL Near Optimal: 100-129 mg/dL Borderline High: 130-159 mg/dL High: 160-189 mg/dL Very High: >189 mg/dL 48 Therapeutic target for the treatment of diabetes Mellitus patients is <7% HBA1C, and in selective patients <6.0%.Please refer to [employer] Diabetic care guidelines for further information. 49 FASTING 10 HOUR 50 Because ethnic data is not always readily [...] 15-29 5 Kidney failure <15 (or dialysis) 51 PT IS FASTING 52 Desirable <150 Borderline high 150-199 High 200-499 Very High >500 53 Desirable <200 Borderline high 200-239 High >239 54 Low <40 Desirable: 40-60 High: >60 55 Desirable <100 Near Optimal 100-129 Borderline high 130-159 High 160-189 Very High >189 56 Because ethnic data is not always readily [...] 15-29 5 Kidney failure <15 (or dialysis) 57 Therapeutic target for the treatment of diabetes Mellitus patients is <7% HBA1C, and in selective patients <6.0%.Please refer to [employer] Diabetic care guidelines for further information. 58 Microalbuminuria in a random sample is defined as: Microalbumin/Creatinine ratio of 30-299 ug/mg. 59 -- REFERENCE VALUE -- 25-HYDROXY D TOTAL (D2+D3) Optimum levels in the healthy population are 20-50, patients with bone disease may benefit from higher levels within this range. Test Performed by: [facility] - [address] [address] Outdoor Landscape Architect: Param Richardson III, M.D. 60 Because ethnic data is not always [...] as: Microalbumin/Creatinine ratio of 30-299 ug/mg. 62 Presumptive Positive 63 This report is intended for use in clinical monitoring and management of patients. It is not intended for use in employment-related testing. Test Performed by: [place] [address] Outdoor Landscape Architect: Param Richardson III, M.D. 64 Because ethnic [...] 5 Kidney failure <15 (or dialysis) 65 HDL Interpretation: Undesirable: High Risk: Less than 40 mg/dL Desirable: Low Risk: Greater than 60 mg/dL 66 LDL Interpretation: Low Risk Optimal Level: LDL Less than 100 mg/dL Near or Above Optimal: LDL 100-129 mg/dL Borderline High Risk: LDL 130-159 mg/dL High Risk: LDL 160-189 mg/dL Very High Risk: LDL Greater than 189 mg/dL 67 -- REFERENCE VALUE -- Cutoff: 500 68 -- REFERENCE VALUE -- Cutoff: 200 69 -- REFERENCE VALUE -- Cutoff: 200 70 -- REFERENCE VALUE -- Cutoff: 150 71 -- REFERENCE VALUE -- Cutoff: 300 72 -- REFERENCE VALUE -- Cutoff: 300 73 -- REFERENCE VALUE -- Cutoff: 300 74 Presumptive Positive Drug confirmation to follow. Presumptive Positive means that the screening method is positive, but the test needs to be run by a confirmatory method before being finalized. This report is intended for use in clinical monitoring or management of patients. It is not intended for use in employment-related testing. 75 Test Performed by: [address] [address] Outdoor Landscape Architect: Param Richardson III, M.D. 76 -- REFERENCE VALUE -- Cutoff: 300 77 -- REFERENCE VALUE -- Cutoff: 100 78 -- REFERENCE VALUE -- Cutoff: 100 79 -- REFERENCE VALUE -- Cutoff: 100 80 -- REFERENCE VALUE -- Cutoff: 100 81 -- REFERENCE VALUE -- Cutoff: 100 82 Positive. Discrepancy noted between immunoassay result and GC/MS result. The GC/MS result is the definitive result. This report is intended for use in clinical monitoring and management of patients. It is not intended for use in employment-related testing. Test Performed by: [address] [address] Outdoor Landscape Architect: Param Richardson III, M.D. 83 -- REFERENCE VALUE -- 25-HYDROXY D TOTAL (D2+D3) Optimum levels in the normal population are 25-80 Test Performed by: [address] [address] Outdoor Landscape Architect: Param Richardson III, M.D. 84 Interpretation: 10-24 (mild to moderate deficiency) -- REFERENCE VALUE -- 25-HYDROXY D TOTAL (D2+D3) Optimum levels in the normal population are 25-80 Test Performed by: [address] [address] Outdoor Landscape Architect: Param Richardson III, M.D. 85 RUN DATE: 03/09/13 [facility] LAB LIVE PAGE 1 RUN TIME: 5528 [address]26 [place], [place] [address] Specimen Inquiry Name: JUAN FRANCISCO PAIGE : [address]: Maddie Manzo MD Acct: [id number] Unit: [id number] AGE: 47 Location: [facility] Re03/08/13 SEX: F Status: REG REF SPEC: [id number] RASHAAD: 03/08/13-1357 [facility] DR: Maddie Manzo MD REQ: [id number] RECD: 03/08/135523 STATUS: SOUT _ ORDERED: IMAGE ANALYSIS FINAL [...] (signature on file) ALEX Shea (ASCP) 03/09/13 1575 This Pap test was evaluated with the assistance of the [employer] Test Imaging System. Due to cytologic findings at the fire operations forester microscope, comprehensive manual rescreening by a Cq Developer may be required. The Pap Smear is [...] performed at Main Lab DEPARTMENT OF PATHOLOGY, [address] [place] [address] Hugo Camacho M.D. Director [facility] Permit #[id number] 86 UNABLE TO CALCULATE IND.BILI D.BILI IS <0.1 87 -- REFERENCE VALUE -- Cutoff: 500 88 -- REFERENCE VALUE -- Cutoff: 200 89 -- REFERENCE VALUE -- Cutoff: 200 90 -- REFERENCE VALUE -- Cutoff: 150 91 -- REFERENCE VALUE -- Cutoff: 300 92 -- REFERENCE VALUE -- Cutoff: 300 93 -- REFERENCE VALUE -- Cutoff: 300 94 This report is intended for use in clinical monitoring or management of patients. It is not intended for use in employment-related testing. 95 Specimen unusually dilute. 96 Test Performed by: [address] [address] Outdoor Landscape Architect: Param Richardson III, M.D. 97 -- REFERENCE VALUE -- Cutoff: 300 98 -- REFERENCE VALUE -- Cutoff: 100 99 -- REFERENCE VALUE -- Cutoff: 100 100 -- REFERENCE VALUE -- Cutoff: 100 101 -- REFERENCE VALUE -- Cutoff: 100 102 -- REFERENCE VALUE -- Cutoff: 100 103 Positive. Discrepancy noted between immunoassay result and GC/MS result. The GC/MS result is the definitive result. This report is intended for use in clinical monitoring and management of patients. It is not intended for use in employment-related testing. Test Performed by: [address] [address] Outdoor Landscape Architect: Param R. Cockerill, III, M.D. 104 HDL Interpretation: Undesirable: High Risk: Less than 40 MG/DL Desirable: Low Risk: Greater than 60 MG/DL 105 LDL Interpretation: Low Risk Optimal Level: LDL Less than 100 MG/DL Near or Above Optimal: LDL 100-129 MG/DL Borderline High Risk: LDL 130-159 MG/DL High Risk: LDL 160-189 MG/DL Very High Risk: LDL Greater than 189 MG/DL 106 Because ethnic data is not always readily [...] 15-29 5 Kidney failure <15 (or dialysis) 107 Microalbuminuria in a random sample is defined as: Microalbumin/Creatinine ratio of 30-299 ug/mg. 108 -- REFERENCE VALUE -- Cutoff: 500 109 -- REFERENCE VALUE -- Cutoff: 200 110 -- REFERENCE VALUE -- Cutoff: 200 111 -- REFERENCE VALUE -- Cutoff: 150 112 -- REFERENCE VALUE -- Cutoff: 300 113 -- REFERENCE VALUE -- Cutoff: 300 114 -- REFERENCE VALUE -- Cutoff: 300 115 This report is intended for use in clinical monitoring or management of patients. It is not intended for use in employment-related testing. 116 Test Performed by: [address] [address] Outdoor Landscape Architect: Param Richardson III, M.D. 117 -- REFERENCE VALUE -- Cutoff: 300 118 -- REFERENCE VALUE -- Cutoff: 100 119 -- REFERENCE VALUE -- Cutoff: 100 120 -- REFERENCE VALUE -- Cutoff: 100 121 -- REFERENCE VALUE -- Cutoff: 100 122 -- REFERENCE VALUE -- Cutoff: 100 123 Positive. Discrepancy noted between immunoassay result and GC/MS result. The GC/MS result is the definitive result. This report is intended for use in clinical monitoring and management of patients. It is not intended for use in employment-related testing. Test Performed by: [facility] - [address] [address] Outdoor Landscape Architect: Param Richardson III, M.D. 124 RUN DATE: 10/23/12 [facility] LAB LIVE PAGE 1 RUN TIME: [address] [place] [address] Specimen Inquiry Name: JUAN FRANCISCO PAIGE : [address]: Maddie Manzo MD Acct: [id number] Unit: [id number] AGE: 47 Location: [facility] Re10/20/12 SEX: F Status: REG REF SPEC: [id number] RASHAAD: 10/20/12 [facility] DR: Maddie Manzo MD REQ: [id number] RECD: 10/20/124460 STATUS: COMP _ SOURCE: URINE SPDESC: ORDERED: Urine Culture QUERIES: Medent Number [id number] Procedure Result Verified Site Urine Culture Final 10/23/12- 0839 ML Organism 1 ESCHERICHIA COLI Bon[place]arte Count 25-50,000 (Moderate) CFU/ML Organism 2 NORMAL DEISY [place] Count 1-10,000 (Few) CFU/ML 1. ESCHERICHIA COLI [...] performed at Main Lab DEPARTMENT OF PATHOLOGY, [facility] [place], [place] [address] Hugo Camacho M.D. Director [facility] Permit #[id number] RUN DATE: 10/23/12 [facility] LAB LIVE PAGE 2 RUN TIME: [address] [place] [address] Specimen Inquiry Patient: JUAN FRANCISCO PAIGE [id number] (Continued) Specimen: [id number] Collected: 10/20/12 Received: 10/20/12 (Continued) Procedure Result Verified Site Urine Culture Final (continued) * These antibiotics are not available in the [facility] Formulary Contact the Microbiology Department for any additional antibiotic reporting. END OF REPORT * ML=Testing performed at Main Lab DEPARTMENT OF PATHOLOGY, [address] [place] [address] Hugo Camacho M.D. Director [facility] Permit #[id number] RUN DATE: 09/04/12 [facility] LAB LIVE PAGE 1 RUN TIME: 4890 [address] [place], [place] [address] Specimen Inquiry Name: JUAN FRANCISCO PAIGE : [address]: Maddie Manzo MD Acct: [id number] Unit: [id number] AGE: 47 Location: [facility] Re09/01/12 SEX: F Status: REG REF SPEC: [id number] RASHAAD: 09/01/12 [facility] DR: Maddie Manzo MD REQ: [id number] RECD: 09/01/12 STATUS: COMP _ SOURCE: THROAT SPDESC: ORDERED: Throat Culture QUERIES: Medent Number [id number] Procedure Result Verified Site Throat Culture Final 09/04/12- 1246 ML Organism 1 NORMAL DEISY Quantity 3+ Throat cultures are clinically indicated to detect the presence of group A strep, arcanobacterium and yeast. END OF REPORT * ML=Testing performed at Main Lab DEPARTMENT OF PATHOLOGY, [address] [place] [address] Hugo Camacho M.D. Director [facility] Permit #[id number] CHOLESTEROL INTERPRETATION: Desirable: Less than 200 MG/DL Borderline-High Risk: 200-239 MG/DL High-Risk: 240 MG/DL and over 127 HDL INTERPRETATION: Undesirable: High Risk: Less than 40 MG/DL Desirable: Low Risk: Greater than 60 MG/DL 128 LDL INTERPRETATION: Low Risk Optimal Level: LDL Less than 100 MG/DL Near or Above Optimal: LDL 100-129 MG/DL Borderline High Risk: LDL 130-159 MG/DL High Risk: LDL 160-189 MG/DL Very High Risk: LDL Greater than 189 MG/DL 129 Anion gap measurement may be of limited value in the presence of any alkalosis, especially in a combined acid base disorder. . 130 A metabolite of Naproxen, O-desmethylnaproxen, has been shown to interfere with the [place] method for measuring total bilirubin. Samples from patients who have taken Naproxen have shown spurious elevation in total bilirubin levels. 131 Because ethnic data is not always readily [...] 15-29 5 Kidney failure <15 (or dialysis) 132 -- REFERENCE VALUE -- Cutoff: 500 133 -- REFERENCE VALUE -- Cutoff: 200 134 -- REFERENCE VALUE -- Cutoff: 200 135 -- REFERENCE VALUE -- Cutoff: 300 136 -- REFERENCE VALUE -- Cutoff: 300 137 -- REFERENCE VALUE -- Cutoff: 300 138 -- REFERENCE VALUE -- Cutoff: 300 139 This report is intended for use in clinical monitoring or management of patients. It is not intended for use in employment-related testing. Test Performed by: [facility] D[facility] of Lab Med and Pathology [address] [place] [address] Outdoor Landscape Architect: Param Richardson III, M.D. 140 -- REFERENCE VALUE -- Cutoff: 300 141 -- REFERENCE VALUE -- Cutoff: 100 142 -- REFERENCE VALUE -- Cutoff: 100 143 -- REFERENCE VALUE -- Cutoff: 100 144 -- REFERENCE VALUE -- Cutoff: 100 145 -- REFERENCE VALUE -- Cutoff: 100 146 This report is intended for use in clinical monitoring and management of patients. It is not intended for use in employment-related testing. Test Performed by: [facility] Med [facility] Pathology [address] [place] [address] Outdoor Landscape Architect: Param Richardson III, M.D. Procedures Date Code Description Status 2018 [id number] Diabetic Retinal Eye Exam Completed 04/11/2018 34643 Inject/Drain Joint/Bursa Major W/O US Completed 12/30/2017 10774 Diffusing Capacity Completed 12/30/2017 94401 Plethysmography Determination Lung Volumes & Per Completed Airway Resist 12/30/2017 68125 Pulmonary Function><Bronchodil Completed 12/30/2017 [id number] Mammogram Completed 09/01/2017 96276 Inhalation TX For Acute Airway Obstruction Completed W/Nebulizer/Inhaler 03/30/2017 50329 ECHO Transthoracic, Real-Time 2D With Doppler And Completed Color Flow 02/15/2017 72734 EKG Tracing & Interpretation Completed 02/11/2016 [id number] Bone Mineral Density Test Completed 08/26/2015 [id number] Diabetic Foot Exam Completed 07/02/2015 [id number] Mammogram Completed 03/13/2015 83504 Pulmonary Function><Bronchodil Completed 03/13/2015 95711 Plethysmography Determination Lung Volumes & Per Completed Airway Resist 12/25/2014 [id number] Mammogram Completed 06/22/2014 [id number] Mammogram Completed 04/25/2014 [id number] Colonoscopy Completed 03/17/2013 [id number] Bone Mineral Density Test Completed 03/06/2013 [id number] Diabetic Foot Exam Completed 08/16/2012 92068 EKG Tracing & Interpretation Completed 05/31/2012 [id number] Bone Mineral Density Test Completed 05/31/2012 20855542 Mammogram Completed Encounters Type Date Location Provider Dx Diagnosis Office Visit 05/02/2019 Pul[facility]ology And Bety Diallo, G47.33 Obstructive sleep 10:30a [facility], RN, STAFFING RECRUITER-BC apnea (adult) [facility] (pediatric) F17.210 Nicotine dependence, cigarettes, uncomplicated E66.9 Obesity, unspecified Office Visit 04/10/2019 8:30a [facility] Tamia Odom, M25.552 Pain in left Of C.M.A. M.D. hip M16.12 Unilateral primary osteoarthritis, left hip Office Visit 07/28/2018 9:40a [facility] Internal [place] E11.9 Type 2 [place] Long M.D. mellitus without [address] complications E78.1 Pure hyperglyceridemia I10 Essential (primary) hypertension B35.4 Tinea corporis J44.9 Chronic obstructive pulmonary disease, unspecified Office Visit 07/14/2018 8:40a [facility] [place] B35.4 Tinea corporis Diana Long M.D. [address] Office Visit 04/26/2018 9:40a [facility] Internal [place] E11.9 Type 2 diabetes Diana Long M.D. mellitus without [address] complications I10 Essential (primary) hypertension E78.1 Pure hyperglyceridemia K21.9 Gastro-esophageal reflux disease without esophagitis J30.2 Other seasonal allergic rhinitis Office Visit 04/11/2018 1:30p [facility] [place] F M25.562 Pain in left Services [facility] Tod Trinidad MD knee M71.22 Synovial cyst of popliteal space [[place]], left knee M17.12 Unilateral primary osteoarthritis, left knee Office Visit 03/30/2018 [facility] G47.33 Obstructive sleep 10:30a [facility], RN, apnea (adult) [facility] STAFFING RECRUITER-BC (pediatric) F17.201 Nicotine dependence, unspecified, in remission Z68.41 Body mass index (BMI) 40.0-44.9, adult Office Visit 03/25/2018 11:20a [facility] Internal Jefferson Long, J06.9 Acute upper Medicine - MJonathon respiratory Suite R infection, unspecified M79.662 Pain in left lower leg Office Visit 01/13/2018 8:40a [facility] Krystin Paulino E11.9 Type 2 diabetes Diana Long M.D. mellitus without Suite R complications J44.1 Chronic obstructive pulmonary disease w (acute) exacerbation K21.9 Gastro-esophageal reflux disease without esophagitis E78.1 Pure hyperglyceridemia I10 Essential (primary) hypertension Office Visit 11/19/2017 9:00a [facility] Internal Jefferson Long, Z00.01 Encounter for Medicine - M.DAngel general adult Suite R medical exam w abnormal findings E11.9 Type 2 diabetes mellitus without complications J44.1 Chronic obstructive pulmonary disease w (acute) exacerbation R18.8 Other ascites K21.9 Gastro-esophageal reflux disease without esophagitis J06.9 Acute upper respiratory infection, unspecified F17.210 Nicotine dependence, cigarettes, uncomplicated Z12.31 Encntr screen mammogram for malignant neoplasm of breast Office Visit 09/07/2017 3:00p [facility] Krystin Paulino J06.9 Acute upper Medicine Wallace Long M.D. respiratory Suite R infection, unspecified Office Visit 09/01/2017 2:40p [facility] Maddie Manzo J44.1 Chronic Internal MJonathon obstructive Medicine-Arrow[facility] pulmonary disease ood w (acute) exacerbation J06.9 Acute upper respiratory infection, unspecified F17.210 Nicotine dependence, cigarettes, uncomplicated [facility] E11.9 Type 2 diabetes Visit 10:10a Ashvin Manzo M.D. mellitus without complications E78.1 Pure hyperglyceridemia R25.2 Cramp and spasm F17.210 Nicotine dependence, cigarettes, uncomplicated Z12.31 Encntr screen mammogram for malignant neoplasm of breast Office [facility] K59.03 Drug induced Visit 8:50a Ashvin Manzo M.D. constipation R01.1 Cardiac murmur, unspecified Z71.6 Tobacco abuse counseling Office Visit 03/24/2017 [facility]ety G47.33 Obstructive sleep 8:45a [facility], RN, apnea (adult) [facility] STAFFING RECRUITER-BC (pediatric) E66.9 Obesity, unspecified R00.8 Other abnormalities of heart beat F17.210 Nicotine dependence, cigarettes, uncomplicated [facility] E11.9 Type 2 diabetes Visit 11:50a sAhvin Manzo M.D. mellitus without complications E78.2 Mixed hyperlipidemia I10 Essential (primary) hypertension Z71.6 Tobacco abuse counseling Office Visit 09/29/2016 Orthopedic Philipp [id number] Disp fx of prox 11:00a [facility] Arm[facility] phalanx of r less C.M.A. toe(s), 7thD Office Visit 08/27/2016 Orthopedic Philipp [id number] Disp fx of prox 11:00a [facility] Armijo phalanx of r less C.M.A. toe(s), 7thD Office Visit 08/06/2016 Orthopedic Philipp S92.511A Disp fx of 9:00a [facility] Armijo proximal phalanx C.M.A. of right lesser toe(s), init Office Visit [facility]/23[facility] Maddie I10 Essential 11:50a Krystin Manzo M.D. (primary) [facility] hypertension od Z71.6 Tobacco abuse counseling Office Visit 07/22/2016 [facility] Bety G47.33 Obstructive sleep 11:45a [facility], RN, apnea (adult) [facility] STAFFING RECRUITER-BC (pediatric) E66.9 Obesity, unspecified Office Visit 06/30/2016 10:50a [facility] Internal Maddie E11.9 Type 2 diabetes Diana Manzo M.D. mellitus without Ccmob complications M79.671 Pain in right foot I10 Essential (primary) hypertension F17.210 Nicotine dependence, cigarettes, uncomplicated Office Visit 04/09/2016 1:15p Pulmonology And Nabil BAEZA G47.33 Obstructive sleep [facility] Be[facility] apnea (adult) [facility] (pediatric) Office Visit 02/04/2016 9:00a [facility] Internal Nurse Visit C Z11.59 [facility] for other viral diseases Z11.4 Encounter for screening for human immunodeficiency virus E78.1 Pure hyperglyceridemia I10 Essential (primary) hypertension E87.6 Hypokalemia Office Visit 01/30/2016 1:30p [facility]ology [facility] Nabil BAEZA G47.33 Obstructive sleep [facility] apnea (adult) [facility] (pediatric) Office Visit 01/21/2016 11:10a [facility] Internal Maddie Z00.00 Encntr for Medicine - Annalisa Manzo M.D. general adult medical exam w/o abnormal findings I10 Essential (primary) hypertension M85.862 Oth disrd of bone density and structure, left lower leg Office Visit 12/30/2015 11:50a [facility] Internal Maddie E11.9 Type 2 diabetes Diana Manzo M.D. mellitus without Ccmob complications E78.1 Pure hyperglyceridemia B86 Scabies M47.896 Other spondylosis, lumbar region E87.6 Hypokalemia Office Visit 12/10/2015 11:50a [facility] Internal Maddie Manzo M54.5 Low back pain Medicine - Annalisa Villar B86 Scabies G47.30 Sleep apnea, unspecified Office Visit 09/12/2015 10:10a [facility] Internal Maddie Manzo, J01.80 Other acute Medicine - Annalisa Villar sinusitis J44.1 Chronic obstructive pulmonary disease w (acute) exacerbation Office Visit 08/05/2015 1:10p [facility] Internal Maddie 250.00 Diabetes Mellitus Medicine - Annalisa Manzo M.D. W/O Compl Type II Or Unspec Controlled 272.1 Hypertriglyceridemia Pure 715.09 Osteoarthrosis Generalized Multiple Sites 110.1 Dermatophytosis Nail Office Visit 05/21/2015 10:30a [facility] Internal Nurse Visit A 401.9 Hypertension Unspec [facility] 05/14/2015 10:50a [facility] Internal Maddie 461.8 Sinusitis Acute Medicine Wallace Manzo M.D. Other Ccmob 477.9 Rhinitis Allergic Cause Unspec 845.00 Sprains & Strains Ankle Unspec Site 333.94 Restless Leg Syndrome 401.9 Hypertension Unspec Office Visit 04/01/2015 10:10a [facility] Internal Maddie Jovany, 496 COPD [facility] Obstruction Chronic Not Class Elsewhere 305.1 Tobacco Use Disorder V76.0 Screening Malignant Neoplasm Respiratory Organs V03.82 Streptococcus Pneumoniae Vaccination Spec Other Office Visit 02/20/2015 9:50a [facility] Internal Maddie Jovany, 477.9 Rhinitis Diana Fang M.D. Allergic Cause Unspec 305.1 Tobacco Use Disorder Office Visit 01/30/2015 2:30p [facility] Internal Maddie Jovany, 461.8 Sinusitis [facility] Other 250.00 Diabetes Mellitus W/O Compl Type II Or Unspec Controlled 496 COPD Airway Obstruction Chronic Not Class Elsewhere 715.09 Osteoarthrosis Generalized Multiple Sites Office Visit 09/26/2014 10:30a [facility] Internal Maddie 715.09 Osteoarthrosis Diana Manzo M.D. Generalized Multiple Ccmob Sites V04.81 Need For Prophylactic Vaccination & Inoculation/Influenza 305.1 Tobacco Use Disorder Office Visit 08/02/2014 2:10p [facility] Internal Maddie 250.00 Diabetes Mellitus Diana Manzo M.D. W/O Compl Type II Or Unspec Controlled 272.1 Hypertriglyceridemia Pure 715.09 Osteoarthrosis Generalized Multiple Sites Office Visit 03/12/2014 1:10p [facility] Internal Maddie V70.0 Examination Diana Manzo M.D. General Medical Routine AT [facility] 788.1 Dysuria 112.9 Candidiasis Unspec Site 305.1 Tobacco Use Disorder V76.41 Screening Malignant Neoplasm Rectum V76.10 Screening For Malignant Neoplasm Breast 995.0 Other Anaphylactic Reaction Office Visit 01/30/2014 1:50p [facility] Internal Maddie 250.00 Diabetes Mellitus Diana Manzo M.D. W/O Compl Type II Or Unspec Controlled 401.1 Hypertension Benign 305.1 Tobacco Use Disorder 715.09 Osteoarthrosis Generalized Multiple Sites 268.9 Vitamin D Deficiency Unspec Office Visit 09/14/2013 [facility] Internal Maddie 272.1 Hypertriglyceridemia Pure 11:50a Diana Manzo M.D. Ccmob 305.22 Cannabis Abuse Episodic 715.09 Osteoarthrosis Generalized Multiple Sites V04.81 Need For Prophylactic Vaccination & Inoculation/Influenza V65.42 Counseling On Substance Use & Abuse Office Visit 08/07/2013 10:30a [facility] Internal Maddie 250.00 Diabetes Mellitus Diana Manzo M.D. W/O Compl Type II Or Unspec Controlled 715.09 Osteoarthrosis Generalized Multiple Sites V16.49 Family History Malignant Neoplasm Other 305.1 Tobacco Use Disorder 790.21 Impaired Fasting Glucose Office Visit 07/05/2013 2:30p [facility] Internal Maddie 112.1 Candidiasis The Diana Manzo M.D. Vulva & Vagina 715.09 Osteoarthrosis Generalized Multiple Sites Office Visit 06/06/2013 1:50p [facility] Internal Maddie 715.09 Osteoarthrosis Diana Manzo M.D. Generalized Multiple Ccmob Sites 268.9 Vitamin D Deficiency Unspec Office Visit 03/08/2013 1:10p [facility] Internal Maddie V72.31 Routine Doorperson Or Luggage Porter Diana Manzo M.D. Examination Ccmob V76.19 Screening Breast Exam Malignant Neoplasms Other 112.3 Candidiasis Skin & Nails 305.1 Tobacco Use Disorder 995.0 Other Anaphylactic Reaction V76.43 Screening Malignant Neoplasm Skin 781.91 Loss Of Height V76.12 Screening Mammogram Malig Fabian Other Office Visit 02/27/2013 10:30a [facility] Internal Maddie 715.09 Osteoarthrosis Diana Manzo M.D. Generalized Multiple Ccmob Sites 272.1 Hypertriglyceridemia Pure Office Visit 01/25/2013 10:10a [facility] Internal Maddie 250.00 Diabetes Mellitus Diana Manzo M.D. W/O Compl Type II Or Unspec Controlled 272.1 Hypertriglyceridemia Pure 305.1 Tobacco Use Disorder 401.9 Hypertension Unspec 715.09 Osteoarthrosis Generalized Multiple Sites V16.49 Family History Malignant Neoplasm Other V03.82 Streptococcus Pneumoniae Vaccination Spec Other Office Visit 12/27/2012 11:50a [facility] Internal Maddie 715.09 Osteoarthrosis Diana Manzo M.D. Generalized Multiple Ccmob Sites 477.9 Rhinitis Allergic Cause Unspec Office Visit 11/03/2012 10:10a [facility] Internal Maddie Manzo, 616.3 Abscess [facility] Bartholins Gland 112.1 Candidiasis The Vulva & Vagina Office Visit 10/20/2012 10:50a [facility] Internal Maddie Manzo, 599.0 UTI Urinary [facility]ract [facility] Infection Site Not Spec 715.09 Osteoarthrosis Generalized Multiple Sites Office Visit 09/29/2012 11:50a [facility] Internal Maddie 715.09 Osteoarthrosis Diana Manzo M.D. Generalized Multiple Ccmob Sites 110.1 Dermatophytosis Nail 278.01 Obesity Morbid Office Visit 09/01/2012 9:30a [facility] Internal Maddie Manzo, 462 Pharyngitis Acute Medicine - Annalisa Villar 715.09 Osteoarthrosis Generalized Multiple Sites Office Visit 08/16/2012 9:50a [facility] Internal Maddie 250.00 Diabetes Mellitus Medicine - Annalisa Manzo M.D. W/O Compl Type II Or Unspec Controlled 466.0 Bronchitis Acute 564.00 Constipation Unspecified 401.9 Hypertension Unspec 272.1 Hypertriglyceridemia Pure 715.09 Osteoarthrosis Generalized Multiple Sites 305.1 Tobacco Use Disorder V04.81 Need For Prophylactic Vaccination & Inoculation/Influenza Office Visit 08/02/2012 10:10a [facility] Internal Maddie Manzo, 466.0 Bronchitis Acute Medicine - Annalisa Villar 724.2 Lumbago 715.09 Osteoarthrosis Generalized Multiple Sites 564.00 Constipation Unspecified 455.6 Hemorrhoids Unspec W/O Complication Office Visit 07/26/2012 10:30a [facility] Internal Maddie 455.6 Hemorrhoids Unspec Medicine Wallace Manzo M.D. W/O Complication Ccmob 564.00 Constipation Unspecified Office Visit 06/30/2012 3:10p [facility] Internal Medicine Maddie Manzo, 724.2 Lumbago - Annalisa Villar 715.98 Osteoarthrosis Unspec Genlzd Or Localized Other Spec Sites 276.7 Hyperpotassemia 788.33 Incontinence Mixed (Male) (Female) Office Visit 06/09/2012 9:45a [facility] Internal Maddie 715.09 Osteoarthrosis Diana Manzo M.D. [facility]ized Multiple [facility] 724[facility]2 Lumbago 788.33 Incontinence Mixed (Male) (Female) Office Visit 05/26/2012 9:00a [facility] Internal Maddie V72.31 Routine Doorperson Or Luggage Porter Diana Manzo M.D. Examination Ccmob 305.1 Tobacco Use Disorder 724.2 Lumbago 788.33 Incontinence Mixed (Male) (Female) V76.19 Screening Breast Exam Malignant Neoplasms Other 781.91 Loss Of Height V06.1 Becxteegsu-Prthlrv-Jgajfoxw Combined (DTaP) Office Visit 04/25/2012 9:00a [facility] Internal Maddie Manzo, 496 COPD Airway Medicine - Annalisa Villar Obstruction Chronic Not Class Elsewhere 305.1 Tobacco Use Disorder 250.02 Diabetes Mellitus W/O Compl Type II Or Unspec Type Uncontrol Office Visit 03/29/2012 9:45a [facility] Internal Maddie Manzo, 250.02 Diabetes [facility] Mellitus W/O Compl Type II Or Unspec Type Uncontrol 272.1 Hypertriglyceridemia Pure 278.01 Obesity Morbid 790.21 Impaired Fasting Glucose Office Visit 03/24/2012 9:00a [facility] Internal Maddie 401.9 Hypertension Unspec Diana Manzo M.D. Ccmob 278.00 Obesity Unspec 715.09 Osteoarthrosis Generalized Multiple Sites 724.2 Lumbago 790.21 Impaired Fasting Glucose 305.1 Tobacco Use Disorder 496 COPD Airway Obstruction Chronic Not Class Elsewhere Plan of Treatment Future Appointment(s):06/14/2019 8:30 am - Tamia Odom M.D. at [facility]06/01/2019 11:15 am - BHUPENDRA Page at [facility]06/01/2019 11:15 am - JONO Romero at [facility]06/01/2019 11:15 am - JONO Calvo at [facility]05/26/2019 1:00 pm - [facility] Schedule at [facility]05/01/2020 9:15 am - Bety Diallo DNP, RN, STAFFING RECRUITER-BC at [facility]06/01/2019 11:15 am - Tamia Odom M.D. at [facility]05/15/2019 - Tamia Odom M.D.M25.552 Pain in left hipFollow up:Follow up : 2 weeks after lzxncvaY22.12 Unilateral primary osteoarthritis, left hip
--- OUTSIDE RECORDS SUMMARY | 2019-06-01 08:50 | XMS REPORT | Continuity of Care Document ---
:1965 External Reference #:[id number] Author Name VirginiaEan saley Care Team Providers Name Role Phone Carleen Murrieta M.D. Primary Care Physician Unavailable Payers Date Identification Numbers Payment Provider Subscriber Effective: 2012 Policy Number: [id number] Jonathan Juan Francisco Paige Group Name: [id number] [address] PayID: [id number] [place] [address] Advance Directives Type Date Description Status Comment [...] Obesity Bety Diallo DNP, RN, Onset: 07/22/2016 [employer] OF [employer]BC Type 2 diabetes mellitus Jefferson Long M.D. [...] Recreational Drug Use marihuana Smoking Status Reviewed: 05/02/19 Heavy tobacco smoker (more than 10 cigarettes/day) [...] walker with 1units Z47.1 Tamia Odom, 04/19/2019 [facility] seat dx: s/p left M.D. hip replacement; left hip OA Toilet Seat Elevator s/p left hip 1units Z47.1 Tamia Odom, 04/19/2019 replacement M.D. [facility] Cane standard adjustable 1units Tamia Odom, 04/10/2019 [facility] height cane. dx: M.D. left hip OA Ketoconazole apply twice a day as 120units B35.4 Jewett 07/28/2018 2% Cream needed Aurea Long Freestyle Lite Test test BS 2 times a 100units E11.9 Jewett 07/15/2018 day and prn [place], Strips M.D. Calcium Take One Tablet By 90tabs [facility] 01/31/2018 Carbonate-Vitamin D Mouth Every Day Aurea Manzo [id number] Tablets Omeprazole Take 1 Capsule By 30caps K21.9 Jewett 11/19/2017 40mg Mouth In The Morning Mercedes Capsules DR 1 Hour Before Eating M.DAngel Nebulizer every 4-6 hrs as 1units J44.1 [facility] 09/01/2017 [facility] needed Aurea Manzo Albuterol Sulfate Inhale The Contents 300units J44.1 [facility] 09/01/2017 Of One Vial Via Aurea Manzo (2.5mg/3ML) 0.083% Nebulizer Four Times Nebulizer A Day as Needed Fenofibrate take one tablet once 90tabs E78.1 Jewett 07/06/2017 160mg daily Pachikara, Tablets M.DAngel Amlodipine Besylate take one tablet by 90tabs I10 Constantino Garcia 01/21/2016 mouth every day [place], 2.5mg Tablets M.D.,FACP Freestyle Glucometer test 2 times a day 1units [facility] 08/06/2014 Aurea Manzo Freestyle Lancets 2 daily and as 100units E11.9 [facility] 08/06/2014 needed Aurea Manzo [facility] Epipen 2-Timi subcutaneously as 2units Maddie 05/27/2014 [...] Tablets Nateglinide three times a day 90tabs Jewett 02/16/2018 - 60mg Aurea Long 05/01/2019 Tablets Prednisone 2 tab by mouth 5 10tabs Jewett 11/30/2017 - 20mg days Aurea Long 01/13/2018 Tablets Metformin HCL Take One Tablet By 180tabs Constantino Garcia 11/29/2017 - Mouth Twice A Day Aurea Yarbrough,[facility] 05/01/2019 1000mg Tablets Mucinex 1 tab twice a day 30tabs Jewett 11/23/2017 - 600mg by mouth Aurea Long 04/25/2018 Tablets ER 12HR Azithromycin 2 tab today and 6tabs Jewett 11/23/2017 - 250mg then 1tab daily Aurea Long 11/28/2017 Tablets Cheratussin ac 10 milliliters by 473ml Constantino Garcia 09/16/2017 - mouth four times a Aurea Yarbrough,[facility] 11/19/2017 100-10mg/5ML Syrup day as needed Azithromycin 2 tab today and 6tabs J06.9 Jewett 09/07/2017 - 250mg then 1tab daily Aurea [...] Maddie Manzo, 02/24/2017 - day M.D. 01/31/2018 [id number] Tablets Atorvastatin 1 by mouth every 90tabs E78.2 Maddie Manzo, 02/15/2017 - Calcium day M.D. 07/06/2017 10mg Tablets Levaquin 1 by mouth every 14tabs S92.511A Philipp Armijo, 08/06/2016 - 500mg day x 14 days - M.D. 02/15/2017 Tablets verbal order given to lavelle at [facility] (No longer taking) Nicotine Step 3 once [...] Maddie Manzo, 03/23/2016 - day M.D. 02/23/2017 [id number] Tablets Ibuprofen Take One Tablet By 30tabs Maddie Manzo, 03/16/2016 - 600mg Mouth Three Times M.D. 04/21/2016 Tablets A Day as Needed Freestyle 28G Use For Testing 100units Maddie Manzo, 01/16/2016 - Lancets Two Times A Day as M.D. 07/15/2018 Needed Freestyle Lite Test use for testing 100units E11.9 Jefferson 01/15/2016 - two times a day Mercedes [...] - cravings M.D. 05/14/2015 2mg Lozenges Fluticasone [place] One [place] In 16units Jewett 02/20/2015 - Propionate Each Nostril Every Pachikara, [...] Maddie Manzo, 09/14/2013 - day M.D. 03/23/2016 [id number] Tablets Fluconazole 1 po qd 2tabs 112.1 Maddie Manzo, 07/05/2013 - 150mg M.D. 08/07/2013 Tablets Calcium 500 +D 1 po bid 60tabs Maddie Manzo, 06/06/2013 - M.D. 09/14/2013 [id number] Tablets Fluconazole 1 po then repeat 2tabs Angélica Lee, 05/16/2013 - 150mg x1 in 1week M.D. 06/06/2013 Tablets Ergocalciferol 1 tab by mouth 8caps Maddie Manzo, 04/24/2013 - every week M.D. 06/06/2013 [id number] Capsules 2-Timi sc as needed as 1units Maddie Manzo, 03/20/2013 - 0.3mg/0.3ML needed for M.D. 08/05/2015 Device anaphylaxis Fluconazole 1 po qd 2tabs Maddie Manzo, 03/09/2013 - 150mg M.D. 06/06/2013 Tablets Nystatin apply to affected 5units 112.3 Maddie Manzo, 03/08/2013 - areas twice a day M.D. 08/07/2013 [id number]/GM as needed for rash Powder x 10 [...] day as M.D. 05/14/2015 Tablets needed for [id number] Blood test daily 1units Juliana Spann, 11/11/2012 [...] 03/08/2013 Janumet Take One Tablet 90tabs Maddie aMnzo, 05/04/2012 - 50-500mg tab by mouth every [...] Accucheck Purvi check BS1- 2 100units 599.0 [facility] Manzo, 03/29/2012 - Chem Strips times/day M.D. 11/11/2012 Accucheck Lancets as needed 100units 599.0 [facility] Manzo, 03/29/2012 - (Soft-Clix) M.D. 11/11/2012 Accu-Check Glucose check 2-3 times a 1units 599.0 [facility] Manzo, 2011 - Monitor day M.D. 08/02/2014 Device Janumet 1 po bid 60tabs 599.0 [facility] Manzo, 03/29/2012 - 50-500mg M.D. 03/30/2012 Tablets Percocet 1 tab times a day 56tabs 715.09 [facility] Manzo, 03/24/2012 - 7.5-500mg as needed M.D. [...] CPT Code Status Date Vaccine Lot # [id number] Given 04/01/2015 Pneumococcal Conjugate Vaccine 13 Valent For [id number] Intramuscular Use [id number] Given 09/26/2014 Flu Vaccine Split Virus Preservative Free For [id number] Indiv 3Yr Older 31583 Given 09/14/2013 Flu Vaccine Split Virus Preservative Free For [id number] Indiv 3Yr Older 62491 Given 01/25/2013 Pneumonia Vaccine [id number] Given 08/16/2012 Fluzone Vaccine [id number] 34264 Given 08/16/2012 Influenza Virus 3Yrs & Over 47007 Given 05/26/2012 Tdap - Tetanus/Diptheria/Acellular Pertussis [id number] Vital Signs Date Vital Result Comment 05/02/2019 10:45am Height 59 inches 4'11" Weight [...] Result H/L Range Note Laboratory test 07/28/2018 [facility] Hemoglobin A1c 7.4 High 5-7 finding Lipid Profile 07/26/2018 [facility] Triglycerides 309 mg/dL 1 (Trig/Chol/HDL) [address] [place] [address] [phone] Cholesterol 138 mg/dL 2 HDL Cholesterol 25.3 mg/dL 3 LDL Cholesterol 51 mg/dL 4 Laboratory test 04/26/2018 [facility] Hemoglobin A1c 7.2 High 5-7 finding Lipid Profile 02/10/2018 [facility] Triglycerides 370 mg/dL 5, 6 (Trig/Chol/HDL) [address] [place] [address] [phone] Cholesterol 160 mg/dL 7 HDL Cholesterol 27.4 mg/dL 8 LDL Cholesterol 59 mg/dL 9 Comp Metabolic Panel 02/10/2018 [facility] Sodium 137 mmol/L N 133-145 [address] [place] [address] [phone] Potassium 3.9 mmol/L N 3.5-5.0 Chloride 102 [...] Egfr 129.5 >60 10 Laboratory test 02/10/2018 [facility] Hemoglobin A1c 8.2 % High 4.0-5.6 [address] (Glyco HGB) [place] [address] [phone] Laboratory test 01/13/2018 [facility] Hemoglobin A1c 7.6 High 5-7 finding Laboratory test 11/19/2017 [facility] Hemoglobin A1c 8.7 High 5-7 finding Laboratory test 07/14/2017 [facility] Magnesium 1.7 Low 1.9- 2.[address] mg/[place] [address] [phone] Calcium Ionized 4.85 mg/dL N 4.65-5.28 Basic Metabolic Panel 07/14/2017 [facility] Sodium 135 mmol/L N 133-[address] [place] [address] [phone] Potassium 4.0 mmol/L N 3.5-5.0 Chloride 101 mmol/L N 101-111 Co2 Carbon Dioxide 28 mmol/L N 22-32 Anion Gap 6 mmol/L N 2-11 Glucose 199 mg/dL High 70-100 Blood Urea Nitrogen 12 mg/dL N 6-24 Creatinine 0.60 mg/dL N 0.51-0.95 BUN/Creatinine Ratio 20.0 N 8-20 Calcium 9.6 mg/dL N 8.6-10.3 Egfr Non- 104.6 N >60 Egfr 134.5 N >60 12 Laboratory test 06/14/2017 [facility] Hemoglobin A1c 6.9 % High Less [address] (Glyco HGB) than 6.0 [place] [address] [phone] Lipid Profile 06/14/2017 [facility] Triglycerides 369 N 14 (Trig/Chol/HDL) 101 mg/[place] [address] [phone] Cholesterol 113 mg/dL N 15 HDL Cholesterol 28.2 mg/dL N 16 LDL Cholesterol 11 mg/dL N 17 Urine Microalbumin 06/14/2017 [facility] Urine Creatinine 95.45 mg/dL N Random [address] [place] [address] [phone] Ur Microalbumin (mg/L) 27.4 mg/L N Urine Microalbumin/Creatinine 28.7 ug/mg N <31 Urinalysis Profile 03/17/2017 [facility] Urine Color Yellow [address] [place] [address] [phone] Urine Appearance Cloudy N Urine Specific [place] 1.013 N 1.010-1.030 Urine pH 5.0 N [...] Present Abnormal Absent Comp Metabolic Panel 03/17/2017 [facility] Sodium 137 mmol/L N 133-[address] [place] [address] [phone] Potassium 3.4 mmol/L Low 3.5-5.0 Chloride 100 [...] 90.9 N >60 Egfr 116.9 N >60 18 Laboratory test finding 03/17/2017 [facility] Lipase 26 U/L N 11.0-82.[address] [place] [address] [phone] C Reactive Protein 2.92 mg/L N < 5.00 19 Lactic Acid 2.3 mmol/L High 0.5-2.0 20 CBC Auto 03/17/2017 [facility] White Blood 11.1 10^3/uL High 3.5-10.[address] [place] [address] [phone] Red Blood Count 4.94 10^6/uL N 4.0-5.4 [...] Blood Cells % 0.1 N Inr/Protime 03/17/2017 [facility] Inr 0.82 Low 0.89-1.[address] [place], [place] [phone] Laboratory test 03/17/2017 [facility] Partial Thrombo 28.2 N 26.0-36.[address] [place] [address] [phone] Urine Culture 03/17/2017 [facility] Urine Culture SEE [address] [place] [address] [phone] [phone] Laboratory test 03/17/2017 [facility] Point of Care 113 mg/dL High 74-106 [address] [place] [address] [phone] Lipid Profile 02/08/2017 [facility] Triglycerides 207 mg/dL N 23 (Trig/Chol/HDL) [address] [place] [address] [phone] Cholesterol 111 mg/dL N 24 HDL Cholesterol 32.1 mg/dL N 25 LDL Cholesterol 38 mg/dL N 26 Laboratory test 02/08/2017 [facility] Hemoglobin A1c 7.3 % High Less than [address] (Glyco HGB) 6.0 [place] [address] [phone] Comp Metabolic 07/31/2016 [facility] Sodium 135 N 133-[address] mmol/[place] [address] [phone] Potassium 4.0 mmol/L N 3.5-5.0 Chloride 103 [...] 123.1 N >60 28 Laboratory test 06/30/2016 [facility] Hemoglobin A1c 6.1 5-7 finding Laboratory test 02/04/2016 [facility] Hepatitis C Nonreactive N Nonreactive finding [address] [address] [phone] HIV 1/2 AB 02/04/2016 [facility] HIV 1 2 Nonreactive N Nonreactive [address] [place] [address] [phone] Liver Function 02/04/2016 [facility] Total Protein 6.9 g/dL N 6.4-8.[address] [place] [address] [phone] Albumin 4.3 g/dL N 3.2-5.2 Globulin 2.6 g/dL N 2-4 Albumin/Globulin Ratio 1.7 N 1-3 Total Bilirubin 0.20 mg/dL N 0.2-1.0 Direct Bilirubin 0.10 mg/dL N 0.03-0.18 Indirect Bilirubin 0.1 mg/dL Low 0.3-1.0 Alkaline Phosphatase 89 U/L N 34-104 Alt 16 U/L N 7-52 Ast 14 U/L N 13-39 Laboratory test 02/04/2016 [facility] Potassium 4.2 mmol/L N 3.5-5.[address] [place], [place] [address] [phone] Urine 01/21/2016 [facility] Ur Microalbumin 44.0 mg/L N Microalbumin [address] (mg/L) [place] [address] [phone] Urine Creatinine 82.01 mg/dL N Urine Microalbumin/Creatinine 53.6 ug/mg High <31 Laboratory test 12/30/2015 [facility] Hemoglobin A1c 6.0 5-7 finding Drug Abuse 20 12/10/2015 [facility] Urine Amphetamine Negative ng/mL N [address] [place] [address] [phone] Urine Barbiturates Negative ng/mL N 31 Urine Benzodiazepines Negative ng/mL N 32 Urine Cocaine Negative ng/mL N 33 Urine Methadone Negative ng/mL N 34 Urine Opiates Negative ng/mL N 35 Urine Phencyclidine Negative ng/mL N Cutoff: 25 Urine Tetrahydrocannabinol Presumptive Posi <SEE NOTE> ng/mL N Cutoff: 20 36 Urine Oxycodone Presumptive Posi <SEE NOTE> ng/mL N 37 Oxycodone,Urine 12/10/2015 [facility] Oxycodone Negative ng/mL N [address] [place] [address] [phone] Oxymorphone 270 ng/mL N 39 Oxycodone Interpretation Positive. N 40 THC Confirmation 12/10/2015 [facility] Urine Carboxy 280 ng/mL N [address] [place] [address] [phone] Urine THC Interpretation Positive. N 42 Laboratory test 08/02/2015 [facility] Hemoglobin A1c 6.1 % High Less [address] (Glyco HGB) than 6.0 [place] [address] [phone] Lipid Profile 08/02/2015 [facility] Triglycerides 72 N 44 (Trig/Chol/HDL) [address] mg/[place] [address] [phone] Cholesterol 111 mg/dL N 45 HDL Cholesterol 34.0 mg/dL N 46 LDL Cholesterol 63 mg/dL N 47 Comp Metabolic Panel 08/02/2015 [facility] Sodium 136 mmol/L N 133-[address] [place] [address] [phone] Potassium 4.7 mmol/L N 3.5-5.0 Chloride 101 [...] 97.8 N >60 Egfr 125.8 N >60 48 Laboratory test 01/30/2015 [facility] Hemoglobin A1c 6.2 5-7 finding Comp Metabolic 01/18/2015 [facility] Sodium 136 mmol/L N 133- 145 [address] [place] [address] [phone] Potassium 4.2 mmol/L N 3.5-5.0 Chloride 102 [...] N >60 Egfr 117.8 N >60 50 Urine 07/27/2014 [facility] Ur Microalbumin 6.0 mg/dL N <30 51, [address] (mg/L) [place] [address] [phone] Urine Creatinine 70.22 mg/dL N Urine Microalbumin/Creatinine 8.5 N Less Than 31 Comp Metabolic Panel 07/27/2014 [facility] Sodium 136 mmol/L N 133-[address] [place] [address] [phone] Potassium 4.0 mmol/L N 3.7-5.6 Chloride 102 [...] 91.6 N >60 Egfr 117.8 N >60 53 Lipid Profile 07/27/2014 [facility] Triglycerides 98 mg/dL N 54 (Trig/Chol/HDL) [address] [place] [address] [phone] Cholesterol 144 mg/dL N 55 HDL Cholesterol 27.0 mg/dL N 56 LDL Cholesterol 97 mg/dL N 57 Laboratory test 07/27/2014 [facility] Hemoglobin A1c 6.4 % High Less than [address] 6.0 [place] [address] [phone] Ua Routine 03/12/2014 [facility] Ua Specific 1.005 [place] Ua PH 5 Ua Color yellow Ua Appera clear Ua WBC neg Ua Protein neg Ua Glucose neg Ua Ketones neg Ua Bilirubin neg Ua Urobilinogen neg Ua Nitrite neg Ua Occult Blood neg Vitamin D, 25 01/30/2014 [facility] 25-Hydroxy Vitamin 4.8 ng/ mL Hydroxy [address] [place] [address] [phone] 25-Hydroxy Vitamin D3 35 ng/mL 25-Hydroxy Vitamin D Total 40 ng/mL 59 Basic Metabolic Panel 01/30/2014 [facility] Sodium 136 mmol/L 133-[address] [place] [address] [phone] Potassium 4.2 mmol/L 3.7-5.6 Chloride 100 mmol/L Low 101-111 Co2 Carbon Dioxide 27 mmol/L 22-32 Anion Gap 9 mmol/L 2-11 Glucose 87 mg/dL 70-100 Blood Urea Nitrogen 8 mg/dL 6-24 Creatinine 0.68 mg/dL 0.51-0.95 BUN/Creatinine Ratio 11.8 8-20 Calcium 9.3 mg/dL 8.6-10.3 Egfr Non- 92.0 >60 Egfr 118.3 >60 60 Urine Microalbumin 01/30/2014 [facility] Ur Microalbumin 12.0 mg /dL <30 [address] (mg/L) [place] [address] [phone] Urine Creatinine 35.77 mg/dL Urine Microalbumin/Creatinine 33.5 High Less Than 31 Laboratory test 01/30/2014 [facility] Hemoglobin A1c 5.5 5-7 finding Comp Metabolic Panel 08/07/2013 [facility] Sodium 135 mmol/L 133-[address] [place] [address] [phone] Potassium 4.0 mmol/L 3.5-5.0 Chloride 99 mmol/L [...] Egfr Non- 88.9 >60 Egfr 114.4 >60 62 Lipid Profile 08/07/2013 [facility] Triglycerides 196 mg/dL 40-200 (Trig/Chol/HDL) [address] [place] [address] [phone] Cholesterol 152 mg/dL Less than 200 HDL Cholesterol 31 mg/dL Low 40-60 63 Cholesterol/HDL Ratio 4.9 Average High 1-4.44 LDL Cholesterol 81.8 Less Than 100 64 Drug Abuse 20 08/07/2013 [facility] Urine Amphetamine Negative ng/mL [address] [place] [address] [phone] Urine Barbiturates Negative ng/mL 66 Urine Benzodiazepines Negative ng/mL 67 Urine Cocaine Negative ng/mL 68 Urine Methadone Negative ng/mL 69 Urine Opiates Negative ng/mL 70 Urine Phencyclidine Negative ng/mL Cutoff: 25 Urine Propoxyphene Negative ng/mL 71 Urine Tetrahydrocannabinol Presumptive Posi <SEE NOTE> ng/mL Cutoff: 20 72 Creatinine 88.8 mg/dL Specific [place] 1.013 pH 7.0 Oxidants Negative 73 Urine Opiates Screen Negative 74 Urine Codeine Confirmation Negative ng/mL 75 Urine Hydrocodone Confirm Negative ng/mL 76 Urine Hydromorphone Confirm Negative ng/mL 77 Urine Morphine Confirm Negative ng/mL 78 Urine Oxycodone Confirm 993 ng/mL 79 Urine Opiates Interpretation See Comment 80 THC Confirmation 08/07/2013 [facility] Urine THC Presumptive Cutoff: 20 [address] Screen Posi <SEE NOTE> [place] [address] [phone] Urine Carboxy THC Confirm 226 ng/mL Cutoff: 3 Urine THC Interpretation Positive. 82 Laboratory test 08/07/2013 [facility] Hemoglobin A1c 5.7 5-7 finding Vitamin D, 25 06/06/2013 [facility] 25-Hydroxy Vitamin 31 ng/mL Hydroxy [address] [place] [address] [phone] 25-Hydroxy Vitamin D3 14 ng/mL 25-Hydroxy Vitamin D Total 45 ng/mL 83 Pthi 04/13/2013 [facility] PTH Intact 2.5 pmol/L 1.3-9.0 [place] [address] [phone] Calcium (PTH Intact) 9.5 mg/dL 8.1-9.9 Vitamin D, 25 04/13/2013 [facility] 25-Hydroxy Vitamin <4.0 ng/ mL Hydroxy [address] D[address] [place] [address] [phone] 25-Hydroxy Vitamin D3 20 ng/mL 25-Hydroxy Vitamin D Total 20 ng/mL Abnormal 84 Laboratory test 03/08/2013 [facility] Cytology RUN DATE: [address] 03/09/ <[place] [address] NOTE> [phone] Liver Function 02/27/2013 [facility] Total Protein 7.8 g/dL 6.2-8. Panel [address] [place] [address] [phone] Albumin 4.1 g/dL 3.6-5.4 Globulin 3.7 g/dL 2-4 Albumin/Globulin Ratio 1.1 1-3 Total Bilirubin 0.4 mg/dL 0.4-1.5 Direct Bilirubin < 0.1 mg/dL Low 0.1-0.5 Indirect Bilirubin (SEE NOTE) mg/dL 0.3-1.0 86 Alkaline Phosphatase 80 U/L 30-110 Alt 17 U/L 14-54 Ast 24 U/L 12-42 Drug Abuse 20 02/27/2013 [facility] Urine Amphetamine Negative ng/mL 87 Urine [address] [place] [address] [phone] Urine Barbiturates Negative ng/mL 88 Urine Benzodiazepines Negative ng/mL 89 Urine Cocaine Negative ng/mL 90 Urine Methadone Negative ng/mL 91 Urine Opiates Negative ng/mL 92 Urine Phencyclidine Negative ng/mL Cutoff: 25 Urine Propoxyphene Negative ng/mL 93 Urine Tetrahydrocannabinol Negative ng/mL Cutoff: 20 94 Creatinine 16.9 mg/dL 95 Specific [place] 1.004 pH 6.3 Oxidants Negative 96 Urine Opiates Screen Negative 97 Urine Codeine Confirmation Negative ng/mL 98 Urine Hydrocodone Confirm Negative ng/mL 99 Urine Hydromorphone Confirm Negative ng/mL 100 Urine Morphine Confirm Negative ng/mL 101 Urine Oxycodone Confirm 481 ng/mL 102 Urine Opiates Interpretation See Comment 103 Lipid Profile 01/25/2013 [facility] Triglycerides 342 mg/dL High 40-200 (Trig/Chol/HDL) [address] [place] [address] [phone] Cholesterol 187 mg/dL Less than 200 HDL Cholesterol 34 mg/dL Low 40-60 104 Cholesterol/HDL Ratio 5.5 Average High 1-4.44 LDL Cholesterol 84.6 mg/dL Less Than 100 105 Comp Metabolic Panel 01/25/2013 [facility] Sodium 137 mmol/L 133-[address] [place] [address] [phone] Potassium 4.1 mmol/L 3.5-5.0 Chloride 100 mmol/L [...] Egfr 137.2 >60 106 Urine Microalbumin 01/25/2013 [facility] Ur Microalbumin 4.0 mg/ L [address] (Mg/L) [place] [address] [phone] Urine Creatinine 33.0 mg/dL Urine Microalbumin/Creatinine 12.1 ug/mg Less Than 31 Drug Abuse 01/25/2013 [facility] Urine Amphetamine Negative ng/ mL 108 [address] [place] [address] [phone] Urine Barbiturates Negative ng/mL 109 Urine Benzodiazepines Negative ng/mL 110 Urine Cocaine Negative ng/mL 111 Urine Methadone Negative ng/mL 112 Urine Opiates Negative ng/mL 113 Urine Phencyclidine Negative ng/mL Cutoff: 25 Urine Propoxyphene Negative ng/mL 114 Urine Tetrahydrocannabinol Negative ng/mL Cutoff: 20 115 Creatinine 32.3 mg/dL Specific [place] 1.008 pH 6.9 Oxidants Negative 116 Urine Opiates Screen Negative 117 Urine Codeine Confirmation Negative ng/mL 118 Urine Hydrocodone Confirm Negative ng/mL 119 Urine Hydromorphone Confirm Negative ng/mL 120 Urine Morphine Confirm Negative ng/mL 121 Urine Oxycodone Confirm 233 ng/mL 122 Urine Opiates Interpretation See Comment 123 CBC Auto 01/25/2013 [facility] White Blood 11.2 10^3/uL High 4.8-10.[address] [place] [address] [phone] Red Blood Count 4.98 10^6/uL 4.0-5.4 Hemoglobin [...] Blood Cells % 0.2 Laboratory test 01/25/2013 [facility] Hemoglobin A1c 5.6 5-7 finding Urine Culture And 10/20/2012 [facility] Urine Culture (SEE NOTE ) [address] [place] [address] [phone] Ua Routine 10/20/2012 [facility] Ua Specific 1.010 [place] Ua PH 5 Ua Color yellow Ua Appera slightly cloudy Ua WBC trace Ua Protein trace Ua Glucose negative Ua Ketones negative Ua Bilirubin negative Ua Urobilinogen negative Ua Nitrite negative Ua Occult Blood trace Laboratory test 10/02/2012 [facility] Uric Acid 5.9 mg/dL 2.6 -7.[address] [place] [address] [phone] CBC Auto Diff 10/02/2012 [facility] White Blood 9.4 10^3/uL 4.8-10.[address] [place] [address] [phone] Red Blood Count 4.80 10^6/uL 4.0-5.4 Hemoglobin [...] Blood Cells % 0.1 Laboratory test 09/01/2012 [facility] Throat Culture (SEE NOTE) [address] [place] [address] [phone] Laboratory test 08/16/2012 [facility] Hemoglobin A1c 5.7 5-7 finding Laboratory test 06/30/2012 [facility] Potassium 4.5 mmol/L 3.5-[address]0 [place] [address] [phone] Laboratory test 03/29/2012 [facility] Hemoglobin A1c 8.3 High 5-7 finding Comp Metabolic 03/28/2012 [facility] Sodium 132 mmol/L Low 135 -[address] [place] [address] [phone] Potassium 4.1 mmol/L 3.5-5.0 Chloride 97 mmol/L Low 101-111 Co2 (Carbon Dioxide) 30.0 mmol/L 22-32 Anion Gap 5.0 mmol/L 2-11 126 Glucose 234 mg/dL High 70-100 BUN 8 mg/dL 6-24 Creatinine 0.6 mg/dL 0.50-1.40 One Over Creatinine 1.66 BUN/Creatinine Ratio 13.3 8-20 Calcium 8.8 mg/dL 8.1-9.9 Total Protein 6.7 GM/DL 6.2-8.1 Albumin 3.7 GM/DL 3.6-5.4 Globulin 3.0 GM/DL 2-4 Albumin/Globulin Ratio 1.2 1-3 Bilirubin Total 0.4 mg/dL 0.4-1.5 127 Alkaline Phosphatase 91 U/L 30-110 Alt (SGPT) 39 U/L 14-54 Ast (Sgot) 50 U/L High 12-42 eGFR Non- 107.2 > 60 eGFR 137.8 > 60 128 Lipid Profile 03/28/2012 [facility] Triglyceride 348 mg/dL High 40-200 (Trig/Chol/HDL) [address] [place] [address] [phone] Cholesterol 170 mg/dL Less Than 200 129 High Density Lipoprotein 23 mg/dL Low 40-60 130 Cholesterol/HDL Ratio 7.39 AVERAGE High 1-4.44 Low Density Lipoprotein 77 mg/dL Less Than 100 131 Drug Abuse 03/24/2012 [facility] Urine Ampetamines Negative ng/ mL () 132 20 Urine [address] [place] [address] [phone] Urine Barbiturates Negative ng/mL () 133 Urine [...] in selective patients <6.0%. Please refer to [employer] diabetic care guidelines for further [...] and in selective patients <6.0%.Please refer to [employer] Diabetic care guidelines for further information. 14 Desirable <150 Borderline high 150-199 High 200-499 Very High >500 15 Desirable <200 Borderline high 200-239 High >239 16 Low <40 Desirable: 40-60 High: >60 17 Desirable: <100 mg/dL Near Optimal: 100-129 mg/dL Borderline High: 130-159 mg/dL High: 160-189 mg/dL Very High: >189 mg/dL 18 Because ethnic data is not always readily [...] 15-29 5 Kidney failure <15 (or dialysis) 19 Acute inflammation: >10.00 20 Critical Result LACT:2.3 Called to [id number] at: 19:15:13 by:[id number] Read back by:[facility] Severe Sepsis and Septic Shock Management Bundle Measure requires all lactic acids initially measuring >2.0 mmol/L be repeated. 21 SEE RESULT BELOW Name: JUAN FRANCISCO PAIGE : [address]: Sawyer Bolivar MD Acct: [id number] Unit: [id number] AGE: 51 Location: ED Re03/17/17 SEX: F Status: DEP ER SPEC: [id number] RASHAAD: 03/17/17 [facility] DR: David Loera MD REQ: [id number] RECD: 03/17/17 STATUS: SHAINA CH DR: [facility] Maddie Manzo MD _ SOURCE: URINE SPDESC: ORDERED: Urine Culture Procedure Result Reported Site Urine Culture Final 03/19/17- 0809 ML No Growth (<1,000 CFU/mL) * ML - MAIN LAB ([facility]) . END OF REPORT * ML=Testing performed at Main Lab DEPARTMENT OF PATHOLOGY, [address] [place] [address] Hugo Camacho M.D. Director [facility] # [id number] 22 Data Reviewer: [id number] 23 Desirable <150 Borderline high 150-199 High [...] and in selective patients <6.0%.Please refer to [employer] Diabetic care guidelines for further [...] use in employment-related testing. Test Performed by: [place] [address] [employer] Set Up Operator: David Logan II, M.D., Ph.D. 38 REFERENCE VALUE Cutoff: 100 39 REFERENCE VALUE Cutoff: 100 40 ADDITIONAL INFORMATION This report is intended for use in clinical monitoring and management of patients. It is not intended for use in employment-related testing. Test Performed by: [facility] [place] [address] [employer] Set Up Operator: David Logan II, M.D., Ph.D. 41 REFERENCE VALUE Cutoff: 3.0 42 ADDITIONAL INFORMATION This report is intended for use in clinical monitoring and management of patients. It is not intended for use in employment-related testing. Test Performed by: [place] [address] [employer] Set Up Operator: David Logan II, M.D., Ph.D. 43 Therapeutic target for the treatment of diabetes Mellitus patients is <7% HBA1C, and in selective patients <6.0%.Please refer to [employer] Diabetic care guidelines for further information. 44 Desirable <150 Borderline high 150-199 High 200-499 Very High >500 45 Desirable <200 Borderline high 200-239 High >239 46 Low <40 Desirable: 40-60 High: >60 47 Desirable: <100 mg/dL Near Optimal: 100-129 mg/dL Borderline High: 130-159 mg/dL High: 160-189 mg/dL Very High: >189 mg/dL 48 Because ethnic data is not always readily [...] 15-29 5 Kidney failure <15 (or dialysis) 49 FASTING 10 HOUR 50 Because ethnic [...] (or dialysis) 51 PT IS FASTING 52 Microalbuminuria in a random sample is defined as: Microalbumin/Creatinine ratio of 30-299 ug/mg. 53 Because ethnic data is not always readily [...] 15-29 5 Kidney failure <15 (or dialysis) 54 Desirable <150 Borderline high 150-199 High 200-499 Very High >500 55 Desirable <200 Borderline high 200-239 High >239 56 Low <40 Desirable: 40-60 High: >60 57 Desirable <100 Near Optimal 100-129 Borderline high 130-159 High 160-189 Very High >189 58 Therapeutic target for the treatment of diabetes Mellitus patients is <7% HBA1C, and in selective patients <6.0%.Please refer to [employer] Diabetic care guidelines for further information. 59 -- REFERENCE VALUE -- 25-HYDROXY D TOTAL (D2+D3) Optimum levels in the healthy population are 20-50, patients with bone disease may benefit from higher levels within this range. Test Performed by: [facility] [address] [address] [employer] Set Up Operator: Param Richardson III, M.D. 60 Because ethnic [...] as: Microalbumin/Creatinine ratio of 30-299 ug/mg. 62 Because ethnic data is not always readily [...] 15-29 5 Kidney failure <15 (or dialysis) 63 HDL Interpretation: Undesirable: High Risk: Less than 40 mg/dL Desirable: Low Risk: Greater than 60 mg/dL 64 LDL Interpretation: Low Risk Optimal Level: LDL Less than 100 mg/dL Near or Above Optimal: LDL 100-129 mg/dL Borderline High Risk: LDL 130-159 mg/dL High Risk: LDL 160-189 mg/dL Very High Risk: LDL Greater than 189 mg/dL 65 -- REFERENCE VALUE -- Cutoff: 500 66 -- REFERENCE VALUE -- Cutoff: 200 67 -- REFERENCE VALUE -- Cutoff: 200 68 -- REFERENCE VALUE -- Cutoff: 150 69 -- REFERENCE VALUE -- Cutoff: 300 70 -- REFERENCE VALUE -- Cutoff: 300 71 -- REFERENCE VALUE -- Cutoff: 300 72 Presumptive Positive Drug confirmation to follow. Presumptive Positive means that the screening method is positive, but the test needs to be run by a confirmatory method before being finalized. This report is intended for use in clinical monitoring or management of patients. It is not intended for use in employment-related testing. 73 Test Performed by: [place] [address] [employer] Set Up Operator: Param Richardson III, M.D. 74 -- REFERENCE VALUE -- Cutoff: 300 75 -- REFERENCE VALUE -- Cutoff: 100 76 -- REFERENCE VALUE -- Cutoff: 100 77 -- REFERENCE VALUE -- Cutoff: 100 78 -- REFERENCE VALUE -- Cutoff: 100 79 -- REFERENCE VALUE -- Cutoff: 100 80 Positive. Discrepancy noted between immunoassay result and GC/MS result. The GC/MS result is the definitive result. This report is intended for use in clinical monitoring and management of patients. It is not intended for use in employment-related testing. Test Performed by: [place] [address] [employer] Set Up Operator: Param Richardson III, M.D. 81 Presumptive Positive 82 This report is intended for use in clinical monitoring and management of patients. It is not intended for use in employment-related testing. Test Performed by: [place] [address] [employer] Set Up Operator: Param Richardson III, M.D. 83 -- REFERENCE VALUE -- 25-HYDROXY D TOTAL (D2+D3) Optimum levels in the normal population are 25-80 Test Performed by: [place] [address] [employer] Set Up Operator: Param Richardson III, M.D. 84 Interpretation: 10-24 (mild to moderate deficiency) -- REFERENCE VALUE -- 25-HYDROXY D TOTAL (D2+D3) Optimum levels in the normal population are 25-80 Test Performed by: [place] [address] [employer] Set Up Operator: Param Richardson III, M.D. 85 RUN DATE: 03/09/13 [facility] LAB LIVE PAGE 1 RUN TIME: [address] [place] [address] Specimen Inquiry Name: JUAN FRANCISCO PAIGE : [address]: Maddie Manzo MD Acct: [id number] Unit: [id number] AGE: 47 Location: [facility] Re03/08/13 SEX: F Status: REG REF SPEC: [id number] RASHAAD: 03/08/13-[address]: Maddie Manzo MD REQ: [id number] RECD: 03/08/139043 STATUS: SOUT _ ORDERED: IMAGE ANALYSIS FINAL [...] Abnormal Pap Smears?:N Signed (signature on file) Maxine Espino [place] (ASCP) 03/09/13 1866 This Pap test was evaluated with the assistance of the ThinPrep Test Imaging System. Due to cytologic findings at the full service vending driver microscope, comprehensive manual rescreening by a Activities Director may be required. The Pap Smear is [...] performed at Main Lab DEPARTMENT OF PATHOLOGY, [address] [place] [address] Hugo Camacho M.D. Director [facility] Permit #[id number] UNABLE TO CALCULATE IND.BILI D.BILI IS [...] Specimen unusually dilute. 96 Test Performed by: [address] [address] [employer] Set Up Operator: Param Richardson III, M.D. 97 -- REFERENCE [...] use in employment-related testing. Test Performed by: [address] [address] [employer] Set Up Operator: Param Richardson III, M.D. 104 HDL Interpretation: Undesirable: High [...] in employment-related testing. 116 Test Performed by: [place] [address] [employer] Set Up Operator: Param Richardson III, M.D. 117 -- REFERENCE [...] use in employment-related testing. Test Performed by: [place] [address] [employer] Set Up Operator: Param Richardson III, M.D. 124 RUN DATE: 10/23/12 [facility] LAB LIVE PAGE 1 RUN TIME: [address] [place] [address] Specimen Inquiry Name: JUAN FRANCISCO PAIGE : [address]: Maddie Manzo MD Acct: [id number] Unit: [id number] AGE: 47 Location: [facility] Re10/20/12 SEX: F Status: REG REF SPEC: [id number] RASHAAD: 10/20/12-1123 [facility] DR: Maddie Manzo MD REQ: [id number] RECD: 10/20/12 STATUS: COMP _ SOURCE: URINE SPDESC: ORDERED: Urine Culture QUERIES: Medent Number [id number] Procedure Result Verified Site Urine Culture Final 10/23/12- 0839 ML Organism 1 ESCHERICHIA COLI Neligh Count 25-50,000 (Moderate) CFU/ML Organism 2 NORMAL DEISY Neligh Count 1-10,000 (Few) CFU/ML 1. ESCHERICHIA COLI [...] performed at Main Lab DEPARTMENT OF PATHOLOGY, [facility] [place] [employer] [place] [address] Hugo Camacho M.D. Director [facility] Permit #[id number] RUN DATE: 10/23/12 [facility] LAB LIVE PAGE 2 RUN TIME: 838 [facility] [place] [facility] [place] [employer] [place], [place] [address] Specimen Inquiry Patient: JUAN FRANCISCO PAIGE [id number] (Continued) Specimen: [id number] Collected: 10/20/12 Received: 10/20/12 (Continued) Procedure Result Verified Site Urine Culture Final (continued) * These antibiotics are not available in the [facility] Formulary Contact the Microbiology Department for any additional antibiotic reporting. END OF REPORT * ML=Testing performed at Main Lab DEPARTMENT OF PATHOLOGY, [facility] [place] [employer] [place], [place] [address] Hugo Camacho M.D. Director [facility] Permit #[id number] RUN DATE: 09/04/12 [facility] LAB LIVE PAGE 1 RUN TIME: [address] [place] [address] Specimen Inquiry Name: JENNIFERJUAN FRANCISCO : [address]: Maddie Manzo MD Acct: [id number] Unit: [id number] AGE: 47 Location: [facility] Re09/01/12 SEX: F Status: REG REF SPEC: [id number] RASHAAD: 09/01/[address]: Maddie Manzo MD REQ: [id number] RECD: 09/01/12 STATUS: COMP _ SOURCE: THROAT SPDESC: ORDERED: Throat Culture QUERIES: Medent Number [id number] Procedure Result Verified Site Throat Culture Final 09/04/12- 1246 ML Organism 1 NORMAL DEISY Quantity 3+ Throat cultures are clinically indicated to detect the presence of group A strep, arcanobacterium and yeast. END OF REPORT * ML=Testing performed at Main Lab DEPARTMENT OF PATHOLOGY, [address] [place] [address] Hugo Camacho M.D. Director [facility] Permit #[id number] 126 Anion gap measurement may be of limited value in the presence of any alkalosis, especially in a combined acid base disorder. . 127 A metabolite of Naproxen, O-desmethylnaproxen, has been shown to interfere with the Jendrassik-Lodge method for measuring total bilirubin. Samples from patients who have taken Naproxen have shown spurious elevation in total bilirubin levels. 128 Because ethnic data is not always readily [...] 15-29 5 Kidney failure <15 (or dialysis) 129 CHOLESTEROL INTERPRETATION: Desirable: Less than 200 MG/DL Borderline-High Risk: 200-239 MG/DL High-Risk: 240 MG/DL and over 130 HDL INTERPRETATION: Undesirable: High Risk: Less than 40 MG/DL Desirable: Low Risk: Greater than 60 MG/DL 131 LDL INTERPRETATION: Low Risk Optimal Level: LDL Less than 100 MG/DL Near or Above Optimal: LDL 100-129 MG/DL Borderline High Risk: LDL 130-159 MG/DL High Risk: LDL 160-189 MG/DL Very High Risk: LDL Greater than 189 MG/DL 132 -- REFERENCE VALUE -- Cutoff: 500 [...] use in employment-related testing. Test Performed by: [facility] Dpt of Lab Med and Pathology [address] [place] [address] [employer] Set Up Operator: Param Richardson III, M.D. 140 -- REFERENCE [...] use in employment-related testing. Test Performed by: [facility] Med [facility] Pathology [address] [place] [address] [employer] Set Up Operator: Param Richardson III, M.D. Procedures Date Code Description Status 2018 [id number] Diabetic Retinal Eye Exam Completed 04/11/2018 97416 Inject/Drain Joint/Bursa Major W/O US Completed 12/30/2017 18849 Diffusing Capacity Completed 12/30/2017 56363 Plethysmography Determination Lung Volumes & Per Completed Airway Resist 12/30/2017 53719 Pulmonary Function><Bronchodil Completed 12/30/2017 [id number] Mammogram Completed 09/01/2017 53492 Inhalation TX For Acute Airway Obstruction Completed W/Nebulizer/Inhaler 03/30/2017 89533 ECHO Transthoracic, Real-Time 2D With Doppler And Completed Color Flow 02/15/2017 14950 EKG Tracing & Interpretation Completed 02/11/2016 385055096 Bone Mineral Density Test Completed 08/26/2015 898068429 Diabetic Foot Exam Completed 07/02/2015 14418436 Mammogram Completed 03/13/2015 84507 Pulmonary Function><Bronchodil Completed 03/13/2015 02476 Plethysmography Determination Lung Volumes & Per Completed Airway Resist 12/25/2014 [id number] Mammogram Completed 06/22/2014 [id number] Mammogram Completed 04/25/2014 51611297 Colonoscopy Completed 03/17/2013 039234144 Bone Mineral Density Test Completed 03/06/2013 163098968 Diabetic Foot Exam Completed 08/16/2012 99526 EKG Tracing & Interpretation Completed 05/31/2012 117265377 Bone Mineral Density Test Completed 05/31/2012 82541049 Mammogram Completed Encounters Type Date Location Provider Dx Diagnosis Office Visit 04/10/2019 Orthopedic Tamia Odom, M25.552 Pain in left hip 8:30a Services Of Tod Villar M16.12 Unilateral primary osteoarthritis, left hip Office Visit 07/28/2018 9:40a [facility] Internal [place]ett E11.9 Type 2 diabetes Diana Long M.D. mellitus without [address] complications E78.1 Pure hyperglyceridemia I10 Essential (primary) hypertension B35.4 Tinea corporis J44.9 Chronic obstructive pulmonary disease, unspecified Office Visit 07/14/2018 8:40a [facility] Internal [place] B35.4 Tinea corporis Diana Long M.D. [address] Office Visit 04/26/2018 9:40a [facility] Internal Jefferson E11.9 Type 2 diabetes Diana Long M.D. mellitus without Suite R complications I10 Essential (primary) hypertension E78.1 Pure hyperglyceridemia K21.9 Gastro-esophageal reflux disease without esophagitis J30.2 Other seasonal allergic rhinitis Office Visit 04/11/2018 1:30p Orthopedic Roscoe Estes M25.562 Pain in left Services Of Tod Trinidad MD knee M71.22 Synovial cyst of popliteal space [Soto], left knee M17.12 Unilateral primary osteoarthritis, left knee Office Visit 03/30/2018 Pulmonology And Bety G47.33 Obstructive sleep 10:30a Sleep Services Of Imani, TATIANA, RN, apnea (adult) [facility] DIRECTOR OF [employer] (pediatric) F17.201 Nicotine dependence, unspecified, in remission Z68.41 Body mass index (BMI) 40.0-44.9, adult Office Visit 03/25/2018 11:20a [facility] Internal Jefferson Long, J06.9 Acute upper Medicine - M.Jose respiratory Suite R infection, unspecified M79.662 Pain in left lower leg Office Visit 01/13/2018 8:40a [facility] Krystin Paulino E11.9 Type 2 diabetes Diana Long M.D. mellitus without Suite R complications J44.1 Chronic obstructive pulmonary disease w (acute) exacerbation K21.9 Gastro-esophageal reflux disease without esophagitis E78.1 Pure hyperglyceridemia I10 Essential (primary) hypertension Office Visit 11/19/2017 9:00a [facility] Krystin Long, Z00.01 Encounter for Medicine - MJonathon [...] neoplasm of breast Office Visit 09/07/2017 3:00p [facility] Krystin Paulino J06.9 Acute upper Diana Long M.D. respiratory Suite R infection, unspecified Office Visit 09/01/2017 2:40p Alisson Manzo J44.1 Chronic Internal MJonathon obstructive Medicine-Weslyw pulmonary disease ood w (acute) exacerbation J06.9 Acute upper respiratory infection, unspecified F17.210 Nicotine dependence, cigarettes, uncomplicated Office 07/06/2017 KaneotDamian [facility] Krystin Perkins E11.9 Type 2 diabetes Visit 10:10a Medicine-Randy Manzo M.D. mellitus without complications E78.1 Pure hyperglyceridemia R25.2 Cramp and spasm F17.210 Nicotine dependence, cigarettes, uncomplicated Z12.31 Encntr screen mammogram for malignant neoplasm of breast Office 03/25/2017 Alisson [facility] Internal Maddie K59.03 Drug induced Visit 8:50a Ashvin Manzo M.D. constipation R01.1 Cardiac murmur, unspecified Z71.6 Tobacco abuse counseling Office Visit 03/24/2017 Pulmonology And Bety G47.33 Obstructive sleep 8:45a Sleep Services Of TATIANA Diallo RN, apnea (adult) [facility]- (pediatric) E66.9 Obesity, unspecified R00.8 Other abnormalities of heart beat F17.210 Nicotine dependence, cigarettes, uncomplicated Office 02/15/2017 DoNotUse [facility] Internal Maddie E11.9 Type 2 diabetes Visit 11:50a Ashvin Manzo M.D. mellitus without complications E78.2 Mixed hyperlipidemia I10 Essential (primary) hypertension Z71.6 Tobacco abuse counseling Office Visit 09/29/2016 Orthopedic Philipp [id number] Disp fx of prox 11:00a Services Of [...] lesser toe(s), init Office Visit 07/23/2016 Alisson [facility] Maddie I10 Essential 11:50a Krystin Manzo M.D. (primary) Medicine-Weslywo hypertension od Z71.6 Tobacco abuse counseling Office Visit 07/22/2016 Pulmonology And Bety G47.33 Obstructive sleep 11:45a Sleep Services Of TATIANA Diallo RN, apnea (adult) [facility] (pediatric) E66.9 Obesity, unspecified Office Visit 06/30/2016 10:50a [facility] Internal Maddie E11.9 Type 2 diabetes Diana Manzo M.D. mellitus without Ccmob complications M79.671 Pain in right foot I10 Essential (primary) hypertension F17.210 Nicotine dependence, cigarettes, uncomplicated Office Visit 04/09/2016 1:15p Pulmonology And Nabil BAEZA G47.33 Obstructive sleep Sleep Services Of Aurea Beasley apnea (adult) [facility] (pediatric) Office Visit 02/04/2016 9:00a [facility] Internal Nurse Visit C Z11.59 [facility] for other [facility] diseases Z11.4 Encounter for screening for human immunodeficiency virus E78.1 Pure hyperglyceridemia I10 Essential (primary) hypertension E87.6 Hypokalemia Office Visit 01/30/2016 1:30p Pulmonology And Nabil SKAngel G47.33 Obstructive sleep Sleep Services Of Aurea Beasley apnea (adult) [facility] (pediatric) Office Visit 01/21/2016 11:10a [facility] Internal Maddie Z00.00 Encntr for Medicine - Annalisa Manzo M.D. general adult medical exam w/o abnormal findings I10 Essential (primary) hypertension M85.862 Oth disrd of bone density and structure, left lower leg Office Visit 12/30/2015 11:50a [facility] Internal Maddie E11.9 Type 2 diabetes Diana Manzo M.D. mellitus without Ccmob complications E78.1 Pure hyperglyceridemia B86 Scabies M47.896 Other spondylosis, lumbar region E87.6 Hypokalemia Office Visit 12/10/2015 11:50a [facility] Internal Maddie Manzo M54.5 Low back pain Medicine - Annalisa Villar B86 Scabies G47.30 Sleep apnea, unspecified Office Visit 09/12/2015 10:10a [facility] Internal Maddie Manzo, J01.80 Other acute [facility] sinusitis J44.1 Chronic obstructive pulmonary disease w (acute) exacerbation Office Visit 08/05/2015 1:10p [facility] Maddie 250.00 Diabetes Mellitus [facility] W/O Compl Type II Or Unspec Controlled 272.1 Hypertriglyceridemia Pure 715.09 Osteoarthrosis Generalized Multiple Sites 110.1 Dermatophytosis Nail Office Visit 05/21/2015 10:30a [facility] Internal Nurse Visit A 401.9 Hypertension Unspec [facility] 05/14/2015 10:50a [facility] Internal Maddie 461.8 Sinusitis Acute Diana Manzo M.D. [facility] 477.9 Rhinitis Allergic Cause Unspec 845.00 Sprains & Strains Ankle Unspec Site 333.94 Restless Leg Syndrome 401.9 Hypertension Unspec Office Visit 04/01/2015 10:10a [facility] Internal Maddie Jovany, 496 COPD Airway Medicine - Annalisa Villar Obstruction Chronic Not Class Elsewhere 305.1 Tobacco Use Disorder V76.0 Screening Malignant Neoplasm Respiratory Organs V03.82 Streptococcus Pneumoniae Vaccination Spec Other Office Visit 02/20/2015 9:50a [facility] Internal Maddie Manzo, 477.9 Rhinitis Medicine Wallace Fang M.D. Allergic Cause Unspec 305.1 Tobacco Use Disorder Office Visit 01/30/2015 2:30p [facility] Internal Maddie Jovany, 461.8 Sinusitis Acute Medicine Wallace Fang M.D. Other 250.00 Diabetes Mellitus W/O Compl Type II Or Unspec Controlled 496 COPD Airway Obstruction Chronic Not Class Elsewhere 715.09 Osteoarthrosis Generalized Multiple Sites Office Visit 09/26/2014 10:30a [facility] Internal Maddie 715.09 Osteoarthrosis Diana Manzo M.D. Generalized Multiple Ccmob Sites V04.81 Need For Prophylactic Vaccination & Inoculation/Influenza 305.1 Tobacco Use Disorder Office Visit 08/02/2014 2:10p [facility] Internal Maddie 250.00 Diabetes Mellitus Diana Manzo M.D. W/O Compl Type II Or Unspec Controlled 272.1 Hypertriglyceridemia Pure 715.09 Osteoarthrosis Generalized Multiple Sites Office Visit 03/12/2014 1:10p [facility] Internal Maddie V70.0 Examination Medicine Wallace Manzo M.D. General Medical Routine AT [facility] 788.1 Dysuria 112.9 Candidiasis Unspec Site 305.1 Tobacco Use Disorder V76.41 Screening Malignant Neoplasm Rectum V76.10 Screening For Malignant Neoplasm Breast 995.0 Other Anaphylactic Reaction Office Visit 01/30/2014 1:50p [facility] Internal Maddie 250.00 Diabetes Mellitus Diana Manzo M.D. W/O Compl Type II Or Unspec Controlled 401.1 Hypertension Benign 305.1 Tobacco Use Disorder 715.09 Osteoarthrosis Generalized Multiple Sites 268.9 Vitamin D Deficiency Unspec Office Visit 09/14/2013 [facility] Internal Maddie 272.1 Hypertriglyceridemia Pure 11:50a [...] Impaired Fasting Glucose Office Visit 07/05/2013 2:30p [employer] Internal Maddie 112.1 Candidiasis The Medicine Wallace Manzo M.D. Vulva & Vagina 715.09 Osteoarthrosis Generalized Multiple Sites Office Visit 06/06/2013 1:50p [facility] Internal Maddie 715.09 Osteoarthrosis Diana Manzo M.D. Generalized Multiple Ccmob Sites 268.9 Vitamin D Deficiency Unspec Office Visit 03/08/2013 1:10p [facility] Internal Maddie V72.31 Routine Mine Utility Operator Diana Manzo M.D. Examination Ccmob V76.19 Screening Breast Exam Malignant Neoplasms Other 112.3 Candidiasis Skin & Nails 305.1 Tobacco Use Disorder 995.0 Other Anaphylactic Reaction V76.43 Screening Malignant Neoplasm Skin 781.91 Loss Of Height V76.12 Screening Mammogram Malig Fabian Other Office Visit 02/27/2013 10:30a [facility] Internal Maddie 715.09 Osteoarthrosis Diana Manzo M.D. Generalized Multiple Ccmob Sites 272.1 Hypertriglyceridemia Pure Office Visit 01/25/2013 10:10a [facility] Internal Maddie 250.00 Diabetes Mellitus Diana Manzo M.D. W/O Compl Type II Or Unspec Controlled 272.1 Hypertriglyceridemia Pure 305.1 Tobacco Use Disorder 401.9 Hypertension Unspec 715.09 Osteoarthrosis Generalized Multiple Sites V16.49 Family History Malignant Neoplasm Other V03.82 Streptococcus Pneumoniae Vaccination Spec Other Office Visit 12/27/2012 11:50a [facility] Internal Maddie 715.09 Osteoarthrosis Diana Manzo M.D. Generalized Multiple Ccmob Sites 477.9 Rhinitis Allergic Cause Unspec Office Visit 11/03/2012 10:10a [facility] Maddie Manzo, 616.3 Abscess Diana Fang M.D. Bartholins Gland 112.1 Candidiasis The Vulva & Vagina Office Visit 10/20/2012 10:50a [facility] Internal Maddie Manzo, 599.0 UTI Urinary Tract Medicine - Annalisa Villar Infection Site Not Spec 715.09 Osteoarthrosis Generalized Multiple Sites Office Visit 09/29/2012 11:50a [facility] Internal Maddie 715.09 Osteoarthrosis Diana Manzo M.D. Generalized Multiple Ccmob Sites 110.1 Dermatophytosis Nail 278.01 Obesity Morbid Office Visit 09/01/2012 9:30a [facility] Internal Maddie Manzo, 462 Pharyngitis Acute Medicine - Annalisa Villar 715.09 Osteoarthrosis Generalized Multiple Sites Office Visit 08/16/2012 9:50a [facility] Maddie 250.[address] [facility] Wallace Manzo M.D. W/O Compl Type II Or Unspec Controlled 466.0 Bronchitis Acute 564.00 Constipation Unspecified 401.9 Hypertension Unspec 272.1 Hypertriglyceridemia Pure 715.09 Osteoarthrosis Generalized Multiple Sites 305.1 Tobacco Use Disorder V04.81 Need For Prophylactic Vaccination & Inoculation/Influenza Office Visit 08/02/2012 10:10a [facility] Internal Maddie Manzo, 466.0 Bronchitis Acute Medicine - Annalias Villar 724.2 Lumbago 715.09 Osteoarthrosis Generalized Multiple Sites 564.00 Constipation Unspecified 455.6 Hemorrhoids Unspec W/O Complication Office Visit 07/26/2012 10:30a [facility] Internal Maddie 455.6 Hemorrhoids Unspec Diana Manzo M.D. W/O Complication Ccmob 564.00 Constipation Unspecified Office Visit 06/30/2012 3:10p [facility] Internal Medicine Maddie Manzo, 724.2 Lumbago - Annalisa Villar 715.98 Osteoarthrosis Unspec Genlzd Or Localized Other Spec Sites 276.7 Hyperpotassemia 788.33 Incontinence Mixed (Male) (Female) Office Visit 06/09/2012 9:45a [facility] Internal Maddie 715.09 Osteoarthrosis Diana [facility].D. [facility]24[facility] Lumbago 788.33 Incontinence Mixed (Male) (Female) Office Visit 05/26/2012 9:00a [facility] Maddie V72.31 Routine Mine Utility Operator Diana Manzo M.D. Examination Ccmob 305.1 Tobacco Use Disorder 724.2 Lumbago 788.33 Incontinence Mixed (Male) (Female) V76.19 Screening Breast Exam Malignant Neoplasms Other 781.91 Loss Of Height V06.1 Gtwhthpyqj-Rernrpd-Fqctbope Combined (DTaP) Office Visit 04/25/2012 9:00a [facility] Maddie Manzo, 496 COPD [facility] Obstruction Chronic Not Class Elsewhere 305.1 Tobacco Use Disorder 250.02 Diabetes Mellitus W/O Compl Type II Or Unspec Type Uncontrol Office Visit 03/29/2012 9:45a [facility] Maddie Manzo, 250.02 [facility] Mellitus W/O Compl Type II Or Unspec Type Uncontrol 272.1 Hypertriglyceridemia Pure 278.01 Obesity Morbid 790.21 Impaired Fasting Glucose Office Visit 03/24/2012 9:00a [facility] Maddie 401.9 Hypertension Unspec Medicine Wallace Manzo M.D. Ccmob 278.00 Obesity Unspec 715.09 Osteoarthrosis Generalized Multiple Sites 724.2 Lumbago 790.21 Impaired Fasting Glucose 305.1 Tobacco Use Disorder 496 COPD Airway Obstruction Chronic Not Class Elsewhere Plan of Treatment Future Appointment(s):05/01/2020 9:15 am - Bety Diallo DNP, RN, RADHA- at [facility]06/01/2019 11:30 am - Tamia Odom M.D. at [facility]05/15/2019 1:45 pm - Tamia Odom M.D. at [facility] [address]05/02/2019 - Bety Diallo DNP, RN, DIRECTOR OF PARTNER MARKETING- BCG47.33 Obstructive sleep apnea (adult) (pediatric)New Orders:Sleep-Homecare, Ordered: 05/02/19Comments:Continue CPAP Mask and supplies through [facility] [phone] up:1 yearRecommendations:Continue PAP device, Benefitting and compliant with treatment. Cleaning Wipe off mask daily (baby wipe-no scent, or warm water) Clean mask, tubing, filter, and water chamber weekly in mild no scent dish soap and water. Hang to dry. If you have any sleepiness while driving you MUST avoid operating a vehicle or machinery. If you have difficulty with your equipment, or need to replace your mask or hoses, please contact your homecare agency. A weight change of 20 pounds or more may have an effect onyour equipment; if you are experiencing problems please call for an appointment. If you have any further questions, please call the [facility] at [phone].A67.175 Nicotine dependence, cigarettes, uncomplicatedRecommendations:Recommend quitting, pt will try to quit prior to her orthopedic surgery.E66.9 Obesity, unspecifiedRecommendations:BMI 37.4 Continue with weight loss efforts
[2019-06-01] MEDS ORDERED: Acetaminophen TAB* 325 MG ONE (09:05)
[2019-06-01] MEDS ORDERED: Famotidine IV* 10 MG/ML 2 ML (20 mg) ONE (09:05)
[2019-06-01] MEDS ORDERED: Clindamycin 900 MG IVPREMIX(* 900 MG/50 ML SDV IV ONE (09:05)
[2019-06-01] MEDS ORDERED: Buffered Lidocaine 1% SYRIN* 1 ML/SYRINGE INTRADERM ONE (09:06)
[2019-06-01] MEDS ORDERED: ROPIVACAINE 5 MG/ML 30 ML BTL (0.5%) ONE ×2 (09:41→11:12)
[2019-06-01] MEDS ORDERED: Ropivacaine (OR use only) 2 MG/ML 10 ML ONE (09:41)
[2019-06-01] MEDS ORDERED: Ondansetron INJ* 2 MG/ML VIAL ONE (09:41)
[2019-06-01] MEDS ORDERED: Lidocaine 2% MPF* 2 ML VIAL ONE (09:41)
[2019-06-01] MEDS ORDERED: Propofol* 10 MG/ML 20 ML BTL ONE (09:41)
[2019-06-01] MEDS ORDERED: Dexamethasone IV* 4 MG/ML 1 ML (4 MG) ONE (09:41)
[2019-06-01] MEDS ORDERED: fentaNYL* 50 MCG/ML 2 ML VIAL (100 MCG VIAL) ONE ×4 (09:42→14:16)
[2019-06-01] MEDS ORDERED: KETAMINE HCL* 50 MG/ML 10 ML VIAL ONE (09:42)
[2019-06-01] MEDS ORDERED: Midazolam* 1 MG/ML 10 ML VIAL (10 MG) ONE (09:42)
[2019-06-01] MEDS ORDERED: Cisatracurium* 2 MG/ML MDV 5 ML ONE (11:37)
[2019-06-01] MEDS ORDERED: Propofol* 500 MG/50 ML BTL ONE (12:07)
[2019-06-01] MEDS ORDERED: Phenylephrine 40 MCG/ML SYRINGE ONE (12:09)
[2019-06-01] MEDS ORDERED: Naloxone* 0.4 MG/ML 1 ML VIAL IV PRN (12:41)
[2019-06-01] MEDS ORDERED: Ondansetron INJ* 2 MG/ML VIAL IV PRN ×2 (12:41→13:59)
[2019-06-01] MEDS ORDERED: Bisacodyl SUPP* 10 MG SUPP PR PRN (13:59)
[2019-06-01] MEDS ORDERED: Ondansetron ODT TAB* 4 MG PO PRN (13:59)
[2019-06-01] MEDS ORDERED: traMADol TAB* 50 MG PO PRN (13:59)
[2019-06-01] MEDS ORDERED: Acetaminophen TAB* 325 MG PO PRN (13:59)
[2019-06-01] MEDS ORDERED: Magnesium Hydroxide LIQ* 30 ML UDC PO PRN (13:59)
[2019-06-01] MEDS ORDERED: diPHENhydraMINE PO* 25 MG PO PRN (13:59)
[2019-06-01] MEDS ORDERED: traZODone TAB* 50 MG TAB PO PRN (13:59)
[2019-06-01] MEDS ORDERED: Cyclobenzaprine TAB* 10 MG PO PRN (13:59)
[2019-06-01] MEDS ORDERED: diPHENhydraMINE IV* 50 MG/ML 1 ml VIAL (BENADRYL) IV PRN (13:59)
[2019-06-01] MEDS ORDERED: Morphine INJ* 2 MG/ML 1 ML SYRINGE (TWO MG - NEW SYRINGE VERSION) IV PRN (13:59)
[2019-06-01] MEDS ORDERED: Methocarbamol TAB* 500 MG PO PRN (14:15)
[2019-06-01] MEDS ORDERED: Albuterol 2.5 MG/3 ML NEB.SOL* (0.083%) INH PRN (14:15)
[2019-06-01] MEDS ORDERED: Albuterol HFA INHALER* 8 gm MDI INH PRN (14:15)
[2019-06-01] MEDS ORDERED: Nicotine Inhaler* 10 MG AMP (NF) INH PRN (14:15)
[2019-06-01] MEDS: fentaNYL* 50 MCG/ML 2 ML VIAL (100 MCG VIAL) IV PRN ×2 (14:17→14:41)
[2019-06-01] MEDS ORDERED: HYDROmorphone INJ1* 1 MG/ML SYRINGE ONE (14:46)
[2019-06-01] MEDS: HYDROmorphone INJ1* 1 MG/ML SYRINGE IV PRN ×2 (14:47→15:08)
[2019-06-01] MEDS ORDERED: Dextrose 50% Syringe 50 ML* 25 GM/50 ML SYRINGE IV PUSH PRN (15:18)
--- NOTE | 2019-06-01 16:03 | PN ---
Progress Note - Progress Note Date of Service: 06/01/19 Note: Pt seen at bedside POD 0 sp LTH. She feels well, pain is controlled. Denies CP, SOB, dizziness, nausea or history of DVT. DF/PF intact, DP2+, sensation intact to light touch distally.
[2019-06-01] MEDS: Lactated Ringers 1000 ML Bag* 1,000 ML IV SCH (16:13)
[2019-06-01] MEDS: oxyCODONE/Acetamin 5/325 MG* TAB PO PRN (16:29)
--- NOTE | 2019-06-01 17:32 | CONS ---
[facility] MEDICINE CONSULTATION REPORT: DATE OF CONSULT: 06/01/19 PROVIDER: Joselyn Salazar NP. ATTENDING PHYSICIAN: Dr. Odom. CONSULTING PHYSICIAN: Dr. Sue Hughes (dictated by Joselyn Salazar NP). REASON FOR CONSULT: Co-management of chronic medical conditions. HISTORY OF PRESENT ILLNESS: Ms. Paige is a 54-year-old female with a past medical history significant for hypertension, COPD, asthma, high cholesterol, chronic back pain, lupus, diabetes, depression, anxiety, and history of sleep apnea; wears a CPAP who presented to [facility] for an elective left hip arthroplasty with Dr. Odom. Please see dictated H and P from Poly Jackson RPA, for complete details. In brief, the patient had ongoing pain, failed conservative measures; therefore, opted for an elective left total hip arthroplasty. In the immediate postoperative period, the patient has no complaints. The patient denies any chest pain, shortness of breath. Denies any nausea, vomiting, diarrhea, or abdominal pain. Denies any gross hematuria, dysuria, or focal weakness. Denies any shortness of breath, fever, or chills. The patient does complain of mild left hip pain postoperatively. Due to her chronic medical conditions, we were asked to help co-manage her care during this hospitalization. PAST MEDICAL HISTORY: 1. Hypertension. 2. COPD. 3. Asthma. 4. Increased cholesterol. 5. Chronic back pain. 6. Lupus. 7. Diabetes. 8. Depression. 9. Anxiety. 10. Sleep apnea, wears CPAP. PAST SURGICAL HISTORY: 1. Cataract surgery, bilateral eyes. 2. . 3. Appendectomy. 4. Cholecystectomy. 5. Hernia repair. HOME MEDICATIONS: Include: 1. Gabapentin 400 mg p.o. t.i.d. 2. Metformin 500 mg p.o. daily. 3. Lisinopril/hydrochlorothiazide 20 mg/12.5 mg p.o. daily. 4. Potassium ER 20 mEq p.o. daily. 5. Nicotrol 10 mg every 3 hours as needed. 6. Clonazepam 0.5 mg 1 in the a.m., 1 in the p.m., and 2 at bedtime. 7. Escitalopram 20 mg p.o. daily. 8. Amlodipine 2.5 mg p.o. daily. 9. Fenofibrate 160 mg p.o. daily. 10. Albuterol inhaler 4 times a day p.r.n. 11. Omeprazole 40 mg p.o. daily. 12. Nateglinide 60 mg t.i.d. 13. Trazodone 300 mg at bedtime. 14. Methocarbamol 500 mg 2 tablets in the a.m., 2 tablets in the p.m., and 1 tablet at noon. ALLERGIES: 1. BEE VENOM. 2. ADHESIVE TAPE. 3. MELOXICAM. 4. TRAMADOL. 5. PENICILLIN. 6. SULFA. 7. LATEX. FAMILY HISTORY: Father with IN. Mother with diabetes. Father with lung and colon cancer. SOCIAL HISTORY: The patient lives alone. She walks with a cane. She currently smokes a quarter to a half pack a day. She denies any alcohol use. She does report occasional marijuana use. Surrogate decision maker in the event she is unable to make her own decisions is her daughter, Misti. She is a full code. REVIEW OF SYSTEMS: An 11-point review of systems is completed. All pertinent positives are mentioned in the HPI; otherwise, were negative. PHYSICAL EXAM: General: At this time, Ms. Paige is alert and oriented, resting on the stretcher in PACU. She does complain of left hip pain. She is not in any acute distress. HEENT: Head is atraumatic, normocephalic. Eyes: EOMs are intact. Sclerae anicteric and not pale. Oral mucosa appeared to be moist. Neck is supple. Lungs are clear to auscultation bilaterally. No wheezes, rales, or rhonchi. Cardiac: S1, S2. Regular rate and rhythm. No murmurs, rubs, or gallops. Abdomen is obese, soft, nontender. Bowel sounds are present x4. Extremities: Pedal pulses are +2 bilaterally. She does have minimal movement of the lower extremities at this time. She is just postop at this time of evaluation. Skin: She does have a dressing that is dry and intact to her left hip. Neurologic: She is awake, alert, oriented x3. Speech is clear. Thought process is intact. There are no gross focal deficits. DIAGNOSTIC STUDIES/LAB DATA: CBC from 05/19/19: WBCs 12.2, RBCs 4.61, hemoglobin 11.9, hematocrit 37, platelet count was clumped. She had an INR of 0.94. BMP from 05/19/19: Sodium 141, potassium 4.0, chloride 104, carbon dioxide was 32, anion gap was 5, creatinine 0.50, BUN was 14, glucose was 94, calcium was 9.4. Urine was within normal limits. IMPRESSION AND PLAN: Ms. Paige is a 54-year-old female with a past medical history significant for hypertension, chronic obstructive pulmonary disease, asthma, high cholesterol, diabetes, depression, anxiety, and chronic back pain who presented to [facility] for an elective left total hip arthroplasty with Dr. Odom. Due to her chronic medical conditions, we were asked to co-manage her care during her hospitalization. Our recommendations are as follows: 1. Status post left hip arthroplasty. PT/OT per orthopedics. Management per orthopedics. DVT prophylaxis and pain management per orthopedics. 2. Hypertension. At this time, I would hold her hydrochlorothiazide and continue her lisinopril 20 mg p.o. daily. I would continue her amlodipine 2.5 mg p.o. daily. 3. Asthma. She can use albuterol inhaler 4 times a day as needed for shortness of breath. 4. Gastroesophageal reflux disease. She should continue omeprazole 40 mg p.o. daily. 5. Diabetes. I would hold her metformin. We will place her on lispro sliding scale with Accu-Chek a.c. 6. High cholesterol. She should continue her home medications as previously prescribed. 7. Obstructive sleep apnea. The patient brought her own CPAP machine. She should continue this during her hospitalization. 8. Anxiety and depression. The patient can have her clonazepam 0.5 mg as needed and she should continue her escitalopram 20 mg p.o. daily. 9. FEN. She should have a consistent carb diet, heart healthy. 10. DVT prophylaxis. As per orthopedics. 11. Code status. She is a full code. TIME SPENT: Time spent on this consultation was approximately 60 minutes, greater than half that time was spent at the bedside reviewing events leading thus far to her hospitalization, performing physical exam, and reviewing my plan of care. I have discussed this with my attending, Dr. Sue Hughes; she is in agreement with my plan. JOSELYN SALAZAR, PHARMACEUTICAL DETAILER [id number]/[facility] #: [id number] [facility] HOSPITALMarga
[2019-06-01] MEDS: Insulin LISPRO* 1 UNITS UNIT SUBCUT SCH (17:53)
--- NOTE | 2019-06-01 17:55 | OP ---
Operative Report - Blank - Operative Report Date of Operation: 06/01/19 Note: JUAN FRANCISCO RODRIGUEZ 1965 Date Of Surgery: 06/01/19 Tamia Odom MD Slot Floorperson: Sebas DE LA CRUZ did help throughout the procedure with preparation of the hip, wound retraction, manipulation of the hip, and wound closure. Anesthesiologist: Kim Melvin MD Anesthesia Type: Spinal Preoperative Diagnosis: Left severe degenerative osteoarthritis of the hip Postoperative Diagnosis: As above Procedure Performed: Left Total Hip Arthroplasty Complications: None Specimen: Femoral head and acetabular reamings sent to pathology. Hardware used: This is uncemented Michelle total hip arthroplasty hardware for the femur a size 3 accolade II with 127 neck angle femoral component, for the acetabulum a size 46C trident II tritanium cluster hole shell, a 15 mm screw, for the insert a size 32C polyethylene trident x3 insert, and for the femoral head a size 32+ 0 biolox ceramic V40 femoral head. Brief history/Indication: JUAN FRANCISCO RODRIGUEZ was known in clinic and had a history of severe left hip pain. She failed conservative treatment with anti- inflammatories, pain pills, intra-articular injections and physical therapy. She elected to undergo left total hip arthroplasty due to continued pain and decreased quality of life. Radiographs showed severe end stage osteoarthritis of the hip with bone on bone contact. Informed consent was obtained from the patient. She understood the risks of surgery included but were not limited to: bleeding, infection, damage to nearby structures, intraoperative fracture, nerve palsy, failure of the hardware, early loosening, stiffness or loss of motion, dislocation, leg length discrepancy, anesthesia complications, stroke, heart attack, blood clot and . She wished to proceed. Intra-Operative findings: Intraoperatively the patient was noted to have severe loss of cartilage of the acetabulum and femoral head. Description of the Procedure: JUAN FRANCISCO RODRIGUEZ was identified in the preanesthesia unit. Her left hip was marked as the correct operative side. Informed consent was signed and placed in the chart. The patient was taken to the operating room and placed under anesthesia without complication. A wagner catheter was placed. The patient was placed on the peg board with all bony prominences well padded. The left lower extremity was prepped and draped in the usual sterile fashion. Preoperative time -out was made to correctly identify the patient, side and site. Appropriate intraoperative antibiotics were given within one hour of incision. A standard posterior incision was made and carried sharply down to the lateral fascia. A new 10 blade was used to make an incision in the fascia in line with the skin incision. A charnley retractor was placed. The piriformis and conjoined tendons were identified and elevated off the posterolateral femur using electrocautery. These were tagged with number 5 Ethibond. Next electrocautery was used to make a posterolateral capsular flap and this was tagged with number 5 Ethibonds. The hip was carefully dislocated. Lesser trochanter to the center of the femoral head was measured at 52 mm. The oscillating saw was used to make the femoral neck cut. The femoral head was carefully removed. The femur was retracted anteriorly and the acetabular retractors were placed. Long-handled knife was used to sharply remove any remaining labrum from the acetabular rim. The acetabulum was sequentially reamed up to a size 45. A bleeding subchondral bone bed was obtained. A trial liner was placed and had excellent fit and stability. A 46C trident II tritanium cup with a single 15 mm screw was placed and had excellent stability with appropriate anteversion and abduction angle. A size 32 C polyethylene liner was impacted into the acetabular shell. The liner was checked for stability and was stable. Next attention was turned to preparation of the femoral canal. A canal finder was used to enter the proximal femur. The femoral canal was sequentially broached up to a size 3 femoral broach trial. A trial neck and 32 +0 trial femoral head was chosen. Lesser trochanter to center of the femoral head measurement was satisfactory. The hip was reduced and taken through a range of motion. The hip was stable in all positions with good soft tissue tension and appropriate leg lengths. The hip was dislocated and all trials were removed. The final implant chosen was a accolade II size 3 with 127 neck angle. This stem was impacted into the femoral canal without difficulty. The stem was stable with appropriate anteversion. The femoral head chosen was a 32 +0 ceramic head. The head was impacted onto the femoral neck without difficulty. The final lesser trochanter to center of the femoral head measurement was satisfactory. The hip was reduced and taken through a range of motion. The hip was stable in all positions with good soft tissue tension and appropriate leg lengths. The hip was copiously irrigated with sterile saline. The previously tagged capsule and tendons were repaired to the posterolateral femur through two trochanteric drill holes. The lateral fascia layer was closed using number 1 vicryls. The rest of the incision was closed in a layered fashion using 0 and 2-0 vicryls. The skin was closed using 3-0 monocryl suture and Dermabond. Sterile adaptic, 4x4s and paper tape was used to cover the incision. The patients anesthesia was reversed without difficulty. She was taken to the PACU in stable condition. Intended weight-bearing will be as tolerated with posterior hip precautions.
[2019-06-01] MEDS: Clindamycin 600 MG IVPREMIX(* 600 MG/50 ML SDV IV SCH (20:21)
[2019-06-01] MEDS: Betaxolol 0.5 %* OPHTH.SOLN 5 ML BOTH EYES SCH (20:24)
[2019-06-01] MEDS: Magnesium Hydroxide LIQ* 30 ML UDC PO SCH (20:24)
[2019-06-01] MEDS: Apixaban* 2.5 MG TAB PO SCH (20:25)
[2019-06-01] MEDS: Latanoprost 0.005%* 2.5 ml BTL BOTH EYES SCH (20:25)
[2019-06-01] MEDS: Mirtazapine TAB* 15 MG PO SCH (20:25)
[2019-06-01] MEDS: Gabapentin CAP(*) 400 MG PO SCH (20:26)
[2019-06-01] MEDS: Docusate CAP* 100 MG PO SCH (20:26)
[2019-06-01] MEDS: clonazePAM TAB(*) 1 MG PO SCH (20:26)
[2019-06-01] MEDS: Ziprasidone * 20 MG CAP (generic Geodon) PO SCH (20:27)
[2019-06-01] MEDS ORDERED: metFORMIN* 500 MG TAB PO SCH (21:00)
[2019-06-01] MEDS: oxyCODONE TAB* 5 MG TAB PO PRN (22:14)
[2019-06-02] MEDS: Lactated Ringers 1000 ML Bag* 1,000 ML IV SCH (03:24)
[2019-06-02] MEDS: Clindamycin 600 MG IVPREMIX(* 600 MG/50 ML SDV IV SCH ×2 (03:25→13:01)
[2019-06-02] MEDS: oxyCODONE/Acetamin 5/325 MG* TAB PO PRN ×5 (03:49→21:15)
[2019-06-02 07:12] LABS: Hematocrit 29 % (35-47); Hemoglobin 9.6 g/dL (12.0-16.0); Mean Platelet Volume 10.3 fL (7.4-10.4); Platelet Count 118 10^3/uL (150-450)
[2019-06-02 07:29] LABS: Calcium 8.6 mg/dL (8.6-10.3); EGFR African American 200.5 (>60); EGFR Non-African American 165.7 (>60); Potassium 3.2 mmol/L (3.5-5.0)
[2019-06-02] MEDS: Insulin LISPRO* 1 UNITS UNIT SUBCUT SCH ×3 (07:44→17:14)
[2019-06-02] MEDS: Docusate CAP* 100 MG PO SCH ×2 (08:08→19:33)
[2019-06-02] MEDS: Apixaban* 2.5 MG TAB PO SCH ×2 (08:09→19:33)
[2019-06-02] MEDS: Cetirizine* 10 MG TAB PO SCH (08:09)
[2019-06-02] MEDS: Pantoprazole TAB * 40 MG TAB PO SCH (08:09)
[2019-06-02] MEDS: Gabapentin CAP(*) 400 MG PO SCH ×3 (08:09→19:33)
[2019-06-02] MEDS: Lisinopril TAB* 10 MG PO SCH (08:09)
[2019-06-02] MEDS: clonazePAM TAB(*) 0.5 MG PO SCH ×2 (08:09→14:20)
[2019-06-02] MEDS: Potassium Chlor TAB* 20 MEQ TAB.ER PO SCH (08:09)
[2019-06-02] MEDS: Escitalopram * 20 MG TABLET PO SCH (08:09)
[2019-06-02] MEDS: Magnesium Hydroxide LIQ* 30 ML UDC PO SCH ×2 (08:10→19:44)
[2019-06-02] MEDS ORDERED: Potassium Chloride* LIQUID 20 MEQ/15 ML UDC PO ONE (08:29)
[2019-06-02] MEDS ORDERED: Lisinopril/HCTZ 20/12.5(NF) TAB PO SCH (09:00)
[2019-06-02] MEDS: Betaxolol 0.5 %* OPHTH.SOLN 5 ML BOTH EYES SCH ×2 (10:44→19:34)
--- NOTE | 2019-06-02 10:45 | PN ---
Subjective Date of Service: 06/02/19 Interval History: Patient is having relatively severe pain in hip, worse with walking and alleviated with rest and medication. Patient denies F/C, N/V, abdominal pain, dizziness, palpitations, CP, SOB. Patient denies numbness or tingling in legs. Family History: Unchanged from Admission Social History: Unchanged from Admission Past Medical History: Unchanged from Admission Objective Active Medications: Acetaminophen (Tylenol Tab*) 975 mg PO Q8H PRN PRN Reason: PAIN - MILD Albuterol (Ventolin 2.5 Mg/3 Ml Neb.Delfina*) 2.5 mg INH Q4H PRN PRN Reason: SOB/WHEEZING Albuterol (Ventolin Hfa Inhaler*) 1 puff INH Q4H PRN PRN Reason: SOB/WHEEZING Amlodipine Besylate (Norvasc Tab*) 2.5 mg PO 1300 MICHAEL Apixaban (Eliquis*) 2.5 mg PO BID [facility] Last Admin: 06/02/19 08:09 Dose: 2.5 mg Betaxolol HCl (Betoptic 0.05%*) 1 drop BOTH EYES BID [facility] Last Admin: 06/01/19 20:24 Dose: 1 drop Bisacodyl (Dulcolax Supp*) 10 mg NM DAILY PRN PRN Reason: constipation Cetirizine HCl (Zyrtec*) 10 mg PO QAM [facility] Last Admin: 06/02/19 08:09 Dose: 10 mg Clonazepam (Klonopin Tab(*)) 0.5 mg PO BID@0900,1400 [facility] Last Admin: 06/02/19 08:09 Dose: 0.5 mg Clonazepam (Klonopin Tab(*)) 1 mg PO BEDTIME [facility] Last Admin: 06/01/19 20:26 Dose: 1 mg Cyclobenzaprine HCl (Flexeril Tab*) 10 mg PO TID PRN PRN Reason: SPASMS Dextrose (D50w Syringe 50 Ml*) 12.5 gm IV PUSH .FOR FS < 60 - SS PRN PRN Reason: FS < 60 Diphenhydramine HCl (Benadryl Iv*) 25 mg IV Q6H PRN PRN Reason: itching Diphenhydramine HCl (Benadryl Po*) 25 mg PO Q6H PRN PRN Reason: itching Docusate Sodium (Colace Cap*) 100 mg PO BID [facility] Last Admin: 06/02/19 08:08 Dose: 100 mg Escitalopram Oxalate (Lexapro *) 20 mg PO QAM [facility] Last Admin: 06/02/19 08:09 Dose: 20 mg Fenofibrate (Tricor 160 Mg) 160 mg PO 1330 [facility] Gabapentin (Neurontin Cap(*)) 400 mg PO TID [facility] Last Admin: 06/02/19 08:09 Dose: 400 mg Clindamycin HCl/Dextrose (Cleocin 600 Mg Ivpremix(*) Sdv) 600 mg in 50 mls @ 100 mls/hr IV Q8H [facility] Stop: 06/02/19 12:29 Last Admin: 06/02/19 03:25 Dose: 100 mls/hr Lactated Ringer's (Lactated Ringers 1000 Ml Bag*) 1,000 mls @ 100 mls/hr IV PER RATE [facility] Last Admin: 06/02/19 03:24 Dose: 100 mls/hr Insulin Human Lispro (Humalog*) 0 units SUBCUT AC [facility]; Protocol Last Admin: 06/02/19 07:44 Dose: Not Given Lactulose (Lactulose*) 30 ml PO Q6H PRN PRN Reason: constipation Latanoprost (Xalatan 0.005%*) 1 drop BOTH EYES BEDTIME [facility] Last Admin: 06/01/19 20:25 Dose: 1 drop Lisinopril (Prinivil Tab*) 20 mg PO DAILY [facility] Last Admin: 06/02/19 08:09 Dose: 20 mg Magnesium Hydroxide (Milk Of Magnesia Liq*) 30 ml PO BID [facility] Last Admin: 06/02/19 08:10 Dose: Not Given Magnesium Hydroxide (Milk Of Magnesia Liq*) 30 ml PO Q6H PRN PRN Reason: constipation Methocarbamol (Robaxin Tab*) 500 mg PO Q6H PRN PRN Reason: PAIN Last Admin: 06/01/19 17:53 Dose: 500 mg Mirtazapine (Remeron Tab*) 15 mg PO BEDTIME [facility] Last Admin: 06/01/19 20:25 Dose: 15 mg Morphine Sulfate (Morphine Inj (Syringe))*) 2 mg IV Q2H PRN PRN Reason: PAIN - UNRELIEVED Nicotine (Nicotine Inhaler*) 10 mg INH Q3H PRN PRN Reason: smoking Ondansetron HCl (Zofran Inj*) 4 mg IV Q6H PRN PRN Reason: nausea Ondansetron HCl (Zofran Odt Tab*) 4 mg PO Q6H PRN PRN Reason: NAUSEA Oxycodone HCl (Roxycodone Tab*) 10 mg PO Q4H PRN PRN Reason: PAIN - SEVERE Last Admin: 06/01/19 22:14 Dose: 10 mg Oxycodone/Acetaminophen (Percocet 5/325 Tab*) 2 tab PO Q4H PRN PRN Reason: PAIN - MODERATE Last Admin: 06/02/19 08:10 Dose: 2 tab Pantoprazole Sodium (Protonix Tab*) 40 mg PO QAM [facility] Last Admin: 06/02/19 08:09 Dose: 40 mg Potassium Chloride (Klor Con Er Tab*) 20 meq PO QAM [facility] Last Admin: 06/02/19 08:09 Dose: 20 meq Tramadol HCl (Ultram*) 50 mg PO Q6H PRN PRN Reason: PAIN Trazodone HCl (Desyrel Tab*) 25 mg PO BEDTIME PRN PRN Reason: insomnia Ziprasidone (Geodon (Generic) *) 60 mg PO BEDTIME [facility] Last Admin: 06/01/19 20:27 Dose: 60 mg Vital Signs - 8 hr 06/02/19 06/02/19 06/02/19 03:32 03:49 06:08 Temperature 99.2 F Pulse Rate 92 Respiratory 17 18 17 Rate Blood Pressure 131/76 (mmHg) O2 Sat by Pulse 93 Oximetry 06/02/19 06/02/19 06/02/19 07:33 07:44 08:09 Temperature 98.5 F Pulse Rate 86 Respiratory 20 20 16 Rate Blood Pressure 136/76 (mmHg) O2 Sat by Pulse 92 Oximetry 06/02/19 08:10 Temperature Pulse Rate Respiratory 16 Rate Blood Pressure (mmHg) O2 Sat by Pulse Oximetry Oxygen Devices in Use Now: None Appearance: Patient is a 54yo female who appears stated age and is sitting in the bed in NAD. Eyes: No Scleral Icterus, PERRLA Ears/Nose/Mouth/Throat: NL Teeth, Lips, Gums, Clear Oropharnyx, Mucous Membranes Moist Neck: NL Appearance and Movements; NL JVP, Trachea Midline Respiratory: Symmetrical Chest Expansion and Respiratory Effort, Clear to Auscultation Cardiovascular: NL Sounds; No Murmurs; No JVD, RRR, No Edema Abdominal: NL Sounds; No Tenderness; No Distention, No Hepatosplenomegaly Lymphatic: No Cervical Adenopathy Extremities: No Edema, No Clubbing, Cyanosis Skin: No Nodules or Sclerosis, - - Left hip incision covered in bulky dressing. CDI Neurological: Alert and Oriented x 3, NL Sensation, NL Muscle Strength and Tone , - - CN II-XII intact. Result Diagrams: 06/02/19 06:55 06/02/19 06:55 Assess/Plan/Problems-Billing Assessment: Patient is a 54yo female with a PMH for Lupus, COPD, HTN, MYA, here S/P LTHA and is doing well except for uncontrolled pain. - Patient Problems (1) Post-operative state Current Visit: Yes Status: Acute Code(s): Z98.890 - OTHER SPECIFIED POSTPROCEDURAL STATES SNOMED Code(s): 30964502 Comment: - Management per Orthopedics. - PT/OT, Pain control, bowel regiment - Trend H/H. (2) COPD (chronic obstructive pulmonary disease) Current Visit: Yes Status: Acute Code(s): J44.9 - CHRONIC OBSTRUCTIVE PULMONARY DISEASE, UNSPECIFIED SNOMED Code(s): 94219467 Comment: - Not in exacerbation - PRN inhalers. (3) DM II (diabetes mellitus, type II), controlled Current Visit: Yes Status: Acute Code(s): E11.9 - TYPE 2 DIABETES MELLITUS WITHOUT COMPLICATIONS SNOMED Code(s): 22346423 Comment: - FSBG and SSI - D/C and switch to Metformin if persistent control. (4) HTN (hypertension) Current Visit: Yes Status: Acute Code(s): I10 - ESSENTIAL (PRIMARY) HYPERTENSION SNOMED Code(s): 26767181 Comment: - Normotensive, continue amlodipine and lisinopril. (5) HLD (hyperlipidemia) Current Visit: Yes Status: Acute Code(s): E78.5 - HYPERLIPIDEMIA, UNSPECIFIED SNOMED Code(s): 36581361 Comment: - Continue fenofibrate. (6) Lupus Current Visit: Yes Status: Acute Code(s): M32.9 - SYSTEMIC LUPUS ERYTHEMATOSUS, UNSPECIFIED SNOMED Code(s): 167603381 Comment: - No current flare. - On no immunomodulators. (7) DVT prophylaxis Current Visit: Yes Status: Acute Code(s): Z29.9 - ENCOUNTER FOR PROPHYLACTIC MEASURES, UNSPECIFIED SNOMED Code(s): 699852495 Comment: - Apixaban (8) Full code status Current Visit: Yes Status: Acute Code(s): Z78.9 - OTHER SPECIFIED HEALTH STATUS SNOMED Code(s): 223919696 Status and Disposition: Inpatient, management per orthopedics
[2019-06-02] MEDS: oxyCODONE TAB* 5 MG TAB PO PRN (10:49)
--- NOTE | 2019-06-02 11:28 | PN ---
Progress Note - Progress Note Date of Service: 06/02/19 SOAP: Subjective: [] Patient seen OOB in chair, did fairly well with therapy today but doesnt feel she can navigate stairs well enough.. Feels she will likely be ready to go home tomorrow. Denies SOB, CP, palpitations or dizziness. She has chronic back pain and takes baseline Lortab at home, feels Percocet working better for hip pain. Objective: [] Vital Signs Temp 98.5 F 06/02/19 07:33 Pulse 86 06/02/19 07:33 Resp 16 06/02/19 10:49 BP 136/76 06/02/19 07:33 Pulse Ox 92 06/02/19 07:33 Intake & Output 06/01/19 06/02/19 06/02/19 18:59 06:59 18:59 Intake Total 1800 2310 826 Output Total 50 1100 Balance 1750 1210 826 Weight 178 lb Intake: IV Fluids 1800 990 706 ABX - CLINDAMYCIN 52 LR 1800 990 654 IVPB 100 ABX - CLINDAMYCIN 100 Oral 1220 120 Output: Scott 50 1100 Other: Date of Last Bowel 06/02/19 Movement # Bowel Movements 1 Estimated Stool Amount Medium Laboratory Results - last 24 hr 06/01/19 06/01/19 06/02/19 09:31 16:34 06:55 Hgb 9.6 L Hct 29 L Plt Count 118 L MPV 10.3 Sodium Potassium Chloride Carbon Dioxide Anion Gap BUN Creatinine Est GFR ( Amer) Est GFR (Non-Af Amer) BUN/Creatinine Ratio Glucose POC Glucose (mg/dL) 97 175 H Calcium 06/02/19 06:55 Hgb Hct Plt Count MPV Sodium 139 Potassium 3.2 L Chloride 105 Carbon Dioxide 30 Anion Gap 4 BUN 12 Creatinine 0.40 L Est GFR ( Amer) 200.5 Est GFR (Non-Af Amer) 165.7 BUN/Creatinine Ratio 30.0 H Glucose 122 H POC Glucose (mg/dL) Calcium 8.6 Left hip dressing dry and intact +DF left ankle calf NT and soft sensation and circulation intact distally Assessment: []s/p Left total hip arthroplasty POD #1 Plan: []PT/OT WBAT LLE Eliquis for DVt prophy Percocet for pain and for D/c home Dressing change 06/03 Probable d/c home tomorrow
[2019-06-02] MEDS: amLODIPine TAB* 5 MG PO SCH (12:55)
[2019-06-02] MEDS: clonazePAM TAB(*) 1 MG PO SCH (19:32)
[2019-06-02] MEDS: Mirtazapine TAB* 15 MG PO SCH (19:33)
[2019-06-02] MEDS: Ziprasidone * 20 MG CAP (generic Geodon) PO SCH (19:34)
[2019-06-02] MEDS: Latanoprost 0.005%* 2.5 ml BTL BOTH EYES SCH (19:34)
[2019-06-03] MEDS: oxyCODONE TAB* 5 MG TAB PO PRN ×3 (00:24→18:18)
[2019-06-03] MEDS: oxyCODONE/Acetamin 5/325 MG* TAB PO PRN ×4 (04:04→20:56)
[2019-06-03 05:51] LABS: Hematocrit 29 % (35-47); Hemoglobin 9.6 g/dL (12.0-16.0); Mean Platelet Volume 10.6 fL (7.4-10.4); Platelet Count 122 10^3/uL (150-450)
[2019-06-03] MEDS: Insulin LISPRO* 1 UNITS UNIT SUBCUT SCH ×3 (08:27→18:19)
[2019-06-03] MEDS: clonazePAM TAB(*) 0.5 MG PO SCH ×2 (08:33→13:34)
[2019-06-03] MEDS: Potassium Chlor TAB* 20 MEQ TAB.ER PO SCH (08:33)
[2019-06-03] MEDS: Docusate CAP* 100 MG PO SCH ×2 (08:33→20:55)
[2019-06-03] MEDS: Escitalopram * 20 MG TABLET PO SCH (08:33)
[2019-06-03] MEDS: Cetirizine* 10 MG TAB PO SCH (08:34)
[2019-06-03] MEDS: Pantoprazole TAB * 40 MG TAB PO SCH (08:34)
[2019-06-03] MEDS: Apixaban* 2.5 MG TAB PO SCH ×2 (08:35→20:56)
[2019-06-03] MEDS: Gabapentin CAP(*) 400 MG PO SCH ×3 (08:35→20:56)
[2019-06-03] MEDS: Betaxolol 0.5 %* OPHTH.SOLN 5 ML BOTH EYES SCH ×2 (08:36→20:55)
[2019-06-03] MEDS: Magnesium Hydroxide LIQ* 30 ML UDC PO SCH ×2 (08:44→20:55)
[2019-06-03] MEDS: Lisinopril TAB* 10 MG PO SCH (08:44)
--- NOTE | 2019-06-03 09:39 | PN ---
Progress Note - Progress Note Date of Service: 06/03/19 SOAP: Subjective: Pt. is alert, reports pain is 6/10 - she was unable to master stairs in PT. Objective: Vital Signs: Temp Pulse Resp BP Pulse Ox 98.2 F 87 16 106/63 92 06/03/19 07:31 06/03/19 07:31 06/03/19 08:35 06/03/19 07:31 06/03/19 07:31 Laboratory Results - last 24 hr 06/02/19 06/02/19 06/03/19 12:18 17:08 05:37 Hgb 9.6 L Hct 29 L Plt Count 122 L MPV 10.6 H POC Glucose (mg/dL) 135 H 104 H LLE - dressing changed, inc c/d/i. distally nvi. Assessment: 54 yo F pod 2 s/p LTHA Plan: wbat LLE post hip precautions pain uncontrolled and needs more PT for stairs at home plan d/c to home with vns 06/04
[2019-06-03] MEDS: amLODIPine TAB* 5 MG PO SCH (13:34)
[2019-06-03] MEDS: Ziprasidone * 20 MG CAP (generic Geodon) PO SCH (20:54)
[2019-06-03] MEDS: Mirtazapine TAB* 15 MG PO SCH (20:55)
[2019-06-03] MEDS: clonazePAM TAB(*) 1 MG PO SCH (20:55)
[2019-06-03] MEDS: Latanoprost 0.005%* 2.5 ml BTL BOTH EYES SCH (20:55)
[2019-06-04 05:29] LABS: Hematocrit 30 % (35-47); Hemoglobin 9.6 g/dL (12.0-16.0); Mean Platelet Volume 10.6 fL (7.4-10.4); Platelet Count 126 10^3/uL (150-450)
[2019-06-04] MEDS: oxyCODONE/Acetamin 5/325 MG* TAB PO PRN ×2 (07:14→11:14)
[2019-06-04] MEDS: Cetirizine* 10 MG TAB PO SCH (08:05)
[2019-06-04] MEDS: clonazePAM TAB(*) 0.5 MG PO SCH (08:05)
[2019-06-04] MEDS: Potassium Chlor TAB* 20 MEQ TAB.ER PO SCH (08:05)
[2019-06-04] MEDS: Docusate CAP* 100 MG PO SCH (08:05)
[2019-06-04] MEDS: Gabapentin CAP(*) 400 MG PO SCH (08:06)
[2019-06-04] MEDS: Escitalopram * 20 MG TABLET PO SCH (08:06)
[2019-06-04] MEDS: Betaxolol 0.5 %* OPHTH.SOLN 5 ML BOTH EYES SCH (08:06)
[2019-06-04] MEDS: Apixaban* 2.5 MG TAB PO SCH (08:06)
[2019-06-04] MEDS: Pantoprazole TAB * 40 MG TAB PO SCH (08:06)
[2019-06-04] MEDS: Lisinopril TAB* 10 MG PO SCH (08:07)
[2019-06-04] MEDS: Insulin LISPRO* 1 UNITS UNIT SUBCUT SCH (08:08)
[2019-06-04] MEDS: Magnesium Hydroxide LIQ* 30 ML UDC PO SCH (08:15)
--- NOTE | 2019-06-04 09:52 | PN ---
Progress Note - Progress Note Date of Service: 06/04/19 SOAP: Subjective: Pt. is alert, reports pain is much improved from yesterday. She feels she is ready to go home today. Objective: Vital Signs Temp 99.3 F 06/04/19 07:38 Pulse 92 06/04/19 07:38 Resp 16 06/04/19 08:06 BP 126/74 06/04/19 07:38 Pulse Ox 95 06/04/19 07:38 Intake & Output 06/03/19 06/04/19 06/04/19 18:59 06:59 18:59 Intake Total 860 780 360 Output Total 1350 600 400 Balance -490 180 -40 Intake: Oral 860 780 360 Output: Urine 1350 600 400 Other: # Bowel Movements 1 Estimated Stool Amount Medium General: Pt alert and oriented x3. NAD LLE - dressing c/d/i. +df/pf. calf soft and non tender distally nvi. Assessment: 54 yo F pod 3 s/p LTHA Plan: wbat LLE post hip precautions pain controlled plan d/c to home with vns today
--- NOTE | 2019-06-04 09:56 | DS ---
Orthopedic Discharge Summary - Discharge Summary Date of Admission:06/01/19 Date of Discharge: 06/04/2019 Date of Surgery: 06/01/2019 Attending Orthopedic Provider: Dr. Odom Pre-operative Diagnosis: Left hip osteoarthrits Operative Procedure: Left total hip arthroplasty Disposition of Patient: Good, home Condition of Patient: Good History: JUAN FRANCISCO RODRIGUEZ is a 54 year old F with years of increasingly severe left hip pain. Patient has failed conservative management and has elected to undergo a left total hip replacement Hospital Course: JUAN FRANCISCO was admitted to [facility] on 06/01/19. Patient underwent a left total hip arthroplasty without complication followed by a brief recovery in PACU and transfer to the Short Stay Surgical Unit in stable condition. Our hospitalist service, physical therapy and occupational therapy also participated in this patients care. Post-op day 1: patient was alert and in no acute distress. Dressing was clean, dry and intact. Operative extremity dorsiflexion and plantarflexion intact, sensation intact to light touch distally, DP2+. Post-op day two: dressing was changed, incision was clean , dry and intact. Pt continued to have trouble with stairs and pain was not under control. She attended PT to work on stairs. POD 3. Pt was doing well with stairs and pain was controlled. Patient was deemed to be medically and orthopedically stable for discharge. Physical therapy goals were met. Home Medications Medication Instructions Recorded Confirmed Type Saul/D3/Mag11/Zinc/Manager Dish/Bradly/Bor 1 tab PO QAM 10/21/16 06/01/19 History [Caltrate 600+D Plus Mortgage Loan Interviewer 600-800 mg-Unit] Lisinopril/Hydrochlorothiazide 1 tab PO QAM 10/21/16 06/01/19 History Zestoretic 20-12.5 mg- Mirtazapine TAB* [Remeron TAB*] 15 mg PO BEDTIME 10/21/16 06/01/19 History Potassium Chlor TAB* [Klor Con ER 20 meq PO QAM 10/21/16 06/01/19 History TAB*] clonazePAM TAB(*) [KlonoPIN TAB(*)] 0.5 mg PO SEE INSTRUCTIONS 10/21/16 History Methocarbamol* 500 mg PO Q6H PRN MDD 5 11/11/16 06/01/19 History Omeprazole [Prilosec] 40 mg PO QAM 12/03/17 06/01/19 History Amlodipine Besylate [Norvasc 2.5 2.5 mg PO 1300 01/04/18 06/01/19 History mg tab] [place] 7.5-325 Tablet 1 tab PO Q4H PRN MDD 6 01/04/18 06/01/19 History Trazodone HCl 300 mg PO BEDTIME 10/31/18 06/01/19 History Cetirizine* [ZyrTEC 10 MG TAB*] 10 mg PO QAM 03/03/19 06/01/19 History Gabapentin CAP(*) [Neurontin 400 400 mg PO TID 03/03/19 06/01/19 History mg CAP(*)] Ziprasidone HCl [Geodon] 60 mg PO BEDTIME 03/03/19 06/01/19 History metFORMIN* [Glucophage 500 MG TAB 500 mg PO BID 03/03/19 06/01/19 History *] Betoptic 0.5%* 1 drp BOTH EYES BID 05/03/19 06/01/19 History Escitalopram * [Lexapro *] 20 mg PO QAM 05/03/19 06/01/19 History Albuterol 0.5% CONC NEB.SUZY* 1 mg .SEE ORDER Q4H PRN 05/19/19 06/01/19 History [Albuterol 0.5ol*] Albuterol HFA INHALER* [Ventolin 1 - 2 puff INH Q4H PRN 05/19/19 06/01/19 History HFA Inhaler*] EPINEPHrine [Epipen] 0.3 mg IJ ONCE PRN 05/19/19 05/19/19 History Fenofibrate Nanocrystallized 160 mg PO 1330 05/19/19 06/01/19 History [Fenofibrate] Latanoprost 0.005%* [Xalatan 1 drop BOTH EYES BEDTIME 05/19/19 06/01/19 History 0.005%*] Nicotrol 10mg Inhaler 10 mg PO Q3H PRN 05/19/19 06/01/19 History Discharge Instructions following Orthopedic Surgery: DC HOME Activity: * Weight Bearing as tolerated * Continue physical therapy and occupational therapy exercises as shown Hip replacements: Continue Hip Precautions- do not cross legs or bend greater than 90 degrees/squat Wound care: * OK to shower on post-op day 3, no bathing, swimming, or submerging wound. * Use gentle soap, pat dry. Cover with gauze, MARCI wrap or tape. * Visiting home nurse to do wound checks. Call Orthopedic office for: * Increased drainage * Redness * Increased pain * Fever Go to ER with shortness of breath or chest pain. Diet: * Regular diet * Increase fluids and fiber to prevent constipation. * Continue to use stool softeners, call office if no bowel motion within 48 hours. Medications See Home Medication List in your packet for medications that you should take after discharge. DVT Prophylaxis: Eliquis Dosin.5 mg, 1 tab every 12 hours x 30 days Pain Control: Percocet Dosin/325 mg 1-2 tabs by mouth every 4-6 hours as needed for pain. Maximum of 10 tabs per day. Please note that Percocet contains Tylenol (acetaminophen). Maximum daily dose of Tylenol is 4000 mg from all sources. Antibiotics are required prior to any dental work. FOLLOW UP: Follow up with Dr. Odom Within 10-14 days, call for appointment Please call our office with any questions or concerns ([phone])
[2019-06-04 10:57] VITALS: BP 123/68
== END 2019-06-04 12:19 | disposition home health service (06) | DRG 301 ==
LOC: AA 08:45 → SSU 15:38
PROVIDERS: ADMIT Orthopaedic Surgery Adult Reconstructive Orthopaedic Surgery; ATTEND Orthopaedic Surgery Adult Reconstructive Orthopaedic Surgery
PROC: 0SRB04A Replacement of Left Hip Joint with Ceramic on Polyethylene Synthetic Substitute, Uncemented, Open Approach (ICD-10-PCS; principal; 2019-06-01 11:30)
DX: M16.12 Unilateral primary osteoarthritis, left hip (principal); I10 Essential (primary) hypertension; J44.9 Chronic obstructive pulmonary disease, unspecified; E78.00 Pure hypercholesterolemia, unspecified; G89.29 Other chronic pain; M54.9 Dorsalgia, unspecified; F17.210 Nicotine dependence, cigarettes, uncomplicated; E78.5 Hyperlipidemia, unspecified; M32.9 Systemic lupus erythematosus, unspecified; G47.33 Obstructive sleep apnea (adult) (pediatric); F32.9 Major depressive disorder, single episode, unspecified; K21.9 Gastro-esophageal reflux disease without esophagitis; E11.9 Type 2 diabetes mellitus without complications; F41.9 Anxiety disorder, unspecified; Z90.49 Acquired absence of other specified parts of digestive tract; Z98.42 Cataract extraction status, left eye; Z98.41 Cataract extraction status, right eye; Z79.84 Long term (current) use of oral hypoglycemic drugs; Z88.0 Allergy status to penicillin; Z88.2 Allergy status to sulfonamides; Z88.6 Allergy status to analgesic agent; Z91.030 Bee allergy status; Z91.040 Latex allergy status; Z91.048 Other nonmedicinal substance allergy status; Z82.49 Family history of ischemic heart disease and other diseases of the circulatory system; Z83.3 Family history of diabetes mellitus; Z80.0 Family history of malignant neoplasm of digestive organs; Z80.1 Family history of malignant neoplasm of trachea, bronchus and lung
CPT/HCPCS: 36415; 80048; 85014; 85018; 85049; 88304; 88311; A9270-GY; C1713; C1776; G8978-GP-CJ; J1100; J1170; J2250; J2405; J2704; J2795; J3010

== ENCOUNTER 2020-09-26 12:39 | Inpatient (IN) ==
[~2020-09-26 12:39] MED LIST changes: -Acetaminophen TAB* 325 MG PO ONE; +Buffered Lidocaine 1% SYRIN 1 ml INTRADERM ONE; -Buffered Lidocaine 1% SYRIN* 1 ML/SYRINGE INTRADERM ONE; -Famotidine IV* 10 MG/ML 2 ML (20 mg) IV ONE; -Lactated Ringers 1000 ML Bag* 1,000 ML IV SCH; +Lactated Ringers 1000 ml BAG 1,000 ML IV SCH; -Tranexamic Acid 1,000 MG in NS 0.9% 50 ML* (outpatient use) IV SCH
[2020-09-26] MEDS ORDERED: Midazolam 2 mg/2 ml VIAL 1 mg/ml 2 ml VIAL (2 mg) ONE (12:48)
[2020-09-26] MEDS ORDERED: Propofol 10 MG/ML 20 ML BTL ONE ×2 (12:50→16:42)
[2020-09-26] MEDS ORDERED: Ondansetron 4 mg VIAL 2 MG/ML 2 ml VIAL ONE (12:50)
[2020-09-26] MEDS ORDERED: Clindamycin 900 MG/D5W BAG 900 MG/50 ML BAG IVPB ONE (13:07)
[2020-09-26] MEDS ORDERED: Buffered Lidocaine 1% SYRIN 1 ml INTRADERM ONE (13:07)
[2020-09-26] MEDS ORDERED: Dexmedetomidine 200 mcg/2 ml 2 ml VIAL (200 mcg) ONE (14:35)
[2020-09-26] MEDS ORDERED: Acetaminophen IV 1 GM/100ML 100 ML ONE (14:36)
[2020-09-26] MEDS ORDERED: fentaNYL 100 mcg/2 ml 50 MCG/ML VIAL ONE (16:09)
[2020-09-26] MEDS ORDERED: Ondansetron 4 mg VIAL 2 MG/ML 2 ml VIAL IV PRN ×2 (16:15→17:33)
[2020-09-26] MEDS ORDERED: Ondansetron ODT 4 mg TAB 4 MG TAB PO PRN (16:15)
[2020-09-26] MEDS ORDERED: Magnesium Hydroxide LIQ 30 ML UDC PO PRN (16:15)
[2020-09-26] MEDS ORDERED: diPHENhydraMINE IV 50 MG/ML 1 ml VIAL (BENADRYL) IV PRN (16:15)
[2020-09-26] MEDS ORDERED: diPHENhydraMINE 25 mg TAB PO PRN (16:15)
[2020-09-26] MEDS ORDERED: Lactulose 30 ml UDC PO PRN (16:15)
[2020-09-26] MEDS ORDERED: fentaNYL 100 mcg/2 ml 50 MCG/ML VIAL IV PRN (17:33)
[2020-09-26] MEDS ORDERED: HYDROmorphone 1 MG/1 ML SYRINGE IV PRN (17:33)
[2020-09-26] MEDS ORDERED: Naloxone 0.4 mg VIAL 0.4 mg/ml 1 ml VIAL IV PRN (17:33)
[2020-09-26] MEDS ORDERED: fentaNYL PATCH 12 MCG/HR 1 PATCH TRANSDERM SCH (20:00)
[2020-09-26] MEDS: Lactated Ringers 1000 ml BAG 1,000 ML IV SCH (20:00)
[2020-09-26] MEDS ORDERED: Dextrose 50% Syringe 50 ml 25 GM/50 ML SYRINGE IV PUSH PRN (21:45)
[2020-09-26] MEDS: Magnesium Hydroxide LIQ 30 ML UDC PO SCH (22:12)
[2020-09-27] MEDS ORDERED: Polyethylene Glycol 3350 17 GM PACKET PO PRN (00:05)
[2020-09-27] MEDS: Clindamycin 600 MG/D5W BAG 600 MG/50 ML BAG IV SCH ×3 (00:19→16:00)
[2020-09-27 06:55] LABS: Hematocrit 29 % (35-47); Hemoglobin 9.3 g/dL (12.0-16.0); Mean Platelet Volume 9.7 fL (7.4-10.4); Platelet Count 163 10^3/uL (150-450)
[2020-09-27 07:19] LABS: BUN/Creatinine Ratio 25.6 (8-20); Calcium 8.2 mg/dL (8.6-10.3); EGFR African American 205.7 (>60); Potassium 3.8 mmol/L (3.5-5.0)
[2020-09-27] MEDS: fentaNYL Patch Check Q Shift NOTE FOLLOW UP SCH ×2 (07:51→19:06)
[2020-09-27] MEDS: Potassium Chlor 20 meq TAB.ER PO SCH (07:52)
[2020-09-27] MEDS: Vitamin THERAPEUTIC TAB PO SCH (07:52)
[2020-09-27] MEDS: Magnesium Hydroxide LIQ 30 ML UDC PO SCH ×3 (07:52→21:23)
[2020-09-27] MEDS: Lactated Ringers 1000 ml BAG 1,000 ML IV SCH (07:57)
[2020-09-27 12:19] LABS: White Blood Count 8.5 10^3/uL (3.5-10.8)
[2020-09-27] MEDS ORDERED: Betaxolol 0.5 % OPHTH.SOLN 5 ML BOTH EYES SCH (18:00)
[2020-09-27] MEDS ORDERED: Latanoprost 0.005% 2.5 ml BTL BOTH EYES SCH (21:00)
[2020-09-28 06:15] LABS: Hematocrit 29 % (35-47); Hemoglobin 9.4 g/dL (12.0-16.0); Mean Platelet Volume 9.2 fL (7.4-10.4); Platelet Count 165 10^3/uL (150-450)
[2020-09-28] MEDS: fentaNYL Patch Check Q Shift NOTE FOLLOW UP SCH (06:45)
[2020-09-28] MEDS: Magnesium Hydroxide LIQ 30 ML UDC PO SCH (09:33)
[2020-09-28] MEDS: Potassium Chlor 20 meq TAB.ER PO SCH (09:40)
[2020-09-28] MEDS: Vitamin THERAPEUTIC TAB PO SCH (09:40)
[2020-09-28 11:50] VITALS: BP 134/74
== END 2020-09-28 14:15 | disposition home health service (06) | DRG 301 ==
LOC: AA 12:39 → SSU 19:42
PROVIDERS: ADMIT Orthopaedic Surgery Adult Reconstructive Orthopaedic Surgery; ATTEND Orthopaedic Surgery Adult Reconstructive Orthopaedic Surgery

== ENCOUNTER 2021-07-21 13:13 | Observation (INO) ==
[2021-07-21 14:42] LABS: ALT 12 U/L (7-52); AST 19 U/L (13-39); Albumin 3.7 g/dL (3.2-5.2); Alkaline Phosphatase 101 U/L (35-149); Anion Gap 9 mmol/L (2-11); Blood Urea Nitrogen 7 mg/dL (6-24); CO2 Carbon Dioxide 30 mmol/L (22-32); Calcium 8.7 mg/dL (8.6-10.3); Chloride 99 mmol/L (101-111); EGFR African American 267.2 (>60); EGFR Non-African American 220.8 (>60); Globulin 3.8 g/dL (2-4); Glucose 154 mg/dL (70-100); Potassium 3.5 mmol/L (3.5-5.0); Sodium 138 mmol/L (135-145); Total Protein 7.5 g/dL (6.4-8.9)
[2021-07-21 14:48] LABS: ABS Eosinophils 0.1 10^3/ul (0-0.6); ABS Lymphocytes 1.3 10^3/ul (1.0-4.8); ABS Monocytes 0.6 10^3/ul (0-0.8); ABS Neutrophils 7.8 10^3/ul (1.5-7.7); Eosinophil % 0.8 %; Hematocrit 35 % (35-47); Hemoglobin 11.1 g/dL (12.0-16.0); Lymphocyte % 13.3 %; Mean Corpuscular HGB Conc 32 g/dL (31-36); Mean Corpuscular Hemoglobin 24 pg (27-31); Mean Corpuscular Volume 75 fL (80-97); Mean Platelet Volume 8.8 fL (7.4-10.4); Nucleated Red Blood Cells % 0.2; Platelet Count 279 10^3/uL (150-450); Red Blood Count 4.65 10^6 /uL (3.70-4.87); Red Cell Distribution Width 17 % (10-15); White Blood Count 9.9 10^3/uL (3.5-10.8)
[2021-07-21] MEDS ORDERED: Ondansetron 4 mg VIAL 2 MG/ML 2 ml VIAL IV PRN (17:26)
[2021-07-21] MEDS ORDERED: Albuterol HFA INHALER 8 gm MDI INH PRN (17:37)
[2021-07-21 17:46] LABS: Venous Bicarbonate HCO3 30.7 mmol/L (24-28)
[2021-07-21] MEDS ORDERED: Dextrose 50% Syringe 50 ml 25 GM/50 ML SYRINGE IV PUSH PRN (18:04)
[2021-07-21 18:15] LABS: Alcohol, S < 13 mg/dL (<13)
[2021-07-21] MEDS: Potassium Chloride IV 20 MEQ in Lactated Ringers 1000 ml BAG 1,000 ML IVPB SCH (23:16)
[2021-07-22 06:55] LABS: Hematocrit 30 % (35-47); Hemoglobin 9.8 g/dL (12.0-16.0); Mean Corpuscular HGB Conc 33 g/dL (31-36); Mean Corpuscular Hemoglobin 24 pg (27-31); Mean Corpuscular Volume 74 fL (80-97); Platelet Count 287 10^3/uL (150-450); Red Blood Count 4.05 10^6 /uL (3.70-4.87); Red Cell Distribution Width 17 % (10-15); White Blood Count 8.5 10^3/uL (3.5-10.8)
[2021-07-22] MEDS ORDERED: Buffered Lidocaine 1% SYRIN 1 ml INTRADERM ONE (07:01)
[2021-07-22 07:02] LABS: Anion Gap 10 mmol/L (2-11); Blood Urea Nitrogen 5 mg/dL (6-24); CO2 Carbon Dioxide 30 mmol/L (22-32); Chloride 99 mmol/L (101-111); EGFR African American 277.5 (>60); EGFR Non-African American 229.3 (>60); Glucose 117 mg/dL (70-100); Potassium 3.2 mmol/L (3.5-5.0); Sodium 139 mmol/L (135-145)
[2021-07-22] MEDS ORDERED: Midazolam 2 mg/2 ml VIAL 1 mg/ml 2 ml VIAL (2 mg) ONE (07:08)
[2021-07-22] MEDS ORDERED: fentaNYL 100 mcg/2 ml 50 MCG/ML VIAL ONE (07:08)
[2021-07-22] MEDS ORDERED: Propofol 10 MG/ML 20 ML BTL ONE ×2 (07:08→07:56)
[2021-07-22] MEDS ORDERED: Lidocaine 2% PF 5 ML VIAL ONE (07:09)
[2021-07-22 07:10] LABS: ABS Eosinophils 0.1 10^3/ul (0-0.6); ABS Lymphocytes 1.6 10^3/ul (1.0-4.8); ABS Monocytes 0.6 10^3/ul (0-0.8); ABS Neutrophils 6.2 10^3/ul (1.5-7.7); Eosinophil % 0.8 %; Lymphocyte % 19.3 %
[2021-07-22 07:11] LABS: Anisocytosis 1+; Microcytosis 2+
[2021-07-22] MEDS ORDERED: Lactated Ringers 1000 ml BAG 1,000 ML IV SCH (08:00)
[2021-07-22 08:18] LABS: Magnesium 1.1 mg/dL (1.9-2.7)
[2021-07-22] MEDS ORDERED: Ondansetron 4 mg VIAL 2 MG/ML 2 ml VIAL IV PRN (08:34)
[2021-07-22] MEDS ORDERED: Metoclopramide 5 MG/ML VIAL (10 mg) IV PRN (08:34)
[2021-07-22] MEDS ORDERED: Naloxone 0.4 mg VIAL 0.4 mg/ml 1 ml VIAL IV PRN (08:34)
[2021-07-22] MEDS ORDERED: HYDROmorphone 1 MG/1 ML SYRINGE IV PRN (08:34)
[2021-07-22] MEDS ORDERED: Acetaminophen IV 1 GM/100ML 100 ML IV ONE ×2 (08:34→08:39)
[2021-07-22] MEDS ORDERED: FERROUS GLUCONATE PO SCH (09:00)
[2021-07-22] MEDS: Potassium Chloride IV 20 MEQ in Lactated Ringers 1000 ml BAG 1,000 ML IVPB SCH ×2 (09:53→19:23)
[2021-07-22] MEDS: Potassium Chlor 20 meq TAB.ER PO SCH (10:14)
[2021-07-22] MEDS: Lidocaine PATCH 5% PATCH TRANSDERM SCH (10:14)
[2021-07-22] MEDS ORDERED: Magnesium Sulf 4 GM/100 ML IV 4,000 MG/100 ML BAG IVPB ONE (12:16)
[2021-07-22] MEDS ORDERED: Lidocaine Patch REMOVE PATCH PATCH OFF SCH (21:00)
[2021-07-23] MEDS: Potassium Chloride IV 20 MEQ in Lactated Ringers 1000 ml BAG 1,000 ML IVPB SCH (05:31)
[2021-07-23 07:02] LABS: Hematocrit 29 % (35-47); Hemoglobin 9.1 g/dL (12.0-16.0)
[2021-07-23 07:10] LABS: Anion Gap 5 mmol/L (2-11); Blood Urea Nitrogen 3 mg/dL (6-24); CO2 Carbon Dioxide 30 mmol/L (22-32); Calcium 7.7 mg/dL (8.6-10.3); Chloride 104 mmol/L (101-111); EGFR African American 277.5 (>60); EGFR Non-African American 229.3 (>60); Glucose 154 mg/dL (70-100); Potassium 3.8 mmol/L (3.5-5.0); Sodium 139 mmol/L (135-145)
[2021-07-23 07:57] LABS: Magnesium 1.8 mg/dL (1.9-2.7)
[2021-07-23 08:23] VITALS: BP 143/85
[2021-07-23] MEDS: Lidocaine PATCH 5% PATCH TRANSDERM SCH (08:50)
[2021-07-23] MEDS: Potassium Chlor 20 meq TAB.ER PO SCH (08:51)
[2021-07-23] MEDS ORDERED: Enoxaparin 40 MG/0.4 ML SYR SUBCUT SCH (12:00)
== END 2021-07-23 10:50 | disposition home or self-care (01) ==
LOC: SSU 13:13 → ED 13:13 → SUATTDRO 17:26 → SSU 19:20
PROVIDERS: ADMIT Internal Medicine; ATTEND Hospitalist